=== PATIENT | male | born 1955 ===

== ENCOUNTER 2020-11-04 07:51 | Outpatient (REF) | payer OTHER, SELFPAY ==
--- NOTE | 2020-11-04 | PFT_ITS ---
FLOWS: FEV1 of 86% of predicted at 2.96 L. FVC 74% of predicted at 3.44 L. FEV1 to FVC ratio of 0.86. No bronchodilator response. LUNG VOLUMES: Total lung capacity 64% of predicted at 4.49 L. Residual volume 38% of predicted at 0.90 L. Slow vital capacity 77% of predicted at 3.59 L. Expiratory reserve volume 130% of predicted at 1.75 L. Diffusion capacity is mildly decreased, diffusion capacity adjust to normal after correction for alveolar ventilation. IMPRESSION: Mild restrictive ventilatory defect with no bronchodilator response. Jarret Weir MD AP/MODL / [id number]
== END 2020-11-04 07:52 | disposition home or self-care (01) ==
LOC: HO.RESP 07:51
PROVIDERS: PCP Internal Medicine; Visit Provider Hospitalist
DX: J45.40 Moderate persistent asthma, uncomplicated (principal)
CPT/HCPCS: 94060; 94727; 94729

== ENCOUNTER 2021-05-26 07:34 | Outpatient (REF) | payer OTHER, SELFPAY ==
--- NOTE | ~2021-05-26 | CT_ITS ---
EXAMINATION: CT CHEST WITHOUT CONTRAST CLINICAL INFORMATION: Sarcoidosis, unspecified. COMPARISON: None TECHNIQUE: Multidetector volumetric CT imaging of the chest was done. Axial MIP volume rendering provided. Sagittal and coronal reformatted images were obtained. This CT examination was performed using dose optimization techniques as appropriate, variously including the following: *Automated exposure control *Adjustment of mA and/or kV according to patient size (this includes techniques or standardized protocols for targeted exams where dose is matched to indication/reason for exam; i.e. extremities or head) *Use of iterative reconstruction technique DLP: 169 mGy-cm FINDINGS: LUNGS/PLEURA/AIRWAYS: Mild biapical pleural thickening and scarring is seen. Multiple nodules are seen bilaterally. Organ Tuner nodules are as follows: Right apex: 0.5 cm; image 127, series 7. Left upper lobe: 0.7 cm; image 207, series 7. Left upper lobe: 0.5 cm; image 47, series 7. Left upper lobe, posterior: 0.5 cm; image 252, series 7. Left lower lobe, posterolateral: 0.5 cm; image 525, series 7. Focal groundglass opacities are seen in the lingula (payable representative image 314, series 7), right lower lobe anterior (image 482, series 7) and right lower lobe posterior (image 524, series 7). There are no pleural effusions. The airways are patent. MEDIASTINUM: Surgical clips overlie the anteroinferior neck soft tissues without abnormality. The visualized thyroid gland is unremarkable. The thoracic aorta is unremarkable. Minimal coronary artery calcifications are seen. No pericardial effusion. Multiple mildly enlarged to enlarged mediastinal lymph nodes are seen. A payable representative aorticopulmonary lymph node measures 1.1 cm in short axis (image 23, series 3). A right precarinal lymph node measures 1.4 cm in short axis (image 26, series 3). A right subcarinal lymph node measures 1.4 cm in short axis (image 31, series 3). UPPER ABDOMEN: Status post cholecystectomy. MUSCULOSKELETAL: Mild thoracolumbar dextro scoliosis without suspicious abnormality. SOFT TISSUES: Unremarkable. CT/CT chest wo con IMPRESSION: 1. Mediastinal lymphadenopathy, pulmonary nodules and groundglass opacities bilaterally are nonspecific, but correlate with history of sarcoidosis. Given the pulmonary nodules measuring up to 0.7 cm, following Fleischner Society guidelines, a follow-up CT scan is recommended in 6 months as there is no previous study available for comparison.
== END 2021-05-26 07:35 | disposition home or self-care (01) ==
LOC: HO.CT 07:34
PROVIDERS: PCP Internal Medicine; Visit Provider Hospitalist
DX: D86.9 Sarcoidosis, unspecified (principal); J98.4 Other disorders of lung
CPT/HCPCS: 71250

== ENCOUNTER → 2021-06-09 09:35 | Outpatient (BNVA) | payer OTHER, SELFPAY | PROVIDERS: PCP Internal Medicine; Visit Provider Hospitalist ==

== ENCOUNTER 2022-02-27 14:37 | Outpatient (REF) | payer MEDICARE, SELFPAY ==
[2022-02-27 14:58] LABS: MANUAL DIFF FLAG NO
[2022-02-27 15:19] LABS: Basophils Percent Auto 0.2 % (0-2); Eosinophils Absolute Auto 0.1 X10*3/uL (0.0-0.4); Eosinophils Percent Auto 1.9 % (0-4); Hemoglobin 15.8 g/dl (14.0-18.0); Imm Gran Abs Auto 0.02 X10*3/uL (0.00-0.03); Imm Gran Pct Auto 0.5 % (0.0-0.4); Lymphocytes Percent Auto 23.3 % (20-40); Mean Corpuscular HGB Conc 34.3 g/dl (31.0-36.0); Mean Corpuscular Hemoglobin 30.6 pg (27.0-33.0); Mean Platelet Volume 9.3 fL (9.4-12.4); Monocytes Absolute Auto 0.5 X10*3/uL (0.1-1.2); Monocytes Percent Auto 11.1 % (2-11); Neutrophils Absolute Auto 2.7 x10*3/uL (2.0-8.3); Platelet Count 198 X10*3/uL (160-400); Red Blood Count 5.17 X10*6/uL (4.60-5.80); Red Cell Distribution Width 12.8 % (11.0-16.0); White Blood Count 4.2 X10*3/uL (4.8-10.8)
[2022-02-27 15:43] LABS: Alanine Aminotransferase 38 U/L (0-40); Albumin Level 4.4 g/dL (3.5-5.0); Alkaline Phosphatase 99 U/L (39-117); Anion Gap 12 (12-20); Aspartate Amino Transferase 22 U/L (5-37); Bilirubin Direct 0.2 mg/dL (0.0-0.5); Bilirubin Total 0.8 mg/dL (0.0-1.0); Blood Urea Nitrogen 24 mg/dL (9-16); Calcium 9.4 mg/dL (8.4-10.2); Carbon Dioxide 27 mmol/L (22-29); Chloride 102 mmol/L (96-108); Estimated Glomerular Filt Rate > 60; Glucose Random 224 mg/dL (60-115); Potassium 4.3 mmol/L (3.3-5.1); Sodium 137 mmol/L (135-145); Total Protein 7.4 g/dL (6.5-8.0)
[2022-02-27 15:59] LABS: Erythrocyte Sedimentation Rate 7 MM/HR (0-15)
[2022-03-06 15:21] LABS: Angiotensin Converting Enzyme 41 U/L (9-67)
== END 2022-02-27 14:38 | disposition home or self-care (01) ==
LOC: HO.LAB 14:37
PROVIDERS: PCP Internal Medicine; Visit Provider Hospitalist
DX: D86.9 Sarcoidosis, unspecified (principal)
CPT/HCPCS: 36415; 80048; 80076; 82164; 85025; 85652

== ENCOUNTER → 2022-05-25 08:25 | Outpatient (BNVA) | payer MEDICARE, SELFPAY | PROVIDERS: PCP Internal Medicine; Visit Provider Hospitalist | DX: J84.9 Interstitial pulmonary disease, unspecified (principal); J45.20 Mild intermittent asthma, uncomplicated; R91.8 Other nonspecific abnormal finding of lung field; D86.9 Sarcoidosis, unspecified | CPT/HCPCS: 99212 ==

== ENCOUNTER 2022-08-24 09:58 | Outpatient (REF) | payer MEDICARE, SELFPAY ==
[2022-08-24 10:49] LABS: MANUAL DIFF FLAG NO
[2022-08-24 10:59] LABS: Basophils Percent Auto 0.1 % (0-2); Eosinophils Absolute Auto 0.1 X10*3/uL (0.0-0.4); Eosinophils Percent Auto 1.6 % (0-4); Hematocrit 47.8 % (42.0-52.0); Hemoglobin 16.7 g/dl (14.0-18.0); Imm Gran Abs Auto 0.02 X10*3/uL (0.00-0.03); Imm Gran Pct Auto 0.3 % (0.0-0.4); Lymphocytes Percent Auto 14.1 % (20-40); Mean Corpuscular HGB Conc 34.9 g/dl (31.0-36.0); Mean Corpuscular Hemoglobin 30.7 pg (27.0-33.0); Mean Corpuscular Volume 87.9 fL (80.0-98.0); Mean Platelet Volume 9.2 fL (9.4-12.4); Monocytes Absolute Auto 0.6 X10*3/uL (0.1-1.2); Neutrophils Absolute Auto 5.3 x10*3/uL (2.0-8.3); Neutrophils Percent Auto 75.9 % (45-73); Platelet Count 211 X10*3/uL (160-400); Red Blood Count 5.44 X10*6/uL (4.60-5.80); Red Cell Distribution Width 12.4 % (11.0-16.0)
[2022-08-24 11:42] LABS: Erythrocyte Sedimentation Rate 7 MM/HR (0-15)
[2022-08-24 11:54] LABS: Alanine Aminotransferase 34 U/L (0-40); Alkaline Phosphatase 102 U/L (39-117); Anion Gap 10 (12-20); Aspartate Amino Transferase 23 U/L (5-37); Bilirubin Direct 0.2 mg/dL (0.0-0.5); Bilirubin Total 0.8 mg/dL (0.0-1.0); Blood Urea Nitrogen 21 mg/dL (9-16); Calcium 9.2 mg/dL (8.4-10.2); Carbon Dioxide 27 mmol/L (22-29); Chloride 103 mmol/L (96-108); Estimated Glomerular Filt Rate > 60; Glucose Random 191 mg/dL (60-115); Lipase 36 U/L (8-78); Potassium 4.2 mmol/L (3.3-5.1); Sodium 136 mmol/L (135-145); Total Protein 6.7 g/dL (6.5-8.0)
== END 2022-08-24 09:59 | disposition home or self-care (01) ==
LOC: HO.LAB 09:58
PROVIDERS: PCP Internal Medicine; Visit Provider Hospitalist
DX: R10.9 Unspecified abdominal pain (principal); D86.9 Sarcoidosis, unspecified
CPT/HCPCS: 36415; 80048; 80076; 83690; 85025; 85652; 99212

== ENCOUNTER → 2022-12-22 10:01 | Outpatient (BNVA) | payer MEDICARE, SELFPAY | PROVIDERS: Visit Provider Hospitalist | DX: D86.9 Sarcoidosis, unspecified (principal); R91.8 Other nonspecific abnormal finding of lung field; J18.9 Pneumonia, unspecified organism; J84.9 Interstitial pulmonary disease, unspecified; J45.20 Mild intermittent asthma, uncomplicated; J98.4 Other disorders of lung | CPT/HCPCS: 99212 ==

== ENCOUNTER 2023-05-18 09:16 | Outpatient (AMB) | payer MEDICARE, SELFPAY ==
[2023-05-18 09:27] VITALS: PULSE 78; O2SAT 98; BMI 24.8
--- NOTE | 2023-05-18 09:27 | MHC.OFFVIS ---
Intake Vital Signs 05/18/23 09:27 Height 5 ft 10 in Weight 173 lb BMI 24.8 Pulse 78 Pulse Source Pulse Oximeter Pulse Oximetry (%) 98 Oxygen Delivery Method Room Air Intake Visit Reasons: sarcoidosis Radiology Therapist Required: No Allergies No Known Allergies Allergy (Verified 05/18/23 09:28) HPI HPI Comments History of Present Illness Details The patient is a 66 [id number] gentleman with a known history of sarcoidosis in addition to asthma. Patient may indeed have some endobronchial sarcoid involvement. He had been doing very well intermittently on Breo. More recently in the end of July early August he started developing symptoms consistent with a viral syndrome. He developed worsening respiratory symptoms and was treated by his primary care doctor. Still, he feels like his respiratory symptoms have not recovered 100%. Sometimes he developed episodes of not been able to breathe well. He did try Advair but was not very effective. He was concerned the Breo is more money more expenses. Although he has noticed that works better. He also did have a chest x-ray at [facility] back in September of this year that we personally reviewed demonstrating interval decrease in the hilar lymphadenopathy. Otherwise, no acute disease. His last CT scan of the chest was at [facility] back in 2018. 02/27/2022 the patient is here for a pulmonary follow-up visit. Overall the patient has been doing relatively well. He still has an intermittent cough. Although denies any shortness breath or Any discomfort. He did undergo a CT scan of the chest at [facility]. That was compared to a CT scan he had back in 2018. It appears that he had interval worsening the airspace disease bilaterally in addition to new pulmonary nodules measuring up to 7 mm in size. The ground-glass opacities areas vary between 2 and 4 cm in size. I did compare his CT scan results from [facility] to his last CT scan that he had back in 2020. It appeared that the nodules are relatively stable. Although the areas of airspace disease appeared to be slightly bigger in size. In view of the worsening disease I did talk to the patient about considering treating him with small dose of prednisone to see if we leave the 8 the pulmonary nodules in the airspace disease. And therefore will have a short interval before repeating the CT scan of 3 months to see if the therapy was effective. The patient stands that although this is likely all sarcoid in his lungs we cannot rule out a secondary concomitant medical issues including cancer. 05/25/2022 the patient is here for a pulmonary follow-up visit. Overall he has been feeling better while on the prednisone. Denies any significant shortness of breath or cough. However, the prednisone has resulted on significantly elevated blood sugars and hemoglobin A1c. His diabetes medication for indeed increased. However, still very uncontrolled. He did have a repeat CT scan of the chest done at [facility] demonstrating some improvement some of the parenchymal disease and also some stability. No evidence of any worsening or new nodules which is reassuring. We talked about using immunomodulators to treat his underlying sarcoidosis try to minimize the prednisone adverse effects. The patient is agreeable to this. Talked about different immunomodulators including mycophenolate and methotrexate. Will go ahead and start him on mycophenolate small dose to titrate up in addition to that will have blood work to make sure that he is tolerating the medication. 08/24/2022 the patient is here for a pulmonary follow-up visit. The patient has been responding well to the CellCept. His sugars are now normalized. He has not had any adverse effects from the medication. He is taking 500 mg twice a day. Explained to him that this is a very low dose and is reassuring. From a respiratory status he feels well he denies any significant coughing or shortness of breath. He denies any significant wheezing. Overall he feels like he is responding positively to the medication. His blood work needs to be updated. The patient understands that this medication has potential side effects and he needs to undergo blood work to make sure. The patient has been describing some epigastric discomfort. He is following closely with his GI doctor. Recently had a barium swallow and will follow-up with those results. At this point I doubt that the epigastric discomfort is related to the CellCept but will go ahead and also request additional blood work just to work it up some. His last CT scan was back in May 2022. Will continue to treat him monitor him. As long as he is doing okay will hold off till May [address] scan. If at any point he develops worsening symptoms we may have to consider getting a CT scan sooner. 12/22/2022 the patient is here for pulmonary follow-up visit. He is tolerating the CellCept well. His respiratory symptoms have improved. Denies any wheezing or coughing or shortness of breath. He has been able to work more regularly without being breathless. He feels like is a good medication for him. In the meantime he did follow-up with GI doctor. Is found to have reflux disease and was placed on a PPI. Seems like the GI symptoms are better at this time. Is also good that he is off the prednisone and likely contributing to those discomforts. The patient's sugars also coming down in his hemoglobin A1c is normalizing which is happy about. Based on the fact that he is doing well will continue with current respiratory regimen. Will continue the with current CellCept dose. The patient will need to get blood work over the summer. Will plan to repeat his CT scan at [facility] sometime in May 2023 to follow-up with the interstitial lung changes in the pulmonary nodules. 05/18/2023 the patient is here for a pulmonary follow-up visit. Overall he continues to do well. Continues to tolerate the CellCept. His cough is better and breathlessness as well. No GI side effects at this time. The patient did undergo a CT scan of the chest that was personally by me. Unfortunately he does have some interval increase areas of ground-glass opacities and nodular densities. Therefore I suggested that we increase the CellCept further in a stepwise pattern up to 2 g a day. Once he reaches that therapeutic dose will go ahead and request blood work to make sure that his liver function studies and chemistries and CBC are still within normal limits. [facility] Medical History (Updated 08/24/22 @ 10:40 by Johan Emmanuel MD) Pulmonary nodules ILD (interstitial lung disease) Asthma Chronic restrictive lung disease Sarcoidosis Social History (Updated 06/09/21 @ 10:00 by LAWRENCE Ryan) Patient Tobacco Use Status: Never used Tobacco Review of Systems Const Denies night sweats ENT Denies change in voice, Denies lip swelling, Denies mouth pain, Reports nasal congestion, Reports nasal discharge and Denies tongue swelling Card Denies chest pain Resp Denies cough GI Denies abdominal pain and Denies belching Musc Denies no additional complaints Neuro Denies Neuro-related abnormal movements Psych Denies no additional complaints Tayo/Lymph Denies easy bleeding and Denies lymphadenopathy Aller/Immun Denies lip swelling and Denies tongue swelling Physical Exam Vital Signs: Last Vital Signs Pulse 78 05/18/23 09:27 Pulse Ox 98 10/10/23 09:27 Oxygen Delivery Method Room Air 05/18/23 09:27 BMI result Body Mass Index 24.8 Const General: alert Neck Neck: Yes normal visual inspection, Yes full ROM and Yes no lymphadenopathy Chest Chest palpation & inspection: normal inspection of the chest Resp Effort & Inspection: normal respiratory effort Auscultation: clear to auscultation bilaterally Cardio Rate: regular rate Rhythm: regular rhythm Heart sounds: S1 normal heart sound present and S2 normal heart sound present GI Palpation (GI): Soft to palpation and nontender Auscultation: normal bowel sounds Skin General skin exam: rashes and/or lesions noted Assessment & Plan Assessment & Plan (1) Sarcoidosis: Code(s): D86.9 - Sarcoidosis, unspecified (2) ILD (interstitial lung disease): Code(s): J84.9 - Interstitial pulmonary disease, unspecified (3) Asthma: Code(s): J45.909 - Unspecified asthma, uncomplicated Qualifiers: Asthma severity: mild Asthma persistence: intermittent Asthma complication type: uncomplicated Qualified Code(s): J45.20 - Mild intermittent asthma, uncomplicated (4) Chronic restrictive lung disease: Code(s): J98.4 - Other disorders of lung (5) Pneumonitis: Code(s): J18.9 - Pneumonia, unspecified organism (6) Pulmonary nodules: Code(s): R91.8 - Other nonspecific abnormal finding of lung field Plan increase Mycophenalate 1000mg BID Labs in 2 months F/U 4-6 months Orders: Orders Liver Panel Today D86.9 - Sarcoidosis, unspecified Angiotensin Converting Enzyme Today D86.9 - Sarcoidosis, unspecified Complete Blood Count Auto Diff Today D86.9 - Sarcoidosis, unspecified Basic Metabolic Panel Today D86.9 - Sarcoidosis, unspecified Erythrocyte Sedimentation Rate Today D86.9 - Sarcoidosis, unspecified Medications: Changed From mycophenolate mofetil 500 mg PO BID 60 tabs 6RF To mycophenolate mofetil 1,000 mg (2 x 500 mg) PO BID 30 days 120 tabs 11RF Coding Level of Care Code Est Pt Level 4 (81269) Diagnoses Sarcoidosis D86.9 ILD (interstitial lung disease) J84.9 Mild intermittent asthma without complication J45.20 Asthma severity: mild Asthma persistence: intermittent Asthma complication type: uncomplicated Chronic restrictive lung disease J98.4 Pneumonitis J18.9 Pulmonary nodules R91.8 Time Spent (min) 16
== END 2023-05-18 09:48 | disposition home or self-care (01) ==
PROVIDERS: PCP Nurse Practitioner Primary Care; Visit Provider Hospitalist
DX: D86.9 Sarcoidosis, unspecified (principal); J84.9 Interstitial pulmonary disease, unspecified; J45.20 Mild intermittent asthma, uncomplicated; J98.4 Other disorders of lung; J18.9 Pneumonia, unspecified organism; R91.8 Other nonspecific abnormal finding of lung field
CPT/HCPCS: 99214

== ENCOUNTER → 2023-05-18 09:16 | Outpatient (BNVA) | payer MEDICARE, SELFPAY | PROVIDERS: Visit Provider Hospitalist | DX: D86.9 Sarcoidosis, unspecified (principal); J45.20 Mild intermittent asthma, uncomplicated; R91.8 Other nonspecific abnormal finding of lung field; J84.9 Interstitial pulmonary disease, unspecified; J98.4 Other disorders of lung; J18.9 Pneumonia, unspecified organism | CPT/HCPCS: 99212 ==

== ENCOUNTER 2023-07-27 09:33 | Outpatient (REF) | payer MEDICARE, SELFPAY ==
[2023-07-27 09:54] LABS: MANUAL DIFF FLAG NO
[2023-07-27 10:00] LABS: Basophils Percent Auto 0.2 % (0-2); Eosinophils Absolute Auto 0.1 X10*3/uL (0.0-0.4); Eosinophils Percent Auto 2.2 % (0-4); Hematocrit 46.6 % (42.0-52.0); Imm Gran Abs Auto 0.02 X10*3/uL (0.00-0.03); Imm Gran Pct Auto 0.5 % (0.0-0.4); Lymphocytes Percent Auto 23.4 % (20-40); Mean Corpuscular HGB Conc 34.3 g/dl (31.0-36.0); Mean Corpuscular Hemoglobin 30.5 pg (27.0-33.0); Mean Corpuscular Volume 88.8 fL (80.0-98.0); Mean Platelet Volume 9.4 fL (9.4-12.4); Monocytes Absolute Auto 0.5 X10*3/uL (0.1-1.2); Neutrophils Absolute Auto 2.5 x10*3/uL (2.0-8.3); Neutrophils Percent Auto 60.7 % (45-73); Platelet Count 180 X10*3/uL (160-400); Red Blood Count 5.25 X10*6/uL (4.60-5.80); Red Cell Distribution Width 12.8 % (11.0-16.0); White Blood Count 4.1 X10*3/uL (4.8-10.8)
[2023-07-27 10:38] LABS: Erythrocyte Sedimentation Rate 5 MM/HR (0-15)
[2023-07-27 10:39] LABS: Alanine Aminotransferase 49 U/L (0-40); Albumin Level 4.1 g/dL (3.5-5.0); Alkaline Phosphatase 89 U/L (39-117); Anion Gap 12 (12-20); Aspartate Amino Transferase 25 U/L (5-37); Bilirubin Direct 0.2 mg/dL (0.0-0.5); Bilirubin Total 0.9 mg/dL (0.0-1.0); Blood Urea Nitrogen 25 mg/dL (9-16); Calcium 9.2 mg/dL (8.4-10.2); Carbon Dioxide 27 mmol/L (22-29); Chloride 105 mmol/L (96-108); Estimated Glomerular Filt Rate > 60; Glucose Random 169 mg/dL (60-115); Potassium 4.5 mmol/L (3.3-5.1); Sodium 139 mmol/L (135-145); Total Protein 6.8 g/dL (6.5-8.0)
[2023-08-01 07:52] LABS: Angiotensin Converting Enzyme 44 U/L (9-67)
== END 2023-07-27 09:34 | disposition home or self-care (01) ==
LOC: HO.LAB 09:33
PROVIDERS: PCP Nurse Practitioner Primary Care; Visit Provider Hospitalist
DX: D86.9 Sarcoidosis, unspecified (principal)
CPT/HCPCS: 36415; 80048; 80076; 82164; 85025; 85652

== ENCOUNTER → 2023-12-03 06:54 | Outpatient (BNV) | payer MEDICARE, SELFPAY | PROVIDERS: PCP Nurse Practitioner Primary Care; Visit Provider Internal Medicine | DX: I49.8 Other specified cardiac arrhythmias (principal) | CPT/HCPCS: 93010 ==

== ENCOUNTER 2023-12-03 09:46 | Outpatient (AMB) | payer MEDICARE, SELFPAY ==
--- NOTE | 2023-12-03 09:52 | A.OFFVIS_ITS ---
Vital Signs 12/03/23 09:53 Height 5 ft 10 in Weight 174 lb 2.643 oz BMI 25.0 BP 118/70 Blood Pressure Location Lt brachial Position Sitting Pulse 70 Pulse Source Pulse Oximeter Pulse Oximetry (%) 97 Oxygen Delivery Method Room Air Intake Visit Reasons: sarcoidosis Rn School Required: No Allergies No Known Allergies Allergy (Verified 12/03/23 09:55) HPI Comments Details: The patient is a 67-year-old gentleman with a known history of sarcoidosis in addition to asthma. Patient may indeed have some endobronchial sarcoid involvement. He had been doing very well intermittently on Breo. More recently in the end of July early August he started developing symptoms consistent with a viral syndrome. He developed worsening respiratory symptoms and was treated by his primary care doctor. Still, he feels like his respiratory symptoms have not recovered 100%. Sometimes he developed episodes of not been able to breathe well. He did try Advair but was not very effective. He was concerned the Breo is more money more expenses. Although he has noticed that works better. He also did have a chest x-ray at [facility] back in September of this year that we personally reviewed demonstrating interval decrease in the hilar lymphadenopathy. Otherwise, no acute disease. His last CT scan of the chest was at [facility] back in 2018. 02/27/2022 the patient is here for a pulmonary follow-up visit. Overall the patient has been doing relatively well. He still has an intermittent cough. Although denies any shortness breath or Any discomfort. He did undergo a CT scan of the chest at [facility]. That was compared to a CT scan he had back in 2018. It appears that he had interval worsening the airspace disease bilaterally in addition to new pulmonary nodules measuring up to 7 mm in size. The ground-glass opacities areas vary between 2 and 4 cm in size. I did compare his CT scan results from [facility] to his last CT scan that he had back in 2020. It appeared that the nodules are relatively stable. Although the areas of airspace disease appeared to be slightly bigger in size. In view of the worsening disease I did talk to the patient about considering treating him with small dose of prednisone to see if we leave the 8 the pulmonary nodules in the airspace disease. And therefore will have a short interval before repeating the CT scan of 3 months to see if the therapy was effective. The patient stands that although this is likely all sarcoid in his lungs we cannot rule out a secondary concomitant medical issues including cancer. 05/25/2022 the patient is here for a pulmonary follow-up visit. Overall he has been feeling better while on the prednisone. Denies any significant shortness of breath or cough. However, the prednisone has resulted on significantly elevated blood sugars and hemoglobin A1c. His diabetes medication for indeed increased. However, still very uncontrolled. He did have a repeat CT scan of the chest done at [facility] demonstrating some improvement some of the parenchymal disease and also some stability. No evidence of any worsening or new nodules which is reassuring. We talked about using immunomodulators to treat his underlying sarcoidosis try to minimize the prednisone adverse effects. The patient is agreeable to this. Talked about different immunomodulators including mycophenolate and methotrexate. Will go ahead and start him on mycophenolate small dose to titrate up in addition to th at will have blood work to make sure that he is tolerating the medication. 08/24/2022 the patient is here for a pulmonary follow-up visit. The patient has been responding well to the CellCept. His sugars are now normalized. He has not had any adverse effects from the medication. He is taking 500 mg twice a day. Explained to him that this is a very low dose and is reassuring. From a respiratory status he feels well he denies any significant coughing or shortness of breath. He denies any significant wheezing. Overall he feels like he is responding positively to the medication. His blood work needs to be updated. The patient understands that this medication has potential side effects and he needs to undergo blood work to make sure. The patient has been describing some epigastric discomfort. He is following closely with his GI doctor. Recently had a barium swallow and will follow-up with those results. At this point I doubt that the epigastric discomfort is related to the CellCept but will go ahead and also request additional blood work just to work it up some. His last CT scan was back in May 2022. Will continue to treat him monitor him. As long as he is doing okay will hold off till May [address] scan. If at any point he develops worsening symptoms we may have to consider getting a CT scan sooner. 12/22/2022 the patient is here for pulmonary follow-up visit. He is tolerating the CellCept well. His respiratory symptoms have improved. Denies any wheezing or coughing or shortness of breath. He has been able to work more regularly without being breathless. He feels like is a good medication for him. In the meantime he did follow-up with GI doctor. Is found to have reflux disease and was placed on a PPI. Seems like the GI symptoms are better at this time. Is also good that he is off the prednisone and likely contributing to those discomforts. The patient's sugars also coming down in his hemoglobin A1c is normalizing which is happy about. Based on the fact that he is doing well will continue with current respiratory regimen. Will continue the with current CellCept dose. The patient will need to get blood work over the summer. Will plan to repeat his CT scan at [facility] sometime in May 2023 to follow-up with the interstitial lung changes in the pulmonary nodules. 05/18/2023 the patient is here for a pulmonary follow-up visit. Overall he continues to do well. Continues to tolerate the CellCept. His cough is better and breathlessness as well. No GI side effects at this time. The patient did undergo a CT scan of the chest that was personally by me. Unfortunately he does have some interval increase areas of ground-glass opacities and nodular densities. Therefore I suggested that we increase the CellCept further in a stepwise pattern up to 2 g a day. Once he reaches that therapeutic dose will go ahead and request blood work to make sure that his liver function studies and chemistries and CBC are still within normal limits. 12/03/2023 the patient is here for pulmonary follow-up. The patient states that several months ago he was started developing increasing shortness of katie th. He could not explain the symptoms. Dyspnea on exertion moderate severity. He went to primary care doctor. He did have an EKG demonstrating sinus arrhythmia. In addition to that he was not provided any other therapies that he is aware of. He did undergo an echocardiogram. The patient states that he did have a stress test in the past but many years ago. In addition to that he has been on the higher dose CellCept 2 g a day. He did have blood work number which was reassuring and also had blood work with his primary care doctor. We did look at the last CT scan that he had back in a lining stitcher 2022 demonstrating interval worsening of the interstitial lung disease and does want increase the CellCept to the current dose. Therefore request a chest x-ray. His respiratory exam is fairly stable and does feel better so therefore I do not think moving up the CT scan will be necessary at this time. If the x-ray is abnormal then will get a CT scan earlier time. Will also repeat the EKG. The patient may benefit from a cardiac stress if he continues have symptoms. [facility] Medical History (Updated 08/24/22 @ 10:40 by Johan Emmanuel MD) Pulmonary nodules ILD (interstitial lung disease) Asthma Chronic restrictive lung disease Sarcoidosis Social History (Updated 06/09/21 @ 10:00 by LAWRENCE Ryan) Patient Tobacco Use Status: Never used Tobacco Review of Systems Const Denies night sweats ENT Denies change in voice, Denies lip swelling, Denies mouth pain, Reports nasal congestion, Reports nasal discharge and Denies tongue swelling Card Denies chest pain Resp Denies cough GI Denies abdominal pain and Denies belching Musc Denies no additional complaints Neuro Denies Neuro-related abnormal movements Psych Denies no additional complaints Tayo/Lymph Denies easy bleeding and Denies lymphadenopathy Aller/Immun Denies lip swelling and Denies tongue swelling Physical Exam Vital Signs: Last Vital Signs Pulse 70 12/03/23 09:53 BP 118/70 12/03/23 09:53 Pulse Ox 97 12/03/23 09:53 Oxygen Delivery Method Room Air 12/03/23 09:53 BMI result Body Mass Index 25.0 Const General: alert Neck Neck: Yes normal visual inspection, Yes full ROM and Yes no lymphadenopathy Chest Chest palpation & inspection: normal inspection of the chest Resp Effort & Inspection: normal respiratory effort Auscultation: clear to auscultation bilaterally Cardio Rate: regular rate Rhythm: regular rhythm Heart sounds: S1 normal heart sound present and S2 normal heart sound present GI Palpation (GI): Soft to palpation and nontender Auscultation: normal bowel sounds Skin General skin exam: rashes and/or lesions noted Assessment & Plan Assessment & Plan (1) Sarcoidosis: Code(s): D86.9 - Sarcoidosis, unspecified Category: Medical (2) ILD (interstitial lung disease): Code(s): J84.9 - Interstitial pulmonary disease, unspecified Category: Medical (3) Asthma: Code(s): J45.909 - Unspecified asthma, uncomplicated Category: Medical Qualifiers: Asthma complication type: uncomplicated Asthma persistence: intermittent Asthma severity: mild Qualified Code(s): J45.20 - Mild intermittent asthma, uncomplicated (4) Chronic restrictive lung disease: Code(s): J98.4 - Other disorders of lung Category: Medical (5) Pneumonitis: Code(s): J18.9 - Pneumonia, unspecified organism Category: Medical (6) Pulmonary nodules: Code(s): R91.8 - Other nonspecific abnormal finding of lung field Category: Medical Plan continue Mycophenalate 1000mg BID bloodwork CXR EKG CT chest 6 months PETER as needed F/U 4-6 months Orders: Orders CT chest wo IV con 6 Months J18.9 - Pneumonia, unspecified organism, J84.9 - Interstitial pulmonary disease, unspecified, R91.8 - Other nonspecific abnormal finding of lung field ECG 12 lead EKG 12/03/23 D86.9 - Sarcoidosis, unspecified XR chest 2V 12/03/23 D86.9 - Sarcoidosis, unspecified Medications: New albuterol sulfate 90 mcg/actuation 2 inhalations inhalation Q6H PRN 18 grams 12RF shortness of breath or wheezing 30 days J44.9 - Chronic obstructive pulmonary disease, unspecified, R91.8 - Other nonspecific abnormal finding of lung field Coding Level of Care Code Est Pt Level 4 (13076) Diagnoses Sarcoidosis D86.9 ILD (interstitial lung disease) J84.9 Mild intermittent asthma without complication J45.20 Asthma complication type: uncomplicated Asthma persistence: intermittent Asthma severity: mild Chronic restrictive lung disease J98.4 Pneumonitis J18.9 Pulmonary nodules R91.8 Time Spent (min) 17
[2023-12-03 09:53] VITALS: BP 118/70; PULSE 70; O2SAT 97; BMI 25.0
== END 2023-12-03 10:09 | disposition home or self-care (01) ==
PROVIDERS: PCP Nurse Practitioner Primary Care; Visit Provider Hospitalist
DX: D86.9 Sarcoidosis, unspecified (principal); J84.9 Interstitial pulmonary disease, unspecified; J45.20 Mild intermittent asthma, uncomplicated; J98.4 Other disorders of lung; J18.9 Pneumonia, unspecified organism; R91.8 Other nonspecific abnormal finding of lung field
CPT/HCPCS: 99214

== ENCOUNTER 2023-12-03 09:46 | Outpatient (REF) | payer MEDICARE, SELFPAY ==
--- NOTE | ~2023-12-03 | XR_ITS ---
EXAMINATION: XR CHEST CLINICAL INFORMATION: Sarcoidosis, unspecified COMPARISON: Chest CT 05/26/2021 TECHNIQUE: 2 views of the chest were obtained. FINDINGS: Patchy opacities are again seen in the lingula and right lower lobe are without significant change compared to 05/26/2021. There is fullness of the right paratracheal stripe likely due to lymphadenopathy. No pleural effusion. Mild biapical pleural thickening is noted. No significant abnormality is noted involving the heart, bony thorax or soft tissues. XR/XR chest 2V IMPRESSION: Parenchymal opacities and likely mediastinal lymphadenopathy can be seen with in stage II sarcoidosis.
--- NOTE | 2023-12-03 06:54 | ECG_ITS ---
Test Reason : D86.9 Blood Pressure : / mmHG Vent. Rate : 063 BPM Atrial Rate : 063 BPM P-R Int : 196 ms QRS Dur : 096 ms QT Int : 396 ms P-R-T Axes : 033 017 050 degrees QTc Int : 405 ms Sinus rhythm with marked sinus arrhythmia Otherwise normal ECG No previous ECGs available Referred By: Johan Emmanuel Electronically Signed By:JANETH GA
== END 2023-12-03 09:47 | disposition home or self-care (01) ==
LOC: HO.XRAY 09:46
PROVIDERS: PCP Nurse Practitioner Primary Care; Visit Provider Hospitalist
DX: J84.9 Interstitial pulmonary disease, unspecified (principal); J45.20 Mild intermittent asthma, uncomplicated; J98.4 Other disorders of lung; J44.9 Chronic obstructive pulmonary disease, unspecified; D86.9 Sarcoidosis, unspecified; R91.8 Other nonspecific abnormal finding of lung field
CPT/HCPCS: 71046; 93005; 99212

== ENCOUNTER 2024-06-02 08:48 | Outpatient (AMB) | payer MEDICARE, SELFPAY ==
--- NOTE | 2024-06-02 08:59 | A.OFFVIS_ITS ---
Vital Signs 06/02/24 09:00 Height 5 ft 10 in Weight 176 lb 5.917 oz BMI 25.3 BP 128/70 Blood Pressure Location Lt brachial Position Sitting Pulse 82 Pulse Source Pulse Oximeter Pulse Oximetry (%) 98 Oxygen Delivery Method Room Air Intake Visit Reasons: Sarcoidosis Shower Screen Installer Required: No Allergies No Known Allergies Allergy (Verified 06/02/24 08:59) HPI Comments Details: The patient is a 67-year-old gentleman with a known history of sarcoidosis in addition to asthma. Patient may indeed have some endobronchial sarcoid involvement. He had been doing very well intermittently on Breo. More recently in the end of July early August he started developing symptoms consistent with a viral syndrome. He developed worsening respiratory symptoms and was treated by his primary care doctor. Still, he feels like his respiratory symptoms have not recovered 100%. Sometimes he developed episodes of not been able to breathe well. He did try Advair but was not very effective. He was concerned the Breo is more money more expenses. Although he has noticed that works better. He also did have a chest x-ray at [facility] back in September of this year that we personally reviewed demonstrating interval decrease in the hilar lymphadenopathy. Otherwise, no acute disease. His last CT scan of the chest was at [facility] back in 2018. 02/27/2022 the patient is here for a pulmonary follow-up visit. Overall the patient has been doing relatively well. He still has an intermittent cough. Although denies any shortness breath or Any discomfort. He did undergo a CT scan of the chest at [facility]. That was compared to a CT scan he had back in 2018. It appears that he had interval worsening the airspace disease bilaterally in addition to new pulmonary nodules measuring up to 7 mm in size. The ground-glass opacities areas vary between 2 and 4 cm in size. I did compare his CT scan results from [facility] to his last CT scan that he had back in 2020. It appeared that the nodules are relatively stable. Although the areas of airspace disease appeared to be slightly bigger in size. In view of the worsening disease I did talk to the patient about considering treating him with small dose of prednisone to see if we leave the 8 the pulmonary nodules in the airspace disease. And therefore will have a short interval before repeating the CT scan of 3 months to see if the therapy was effective. The patient stands that although this is likely all sarcoid in his lungs we cannot rule out a secondary concomitant medical issues including cancer. 05/25/2022 the patient is here for a pulmonary follow-up visit. Overall he has been feeling better while on the prednisone. Denies any significant shortness of breath or cough. However, the prednisone has resulted on significantly elevated blood sugars and hemoglobin A1c. His diabetes medication for indeed increased. However, still very uncontrolled. He did have a repeat CT scan of the chest done at [facility] demonstrating some improvement some of the parenchymal disease and also some stability. No evidence of any worsening or new nodules which is reassuring. We talked about using immunomodulators to treat his underlying sarcoidosis try to minimize the prednisone adverse effects. The patient is agreeable to this. Talked about different immunomodulators including mycophenolate and methotrexate. Will go ahead and start him on mycophenolate small dose to titrate up in addition to that will have blood work to make sure that he is tolerating the medication. 08/24/2022 the patient is here for a pulmonary follow-up visit. The patient has been responding well to the CellCept. His sugars are now normalized. He has not had any adverse effects from the medication. He is taking 500 mg twice a day. Explained to him that this is a very low dose and is reassuring. From a r espiratory status he feels well he denies any significant coughing or shortness of breath. He denies any significant wheezing. Overall he feels like he is responding positively to the medication. His blood work needs to be updated. The patient understands that this medication has potential side effects and he needs to undergo blood work to make sure. The patient has been describing some epigastric discomfort. He is following closely with his GI doctor. Recently had a barium swallow and will follow-up with those results. At this point I doubt that the epigastric discomfort is related to the CellCept but will go ahead and also request additional blood work just to work it up some. His last CT scan was back in May 2022. Will continue to treat him monitor him. As long as he is doing okay will hold off till May [address] scan. If at any point he develops worsening symptoms we may have to consider getting a CT scan sooner. 12/22/2022 the patient is here for pulmonary follow-up visit. He is tolerating the CellCept well. His respiratory symptoms have improved. Denies any wheezing or coughing or shortness of breath. He has been able to work more regularly without being breathless. He feels like is a good medication for him. In the meantime he did follow-up with GI doctor. Is found to have reflux disease and was placed on a PPI. Seems like the GI symptoms are better at this time. Is also good that he is off the prednisone and likely contributing to those discomforts. The patient's sugars also coming down in his hemoglobin A1c is normalizing which is happy about. Based on the fact that he is doing well will continue with current respiratory regimen. Will continue the with current CellCept dose. The patient will need to get blood work over the summer. Will plan to repeat his CT scan at [facility] sometime in May 2023 to follow-up with the interstitial lung changes in the pulmonary nodules. 05/18/2023 the patient is here for a pulmonary follow-up visit. Overall he continues to do well. Continues to tolerate the CellCept. His cough is better and breathlessness as well. No GI side effects at this time. The patient did undergo a CT scan of the chest that was personally by me. Unfortunately he does have some interval increase areas of ground-glass opacities and nodular densities. Therefore I suggested that we increase the CellCept further in a stepwise pattern up to 2 g a day. Once he reaches that therapeutic dose will go ahead and request blood work to make sure that his liver function studies and chemistries and CBC are still within normal limits. 12/03/2023 the patient is here for pulmonary follow-up. The patient states that several months ago he was started developing increasing shortness of breath. He could not explain the symptoms. Dyspnea on exertion moderate severity. He went to primary care doctor. He did have an EKG demonstrating sinus arrhythmia. In addition to that he was not provided any other therapies that he is aware of. He did undergo an echocardiogram. The patient states that he did have a stress test in the past but many years ago. In addition to that he has been on the higher dose CellCept 2 g a day. He did have blood work number which was reassuring and also had blood work with his primary care doctor. We did look at the last CT scan that he had back in a hspt tutor 2022 demonstrating interval worsening of the interstitial lung disease and does want increase the CellCept to the current dose. Therefore request a chest x-ray. His respiratory exam is fairly stable and does feel better so therefore I do not think moving up the CT scan will be necessary at this time. If the x-ray is abnormal then will get a CT scan earlier time. Will also repeat the EKG. The patient may benefit from a cardiac stress if he continues have symptoms. 06/02/2024 the patient is here for a pulmonary follow-up visit. The patient overall has been doing well. He continues on the CellCept 2 g a day. The patient is tolerating the medicine well. He did have a recent CT scan of the chest at [facility]. It appears that his interstitial lung disease stable on the current dose. He is asking about when he can come off the medicine. At this point he appears to have progressive disease and therefore will keep him on the current dose. But, in the future should look to try to deescalate therapy. For now having some neck and shoulder issues. He may need surgery. So therefore keep him on the current dose. He has his CT scan showed a slightly large liver. Will have him get blood work today. [facility] Medical History (Updated 08/24/22 @ 10:40 by Johan Emmanuel MD) Pulmonary nodules ILD (interstitial lung disease) Asthma Chronic restrictive lung disease Sarcoidosis Social History (Updated 06/09/21 @ 10:00 by Cass Espinal [facility]) Patient Tobacco Use Status: Never used Tobacco Review of Systems Const Denies night sweats ENT Denies change in voice, Denies lip swelling, Denies mouth pain, Reports nasal congestion, Reports nasal discharge, Denies neck pain and Denies tongue swelling Card Denies chest pain Resp Denies cough GI Denies abdominal pain and Denies belching Musc Reports as per HPI, Reports back pain, Denies neck pain and Reports radiating pain into limb Neuro Denies Neuro-related abnormal movements Psych Denies no additional complaints Tayo/Lymph Denies easy bleeding and Denies lymphadenopathy Aller/Immun Denies lip swelling and Denies tongue swelling Physical Exam Vital Signs: Last Vital Signs Pulse 82 06/02/24 09:00 BP 128/70 06/02/24 09:00 Pulse Ox 98 06/02/24 09:00 Oxygen Delivery Method Room Air 06/02/24 09:00 BMI result Body Mass Index 25.3 Const General: alert Neck Neck: Yes normal visual inspection, Yes full ROM and Yes no lymphadenopathy Chest Chest palpation & inspection: normal inspection of the chest Resp Effort & Inspection: normal respiratory effort Auscultation: clear to auscultation bilaterally Cardio Rate: regular rate Rhythm: regular rhythm Heart sounds: S1 normal heart sound present and S2 normal heart sound present GI Palpation (GI): Soft to palpation and nontender Auscultation: normal bowel sounds Skin General skin exam: rashes and/or lesions noted Assessment & Plan Assessment & Plan (1) Sarcoidosis: Code(s): D86.9 - Sarcoidosis, unspecified Category: Medical (2) ILD (interstitial lung disease): Code(s): J84.9 - Interstitial pulmonary disease, unspecified Category: Medical (3) Asthma: Code(s): J45.909 - Unspecified asthma, uncomplicated Category: Medical Qualifiers: Asthma complication type: uncomplicated Asthma persistence: intermittent Asthma severity: mild Qualified Code(s): J45.20 - Mild intermittent asthma, uncomplicated (4) Chronic restrictive lung disease: Code(s): J98.4 - Other disorders of lung Category: Medical (5) Pneumonitis: Code(s): J18.9 - Pneumonia, unspecified organism Category: Medical (6) Pulmonary nodules: Code(s): R91.8 - Other nonspecific abnormal finding of lung field Category: Medical Plan continue Mycophenalate 1000mg BID, consider decreasing medicine next time bloodwork CXR in 6 months PETER as needed F/U 6 months Orders: Orders Complete Blood Count Auto Diff Today J84.9 - Interstitial pulmonary disease, unspecified Erythrocyte Sedimentation Rate Today J84.9 - Interstitial pulmonary disease, unspecified Basic Metabolic Panel Today J84.9 - Interstitial pulmonary disease, unspecified Liver Panel Today J84.9 - Interstitial pulmonary disease, unspecified Coding Level of Care Code Est Pt Level 4 (81411) Diagnoses Sarcoidosis D86.9 ILD (interstitial lung disease) J84.9 Mild intermittent asthma without complication J45.20 Asthma complication type: uncomplicated Asthma persistence: intermittent Asthma severity: mild Chronic restrictive lung disease J98.4 Pneumonitis J18.9 Pulmonary nodules R91.8 Time Spent (min) 17
[2024-06-02 09:00] VITALS: BP 128/70; PULSE 82; O2SAT 98; BMI 25.3
== END 2024-06-02 09:18 | disposition home or self-care (01) ==
PROVIDERS: PCP Nurse Practitioner Primary Care; Visit Provider Hospitalist
DX: D86.9 Sarcoidosis, unspecified (principal); J84.9 Interstitial pulmonary disease, unspecified; J45.20 Mild intermittent asthma, uncomplicated; J98.4 Other disorders of lung; J18.9 Pneumonia, unspecified organism; R91.8 Other nonspecific abnormal finding of lung field
CPT/HCPCS: 99214

== ENCOUNTER 2024-06-02 08:48 | Outpatient (REF) | payer MEDICARE, SELFPAY ==
[2024-06-02 09:35] LABS: MANUAL DIFF FLAG NO
[2024-06-02 10:17] LABS: Basophils Percent Auto 0.2 % (0-2); Eosinophils Absolute Auto 0.1 X10*3/uL (0.0-0.4); Hematocrit 47.8 % (42.0-52.0); Hemoglobin 16.4 g/dl (14.0-18.0); Imm Gran Abs Auto 0.05 X10*3/uL (0.00-0.03); Imm Gran Pct Auto 1.1 % (0.0-0.4); Lymphocytes Absolute Auto 0.8 X10*3/uL (1.2-4.9); Lymphocytes Percent Auto 16.8 % (20-40); Mean Corpuscular HGB Conc 34.3 g/dl (31.0-36.0); Mean Corpuscular Hemoglobin 30.5 pg (27.0-33.0); Mean Corpuscular Volume 88.8 fL (80.0-98.0); Mean Platelet Volume 9.6 fL (9.4-12.4); Monocytes Absolute Auto 0.4 X10*3/uL (0.1-1.2); Monocytes Percent Auto 9.6 % (2-11); Neutrophils Absolute Auto 3.2 x10*3/uL (2.0-8.3); Neutrophils Percent Auto 70.3 % (45-73); Platelet Count 171 X10*3/uL (160-400); Red Blood Count 5.38 X10*6/uL (4.60-5.80); Red Cell Distribution Width 13.7 % (11.0-16.0); White Blood Count 4.6 X10*3/uL (4.8-10.8)
[2024-06-02 10:46] LABS: Alanine Aminotransferase 57 U/L (0-40); Albumin Level 4.1 g/dL (3.5-5.0); Alkaline Phosphatase 96 U/L (39-117); Anion Gap 14 (12-20); Aspartate Amino Transferase 29 U/L (5-37); Bilirubin Direct 0.2 mg/dL (0.0-0.5); Bilirubin Total 0.6 mg/dL (0.0-1.0); Blood Urea Nitrogen 24 mg/dL (9-16); Calcium 9.7 mg/dL (8.4-10.2); Carbon Dioxide 25 mmol/L (22-29); Chloride 102 mmol/L (96-108); Estimated Glomerular Filt Rate > 60; Glucose Random 236 mg/dL (60-115); Potassium 4.3 mmol/L (3.3-5.1); Sodium 137 mmol/L (135-145)
[2024-06-02 11:13] LABS: Erythrocyte Sedimentation Rate 2 MM/HR (0-15)
== END 2024-06-02 08:49 | disposition home or self-care (01) ==
LOC: HO.LAB 08:48
PROVIDERS: PCP Nurse Practitioner Primary Care; Visit Provider Hospitalist
DX: J18.9 Pneumonia, unspecified organism (principal); J84.9 Interstitial pulmonary disease, unspecified; R91.8 Other nonspecific abnormal finding of lung field; J44.9 Chronic obstructive pulmonary disease, unspecified; D86.9 Sarcoidosis, unspecified; J45.20 Mild intermittent asthma, uncomplicated
CPT/HCPCS: 36415; 80048; 80076; 85025; 85652; 99212

== ENCOUNTER 2024-12-05 08:33 | Outpatient (REF) | payer MEDICARE, SELFPAY ==
--- OUTSIDE RECORDS SUMMARY | 2024-12-05 09:30 | XMS_ITS | Encounter Summary ---
Author Organization [facility] [place] [address] Care Team Providers Care Slide Fastener Chain Assembler Name Role Phone Adrienne Ortega NP Primary Care Provider [phone] Reason for Visit * Reason Onset Date Comments Med Refill 12/04/2024 Encounter Details Date Type Department Care Team (Late st Contact Info) Description 12/04/2024 Telephone Internal Medicine - [place] [address] [place] [address] Adrienne Ortega NP [address] [place] [address] Med Refill Social History Tobacco Use Types [...] PHARMACY: [id number] - [place], [place] - [address] [facility] 12[address] [facility] [address] [place], [place] - [address] [place] [phone] Patient would like script to be: E-PRESCRIBED/FAXED [...] Upcoming Encounters Date Type Department Care Team ([facility] st Contact Info) Description 01/18/2025 9:30 AM EDT Office Visit General Surgery - [place] 175 [facility] [address] [place] [address] Laith Raymond MD [address] [address] 05/08/2025 8:45 AM EDT [facility] [address] [facility] [place] [address] Adrienne Ortega NP [address] [place] [address] documented as of this encounter Visit Diagnoses Not on filedocumented in this encounter Care Teams Slide Fastener Chain Assembler Relationship Specialty Start Date End Date Adrienne Ortega NP 305 [facility] [place] [address] PCP - General Primary Care 06/09/24 documented as of this encounter
--- OUTSIDE RECORDS SUMMARY | 2024-12-05 09:30 | XMS_ITS | Encounter Summary ---
Author Organization [facility] Address [address] [place] [address] Care Team Providers Care Swager Operator Name Role Phone Adrienne Ortega NP Primary Care Provider [phone] Reason for Visit * Reason Onset Date Comments Prior Authorization 12/04/2024 Encounter Details Date Type Department Care Team (Late st Contact Info) Description 12/04/2024 Telephone Internal Medicine - [place] [address] [place] [address] Adrienne Ortega NP [address] [place] [address] Prior Authorization Social History Tobacco Use Types [...] My Meds request: Yes -- Davison Code [id number] Name of Medication blood sugar diagnostic (FreeStyle Lite Strips) test strip Dose of Medication What is the RX # from the faxed refill? How does patient take this med? 4x/day What Pharmacy [facility] the [facility]: [phone] Third [employer] Party Information from fax: What Prescription Plan does the patient have? BIN/PCN if applicable: Cardholder ID: Person Code: Relationship Code: Help desk phone: documented in this encounter Plan of Treatment Upcoming Encounters Date Type Department Care Team (Late st Contact Info) Description 01/18/2025 9:30 AM EDT Office Visit General Surgery - [place] [address] [address] Laith Raymond MD [address] [address] 05/08/2025 8:45 AM EDT [facility] [address] [place] [address] Adrienne Ortega NP [address] [place] [address] documented as of this encounter Visit Diagnoses Not on filedocumented in this encounter Care Teams Swager Operator Relationship Specialty Start Date End Date Adrienne Ortega NP [address] [place] [address] PCP - General Primary Care 06/09/24 documented as of this encounter
--- OUTSIDE RECORDS SUMMARY | 2024-12-05 09:30 | XMS_ITS | Clinical Summary ---
Author Organization 175 [facility] Address [address] [place] [address] Phone Care Team Providers Care Cane Feeder Name Role Phone Adrienne Ortega NP Primary Care Provider [phone] Allergies No known active allergies Medications glipiZIDE [...] and tried PT at outpt PT at [facility] with a little improvement. He [...] He had a C/S MRI 03/01/24 at [facility] that shows C6-7 degenerative disc [...] Cervical spondylosis 03/07/2024 Type 2 diabetes mellitus ([facility] V24, [facility] V 28) 10/26/2022 Type 2 diabetes mellitus ([facility] [place], [facility] V 28) 10/26/2022 Chronic obstructive pulmonar y disease ([facility] V24, [facility] V28) 04/01/2017 Lymphadenopathy 04/01/2017 Pulmonary sarcoidosis ([facility] V24) 04/01/2017 Syncope 04/01/2017 Chronic obstructive pulmonar y disease ([facility] V[facility], [facility] V28) 04/01/2017 Lymphadenopathy 04/01/2017 Pulmonary sarcoidosis ([facility] V24) 04/01/2017 Syncope 04/01/2017 Anxiety 02/10/2017 Gastroesophageal reflux disease 02/10/2017 Anxiety 02/10/2017 Gastroesophageal reflux disease 02/10/2017 Encounters Date Type Department Care Team Description 12/04/2024 Telephone Internal Medicine [address] [address] Adrienne Ortega NP Med Refill 12/04/2024 [place] [facility] [address] [address] Adrienne Ortega NP Prior Authorization 11/17/2024 [facility] [facility] [address] [address] Adrienne Ortega NP Lab Results 11/16/2024 [facility] [address] [address] Adrienne Ortega NP medication question 11/06/2024 9:30 AM EDT Office Visit Internal Medicine [address] [address] Adrienne Ortega NP Adult general medical examination (Primary Dx); Pulmonary emphysema, unspecified emphysema type ([facility] V[facility], [facility] V28); Pulmonary sarcoidosis ([facility] V[facility]); Type 2 diabetes mellitus without complication, without long-term current use of insulin ([facility] V24, [facility] V28); Anxiety; Gastroesophageal reflux disease without esophagitis; Screening for deficiency anemia; Screening for metabolic disorder; Encounter for lipid screening for cardiovascular disease; Screening for prostate cancer 10/18/2024 Telephone General Surgery [facility] 175 [facility] [address] [place] [address] Ally Manuel MA 10/16/2024 3:00 PM EDT Consult General Surgery [facility] 175 [facility] [address] [place] [address] Laith Raymond MD Anal pain; Ulcer of perianal area, limited to breakdown of skin ([facility] V24, [facility] V28) 09/22/2024 2:40 PM EST Office Visit Gastroenterology - [address] [facility] 299 [facility] [address] [place] [phone] Geovanni Craven PA Anal pain (Primary Dx); Ulcer of perianal area, limited to breakdown of skin ([facility] V24, [facility] V28) 09/19/2024 9:00 AM EST Office Visit Orthopedic Surgery [facility] [address] [facility] 160 [place] [address] Karla Samaniego MD Chronic right shoulder pain (Primary Dx) from Last 3 Months Immunizations Name Administration Dates Next Due Influenza Quadravalent, 0.5m l (Fluzone High-dose) 65yo and older 04/26/2024,05/21/2023 Influenza trivalent, 0.5mL (Fluad) 65yo and olde r 04/26/2024,05/21/2023 Influenza, Unspecified 04/10/2022,04/10/2022 [facility] SARS-CoV-2 COVID-19, mRNA, LNP-S, preservative free 04/09/2023,04/09/2023 [...] 02/10/2017 DX:Anxiety Chronic obstructive pulmonar y disease ([facility] V24, [facility] V28) 04/01/2017 DX:Chronic obstructive pulm onary disease (HCC) Gastroesophageal reflux disease 02/10/2017 DX:Gastroesophageal reflux disease Lymphadenopathy 04/01/2017 DX:Lymphadenopat hy Syncope 04/01/2017 DX:Syncope Pulmonary sarcoidosis ([facility] V24) 04/01/2017 DX:Pulmonary sarcoidosis (HCC) DM (diabetes mellitus) ([facility]/ [facility] V24, [facility] V28) DX:DM (diabetes mellitus) (H CC) Anal [...] AM EDT Office Visit General Surgery - [place] [address] [address] Laith Raymond MD [address] [address] 05/08/2025 8:45 AM EDT Office Visit Internal Medicine - [facility] [address] [place], [place] [phone] Adrienne Ortega, LICO [address] [place] [address] Health Maintenance Due Date Last Done Comments [...] complication, without long-term current use of insulin ([facility]/HCC V24, [facility] V28) HEMOGLOBIN A1C Routine 11/06/2024 10:21 AM [...] antigen screen (11/06/2024 10:21 AM EDT) Pathologist [facility] PSA 0.55 0.00 - 4.00 ng/mL LAB CHEMISTRY METHOD 11/06/2024 2:22 PM EDT [facility] Blood Venous blood specimen / Unknown Venipuncture / Unknown 11/06/2024 10:21 AM EDT 11/06/2024 10:21 AM EDT Narrative [facility] - 11/06/2024 2:22 PM EDT The Siemens Advia Lifecrowdaur Chemiluminescent Immunoassay is used. Results obtained with different assay methods or kits cannot be used interchangeably. Results cannot be interpreted as absolute evidence of the presence or absence of malignant disease. Adrienne Ortega NP LAB BLOOD ORDERABLES Final Resu lt [facility] [address] [place] [address], * (ABNORMAL) Lipid panel with reflex to direct LDL (11/06/2024 10:21 AM EDT) Cholesterol 164 0 - 200 mg/dL LAB CHEMISTRY METHOD 11/06/2024 1:39 PM EDT [facility] Triglycerides 341(H) 0 - 150 mg/dL LAB CHEMISTRY METHOD 11/06/2024 1:39 PM EDT [facility] HDL 33(L) >=40 mg/dL LAB CHEMISTRY METHOD 11/06/2024 1:39 PM EDT [facility] LDL Calculated 63 0 - 100 mg/dL LAB CHEMISTRY METHOD 11/06/2024 1:39 PM EDT [facility] VLDL Cholesterol Juan Antonio 68.2 mg/dL LAB CHEMISTRY METHOD 11/06/2024 1:39 PM EDT [facility] Non HDL Chol. (LDL+VLDL) 131 <145 mg/dL LAB CHEMISTRY METHOD 11/06/2024 1:39 PM EDT [facility] Chol/HDL Ratio 5.0(H) 0.0 - 4.4 LAB CHEMISTRY METHOD 11/06/2024 1:39 PM EDT [facility] Blood Venous blood specimen / Unknown Venipuncture / Unknown 11/06/2024 10:21 AM EDT 11/06/2024 10:21 AM EDT Adrienne Ortega NP LAB BLOOD ORDERABLES Final Resu lt Performing Organization Address City/[facility]/ZIP Co de Phone Number [facility] [address] [place] [address], [place] [phone] * Microalbumin creatinine urine ratio (11/06/2024 10:21 AM EDT) Creatinine, Urine 61.0 mg/dL LAB CHEMISTRY METHOD 11/06/2024 3:58 PM EDT [facility] Microalb, Ur 5.2 0.0 - 29.0 mg/L LAB CHEMISTRY METHOD 11/06/2024 3:58 PM EDT [facility] Microalb/Creat Ratio 9 <30 mg/g creat LAB CHEMISTRY METHOD 11/06/2024 3:58 PM EDT [facility] Urine Urine specimen obtained by clean catch procedure / Unknown Non-blood Collection / Unknown 11/06/2024 10:21 AM EDT 11/06/2024 10:21 AM EDT Adrienne Ortega NP LAB URINE ORDERABLES Final Resu lt Performing Organization Address [facility]/ZIP Co de Phone Number [facility] [address] [place] [address], [place] [phone] * (ABNORMAL) Complete blood count (11/06/2024 10:21 AM EDT) [facility] Signature WBC 4.7(L) 4.8 - 10.8 K/mcL LAB HEMETOLOGY METHOD [facility] RBC 5.60(H) 4.50 - 5.50 M/mcL LAB HEMETOLOGY METHOD 11/06/2024 2:27 PM EDT [facility] Hemoglobin 17.0 13.5 - 17.5 g/dL LAB HEMETOLOGY METHOD 11/06[facility]2024 2[facility] Hematocrit 50.6 42.0 - 54.0 % LAB HEMETOLOGY METHOD 11/06/2024 2:[facility] MCV 91.2 79.0 - 98.0 FL LAB HEMETOLOGY METHOD 11/06/2024 2:[facility] MCH 30.6 27.0 - 32.0 pcg LAB HEMETOLOGY METHOD 11/06/2024 2:[facility] MCHC 33.6 32.0 - 37.0 g/dL LAB HEMETOLOGY METHOD 11/06/2024 2:27 PM [facility] RDW 13.5 11.0 - 15.0 % LAB HEMETOLOGY METHOD 11/06/2024 2:27 PM [facility] Platelets 181 130 - 400 K/mcL LAB HEMETOLOGY METHOD 11/06/2024 2:[facility] MPV 10.2 7.0 - 11.0 FL LAB HEMETOLOGY METHOD 11/06/2024 2:[facility] NRBC 0.0 <1.0 % LAB HEMETOLOGY METHOD 11/06/2024 2:[facility] NRBC Absolute 0.00 <0.10 K/mcL LAB HEMETOLOGY METHOD 11/06/2024 2:27 PM EDT [facility] Blood Venous blood specimen / Unknown Venipuncture / Unknown 11/06/2024 10:21 AM EDT 11/06/2024 10:21 AM EDT Adrienne Ashtonti WEIGH BOX TENDER LAB BLOOD ORDERABLES Final Resu lt Performing Organization Address [facility]/ZIP Co de Phone Number [facility] [address] [place] [address], [place] [phone] * (ABNORMAL) Hemoglobin A1c (11/06/2024 10:21 AM EDT) Hemoglobin A1C 6.8(H) <6.5 % LAB CHEMISTRY METHOD 11/06/2024 2:11 PM EDT [facility] Mean Bld Glu Estim. 148 mg/dL LAB CHEMISTRY METHOD 11/06/2024 2:11 PM EDT [facility] Blood Venous blood specimen / Unknown Venipuncture / Unknown 11/06/2024 10:21 AM EDT 11/06/2024 10:21 AM EDT Adrienne Ortega NP LAB BLOOD ORDERABLES Final Resu lt Performing Organization Address [facility]/ZIP Co de Phone Number [facility] [address] [place] [address], [place] [phone] * (ABNORMAL) Comprehensive metabolic panel (11/06/2024 10:21 AM EDT) Sodium 134 133 - 145 mmol/L LAB CHEMISTRY METHOD 11/06/2024 1:39 PM EDT [facility] Potassium 4.0 3.5 - 5.5 mmol/L LAB CHEMISTRY METHOD 11/06/2024 1:39 PM EDT [facility] Chloride 100 96 - 110 mmol/L LAB CHEMISTRY METHOD 11/06/2024 1:39 PM EDT [facility] CO2 23 21 - 32 mmol/L LAB CHEMISTRY METHOD 11/06/2024 1:39 PM [facility] Anion Gap 11 3 - 11 LAB CHEMISTRY METHOD 11/06/2024 1:39 PM [facility] Glucose 128(H) 70 - 100 mg/dL LAB CHEMISTRY METHOD 11/06/2024 1:39 PM [facility] BUN 30(H) 5 - 25 mg/dL LAB CHEMISTRY METHOD 11/06/2024 1:39 PM [facility] Creatinine 0.76 0.70 - 1.30 mg/dL LAB CHEMISTRY METHOD 11/06/2024 1:39 PM [facility] eGFR 98 >=60 mL/min/1. 73m2 LAB CHEMISTRY METHOD 11/06/2024 1:39 PM [facility] Comment:Calculation based on the??Chronic Kidney Disease Epidemiology Collaboration (CKD-EPI) equation refit??without adjustment for race. BUN/Creatinine Ratio 39.5 LAB CHEMISTRY METHOD 11/06/2024 1:39 PM [facility] Calcium 9.1 8.5 - 10.5 mg/dL LAB CHEMISTRY METHOD 11/06/2024 1:39 PM [facility] AST (SGOT) 26 10 - 42 unit/L LAB CHEMISTRY METHOD 11/06/2024 1:39 PM [facility] ALT (SGPT) 52 10 - 60 unit/L LAB CHEMISTRY METHOD 11/06/2024 1:39 PM [facility] Alkaline Phosphatase 120 42 - 121 unit/L LAB CHEMISTRY METHOD 11/06/2024 1:39 PM [facility] Total Protein 7.1 6.0 - 8.0 g/dL LAB CHEMISTRY METHOD 11/06/2024 1:39 PM [facility] Albumin 4.0 3.2 - 5.0 g/dL LAB CHEMISTRY METHOD 11/06/2024 1:39 PM EDT [facility] Total Bilirubin 0.7 0.0 - 1.4 mg/dL LAB CHEMISTRY METHOD 11/06/2024 1:39 PM EDT [facility] Blood Venous blood specimen / Unknown Venipuncture / Unknown 11/06/2024 10:21 AM EDT 11/06/2024 10:21 AM EDT Adrienne Otrega WEIGH BOX TENDER LAB BLOOD ORDERABLES Final Resu lt [facility] [address] [place] [address], * Falls Risk Assessment (10/11/2023) [facility] Falls Risk Assessment Abstracted [facility] Provider HEALTH MAINTENANCE Final Result * Depression Screening (10/11/2023) [facility] Depression Screening Abstracted Historical Provider HEALTH MAINTENANCE Final Result * Diabetes Foot Exam (10/11/2023) [facility] Diabetes: Annual Foot Exam Abstracted Historical Provider HEALTH MAINTENANCE Final Result * Hepatitis C Screening (05/21/2023) [facility] Hepatitis C Screening negative Result [facility] Provider HEALTH MAINTENANCE Final Result * Colonoscopy (09/10/2021) [facility] Colonoscopy No Interpretation , Abstracted Anatomical Region Laterality Modality Other Historical Provider HEALTH MAINTENANCE Final Result from Last 3 Months or Most Recently Relevant to Health Maintenance Insurance [facility] MEDICAID ADVANTAGE [place] MED[place] ADVANTAGE Care Teams Cane Feeder Relationship Specialty Start Date End Date Adrienne Ortega NP [facility] [place] [address] PCP - General Primary Care 06/09/24
== END 2024-12-05 08:34 | disposition home or self-care (01) ==
LOC: HO.LAB 08:33
PROVIDERS: PCP Nurse Practitioner Primary Care; Visit Provider Hospitalist
DX: D86.9 Sarcoidosis, unspecified (principal); J84.9 Interstitial pulmonary disease, unspecified; J45.20 Mild intermittent asthma, uncomplicated; J98.4 Other disorders of lung; J18.9 Pneumonia, unspecified organism; R91.8 Other nonspecific abnormal finding of lung field
CPT/HCPCS: 99212

== ENCOUNTER 2024-12-05 08:33 | Outpatient (AMB) | payer MEDICARE, SELFPAY ==
[2024-12-05 08:36] VITALS: BP 110/68; PULSE 78; O2SAT 97; BMI 25.0
--- NOTE | 2024-12-05 08:36 | A.OFFVIS_ITS ---
Vital Signs 12/05/24 08:36 Height 5 ft 10 in Weight 174 lb 2.643 oz BMI 25.0 BP 110/68 Blood Pressure Location Rt brachial Position Sitting Pulse 78 Pulse Source Pulse Oximeter Pulse Oximetry (%) 97 Oxygen Delivery Method Room Air Intake Visit Reasons: Sarcoidosis Allergies No Known Allergies Allergy (Verified 12/05/24 08:39) HPI Comments Details: The patient is a 68-year-old gentleman with a known history of sarcoidosis in addition to asthma. Patient may indeed have some endobronchial sarcoid involvement. He had been doing very well intermittently on Breo. More recently in the end of July early August he started developing symptoms consistent with a viral syndrome. He developed worsening respiratory symptoms and was treated by his primary care doctor. Still, he feels like his respiratory symptoms have not recovered 100%. Sometimes he developed episodes of not been able to breathe well. He did try Advair but was not very effective. He was concerned the Breo is more money more expenses. Although he has noticed that works better. He also did have a chest x-ray at [facility] back in September of this year that we personally reviewed demonstrating interval decrease in the hilar lymphadenopathy. Otherwise, no acute disease. His last CT scan of the chest was at [facility] back in 2018. 02/27/2022 the patient is here for a pulmonary follow-up visit. Overall the patient has been doing relatively well. He still has an intermittent cough. Although denies any shortness breath or Any discomfort. He did undergo a CT scan of the chest at [facility]. That was compared to a CT scan he had back in 2018. It appears that he had interval worsening the airspace disease bilaterally in addition to new pulmonary nodules measuring up to 7 mm in size. The ground-glass opacities areas vary between 2 and 4 cm in size. I did compare his CT scan results from [facility] to his last CT scan that he had back in 2020. It appeared that the nodules are relatively stable. Although the areas of airspace disease appeared to be slightly bigger in size. In view of the worsening disease I did talk to the patient about considering treating him with small dose of prednisone to see if we leave the 8 the pulmonary nodules in the airspace disease. And therefore will have a short interval before repeating the CT scan of 3 months to see if the therapy was effective. The patient stands that although this is likely all sarcoid in his lungs we cannot rule out a secondary concomitant medical issues including cancer. 05/25/2022 the patient is here for a pulmonary follow-up visit. Overall he has been feeling better while on the prednisone. Denies any significant shortness of breath or cough. However, the prednisone has resulted on significantly elevated blood sugars and hemoglobin A1c. His diabetes medication for indeed increased. However, still very uncontrolled. He did have a repeat CT scan of the chest done at [facility] demonstrating some improvement some of the parenchymal disease and also some stability. No evidence of any worsening or new nodules which is reassuring. We talked about using immunomodulators to treat his underlying sarcoidosis try to minimize the prednisone adverse effects. The patient is agreeable to this. Talked about different immunomodulators including mycophenolate and methotrexate. Will go ahead and start him on mycophenolate small dose to titrate up in addition to that will have blood work to make sure that he is tolerating the medication. 08/24/2022 the patient is here for a pulmonary follow-up visit. The patient has been responding well to the CellCept. His sugars are now normalized. He has not had any adverse effects from the medication. He is taking 500 mg twice a day. Explained to him that this is a very low dose and is reassuring. From a respiratory status he feels well he denies any significant coughing or shortness of breath. He denies any significant wheezing. Overall he feels like he is responding positively to the medication. His blood work needs to be updated. The patient understands that this medication has potential side effects and he needs to undergo blood work to make sure. The patient has been describing some epigastric discomfort. He is following closely with his GI doctor. Recently had a barium swallow and will follow-up with those results. At this point I doubt that the epigastric discomfort is related to the CellCept but will go ahead and also request additional blood work just to work it up some. His last CT scan was back in May 2022. Will continue to treat him monitor him. As long as he is doing okay will hold off till May [address] scan. If at any point he develops worsening symptoms we may have to consider getting a CT scan sooner. 12/22/2022 the patient is here for pulmonary follow-up visit. He is tolerating the CellCept well. His respiratory symptoms have improved. Denies any wheezing or coughing or shortness of breath. He has been able to work more regularly without being breathless. He feels like is a good medication for him. In the meantime he did follow-up with GI doctor. Is found to have reflux disease and was placed on a PPI. Seems like the GI symptoms are better at this time. Is also good that he is off the prednisone and likely contributing to those discomforts. The patient's sugars also coming down in his hemoglobin A1c is normalizing which is happy about. Based on the fact that he is doing well will continue with current respiratory regimen. Will continue the with current CellCept dose. The patient will need to get blood work over the summer. Will plan to repeat his CT scan at [facility] sometime in May 2023 to follow-up with the interstitial lung changes in the pulmonary nodules. 05/18/2023 the patient is here for a pulmonary follow-up visit. Overall he con tinues to do well. Continues to tolerate the CellCept. His cough is better and breathlessness as well. No GI side effects at this time. The patient did undergo a CT scan of the chest that was personally by me. Unfortunately he does have some interval increase areas of ground-glass opacities and nodular densities. Therefore I suggested that we increase the CellCept further in a stepwise pattern up to 2 g a day. Once he reaches that therapeutic dose will go ahead and request blood work to make sure that his liver function studies and chemistries and CBC are still within normal limits. 12/03/2023 the patient is here for pulmonary follow-up. The patient states that several months ago he was started developing increasing shortness of breath. He could not explain the symptoms. Dyspnea on exertion moderate severity. He went to primary care doctor. He did have an EKG demonstrating sinus arrhythmia. In addition to that he was not provided any other therapies that he is aware of. He did undergo an echocardiogram. The patient states that he did have a stress test in the past but many years ago. In addition to that he has been on the higher dose CellCept 2 g a day. He did have blood work number which was reassuring and also had blood work with his primary care doctor. We did look at the last CT scan that he had back in a log roper 2022 demonstrating interval worsening of the interstitial lung disease and does want increase the CellCept to the current dose. Therefore request a chest x-ray. His respiratory exam is fairly stable and does feel better so therefore I do not think moving up the CT scan will be necessary at this time. If the x-ray is abnormal then will get a CT scan earlier time. Will also repeat the EKG. The patient may benefit from a cardiac stress if he continues have symptoms. 06/02/2024 the patient is here for a pulmonary follow-up visit. The patient overall has been doing well. He continues on the CellCept 2 g a day. The patient is tolerating the medicine well. He did have a recent CT scan of the chest at [facility]. It appears that his interstitial lung disease stable on the current dose. He is asking about when he can come off the medicine. At this point he appears to have progressive disease and therefore will keep him on the current dose. But, in the future should look to try to deescalate therapy. For now having some neck and shoulder issues. He may need surgery. So therefore keep him on the current dose. He has his CT scan showed a slightly large liver. Will have him get blood work today. 12/05/2024 the patient is here for pulmonary follow-up visit. Overall he is doing very well. His walking regularly. He denies any respiratory limitations. Denies any coughing or chest pain. He has been taking the mycophenolate 2 g a day. He has been tolerating medicine well without any adverse effects. Although he has not gotten the blood work. He is going to get it today. In the essence of having stability in the CAT scan the last CAT scan back in the fall and the fact that he is doing well from a respiratory status his respiratory exam is also reassuring will go ahead and start decreasing the mycophenolate by 500 mg every 6-8 weeks until his on 1 g a day. The patient will then have a repeat CT scan of the chest and follow-up to see if he is tolerating the medicine. I am hopeful that his CT scan continues to be stable in order for us to continue to decrease the medication effectively. [facility] Medical History (Updated 08/24/22 @ 10:40 by Johan Emmanuel MD) Pulmonary nodules ILD (interstitial lung disease) Asthma Chronic restrictive lung disease Sarcoidosis Social History Patient Tobacco Use Status: Never used Tobacco Review of Systems Const Denies night sweats ENT Denies change in voice, Denies lip swelling, Denies mouth pain, Reports nasal congestion, Reports nasal discharge, Denies neck pain and Denies tongue swelling Card Denies chest pain Resp Denies cough GI Denies abdominal pain and Denies belching Musc Denies neck pain Neuro Denies Neuro-related abnormal movements Psych Denies no additional complaints Tayo/Lymph Denies easy bleeding and Denies lymphadenopathy Aller/Immun Denies lip swelling and Denies tongue swelling Physical Exam Vital Signs: Last Vital Signs Pulse 78 12/05/24 08:36 BP 110/68 12/05/24 08:36 Pulse Ox 97 12/05/24 08:36 Oxygen Delivery Method Room Air 12/05/24 08:36 BMI result Body Mass Index 25.0 Const General: alert Neck Neck: Yes normal visual inspection, Yes full ROM and Yes no lymphadenopathy Chest Chest palpation & inspection: normal inspection of the chest Resp Effort & Inspection: normal respiratory effort Auscultation: diminished lung sounds Cardio Rate: regular rate Rhythm: regular rhythm Heart sounds: S1 normal heart sound present and S2 normal heart sound present GI Palpation (GI): Soft to palpation and nontender Auscultation: normal bowel sounds Skin General skin exam: rashes and/or lesions noted Assessment & Plan Assessment & Plan (1) Sarcoidosis: Code(s): D86.9 - Sarcoidosis, unspecified Category: Medical (2) ILD (interstitial lung disease): Code(s): J84.9 - Interstitial pulmonary disease, unspecified Category: Medical (3) Asthma: Code(s): J45.909 - Unspecified asthma, uncomplicated Category: Medical Qualifiers: Asthma complication type: uncomplicated Asthma persistence: intermittent Asthma severity: mild Qualified Code(s): J45.20 - Mild intermittent asthma, uncomplicated (4) Chronic restrictive lung disease: Code(s): J98.4 - Other disorders of lung Category: Medical (5) Pneumonitis: Code(s): J18.9 - Pneumonia, unspecified organism Category: Medical (6) Pulmonary nodules: Code(s): R91.8 - Other nonspecific abnormal finding of lung field Category: Medical Plan decrease Mycophenalate 1000mg BID-->500mg BID bloodwork CT chest in 4-5 months (pt prefers [facility]) PETER as needed F/U 5-6 months Orders: Orders CT chest wo IV con 5 Months J18.9 - Pneumonia, unspecified organism, J84.9 - Interstitial pulmonary disease, unspecified, J98.4 - Other disorders of lung, R91.8 - Other nonspecific abnormal finding of lung field Coding Level of Care Code Est Pt Level 4 (96020) Complex EM visit Add On G2211 Diagnoses Sarcoidosis D86.9 ILD (interstitial lung disease) J84.9 Mild intermittent asthma without complication J45.20 Asthma complication type: uncomplicated Asthma persistence: intermittent Asthma severity: mild Chronic restrictive lung disease J98.4 Pneumonitis J18.9 Pulmonary nodules R91.8 Time Spent (min) 17
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
--- OUTSIDE RECORDS SUMMARY | 2024-12-05 08:55 | XMS_ITS | Encounter Summary ---
Author Organization [facility] [place] [address] Care Team Providers Care Energy Consultant Name Role Phone Adrienne Ortega NP Primary Care Provider [phone] Reason for Visit * Reason Onset Date Comments Med Refill 12/04/2024 Encounter Details Date Type Department Care Team (Late st Contact Info) Description 12/04/2024 Telephone Internal Medicine - [place] [address] [place] [address] Adrienne Ortega NP [address] [place] [address] Med Refill Social History Tobacco Use Types Packs/Day Years Used Date Smoking Tobacco: Former Cigarettes Q uit: 08/09/1982 Alcohol Use Standard Drinks/Week Comments Not Currently 0 (1 standard drink = 0.6 oz pur e alcohol) Sex and Gender Information Value Date Recorded Sex Assigned at Not on file Legal Sex Male 12:49 PM EST Gender Identity Not on file Sexual Orientation Not on file documented as of this encounter Progress Notes * Ilda Munoz MA - 12/04/2024 4:02 PM EDT Reordered today by Dr Kenyon * Payton Chavez - 12/04/2024 3:58 PM EDT Refills on Current Medication List MED NAME: omeprazole PREFERRED PHARMACY: [id number] - [place], [place] - [address] [facility] [address] [facility] [address] [place], [place] - [address] [place] [phone] Patient would like script to be: E-PRESCRIBED/FAXED TO PHARMACY OK FOR NEXT DAY WHEN WAS THE PATIENT'S LAST APPOINTMENT IN ADULT MEDICINE? 11/06/24 WHEN WAS THE LAST TIME THE PATIENT SAW THEIR PCP? Same as above Does patient have an upcoming appointment? Yes 05/08/25 (THE MEDICATION REQUESTED IS ON THE MED LIST ABOVE) All of the medications requested were on the CURRENT MEDS list Did you check the Pharmacy information above?: yes Patient wants: 30-day supply Is this a mail order prescription request?: no If the refill is from a FAXED refill request what is the RX # listed on the fax? not applicable Patients current insurance carrier is: Payor: [employer] / Plan: [employer]AGE / Product Type: *No Product type* / Insurance ID #: @[id number]@ documented in this encounter Plan of Treatment Upcoming Encounters Date Type Department Care Team ([facility] st Contact Info) Description 01/18/2025 9:30 AM EDT Office Visit General Surgery - [place] 175 [facility] [address] [place] [address] Laith Raymond MD [address] [address] 05/08/2025 8:45 AM EDT [facility] [address] [facility] [place] [address] Adrienne Ortega NP [address] [place] [address] documented as of this encounter Visit Diagnoses Not on filedocumented in this encounter Care Teams Energy Consultant Relationship Specialty Start Date End Date Adrienne Ortega NP [address] [facility] [place] [address] PCP - General Primary Care 06/09/24 documented as of this encounter
--- OUTSIDE RECORDS SUMMARY | 2024-12-05 08:55 | XMS_ITS | Encounter Summary ---
Author Organization [facility] Address [address] [place] [address] Care Team Providers Care Aquaculturist Name Role Phone Adrienne Ortega NP Primary Care Provider [phone] Reason for Visit * Reason Onset Date Comments Prior Authorization 12/04/2024 Encounter Details Date Type Department Care Team (Late st Contact Info) Description 12/04/2024 Telephone Internal Medicine - [place] [address] [place] [address] Adrienne Ortega NP [address] [place] [address] Prior Authorization Social History Tobacco Use Types Packs/Day Years [...] as of this encounter Progress Notes * Raissa Kamara - 12/04/2024 1:44 PM EDT Prior Authorization for Medication-do not complete and send this encounter unless you have the fax from the pharmacy. Is this a Cover My Meds request: Yes -- Davison Code [id number] Name of Medication blood sugar diagnostic (FreeStyle Lite Strips) test strip Dose of Medication What is the RX # from the faxed refill? How does patient take this med? 4x/day What Pharmacy [facility] the [facility]: [phone] Third [employer] Information from fax: What Prescription Plan does the patient have? BIN/PCN if applicable: Cardholder ID: Person Code: Relationship Code: Help desk phone: documented in this encounter Plan of Treatment Upcoming Encounters Date Type Department Care Team (Late st Contact Info) Description 01/18/2025 9:30 AM EDT Office Visit General Surgery - [place] [address] [address] Laith Raymond MD [address] [address] 05/08/2025 8:45 AM EDT [facility] [address] [place] [address] Adrienne Ortega NP [address] [place] [address] documented as of this encounter Visit Diagnoses Not on filedocumented in this encounter Care Teams Aquaculturist Relationship Specialty Start Date End Date Adrienne Ortega NP [address] [place] [address] PCP - General Primary Care 06/09/24 documented as of this encounter
== END 2024-12-05 08:51 | disposition home or self-care (01) ==
PROVIDERS: PCP Nurse Practitioner Primary Care; Visit Provider Hospitalist
DX: D86.9 Sarcoidosis, unspecified (principal); J84.9 Interstitial pulmonary disease, unspecified; J45.20 Mild intermittent asthma, uncomplicated; J98.4 Other disorders of lung
CPT/HCPCS: 99214; G2211

== ENCOUNTER 2025-04-24 08:15 | Outpatient (AMB) | payer MEDICARE, SELFPAY ==
[2025-04-24 08:18] VITALS: BP 128/60; PULSE 85; O2SAT 96; BMI 25.5
--- NOTE | 2025-04-24 08:18 | A.OFFVIS_ITS ---
Vital Signs 04/24/25 08:18 Height 5 ft 10 in Weight 177 lb 7.554 oz BMI 25.5 BP 128/60 Blood Pressure Location Lt brachial Position Sitting Pulse 85 Pulse Source Pulse Oximeter Pulse Oximetry (%) 96 Oxygen Delivery Method Room Air Intake Visit Reasons: Sarcoidosis Head Esthetician Required: No Accompanied by: Self / Same As Patient Allergies No Known Allergies Allergy (Verified 04/24/25 08:20) HPI Comments Details: The patient is a 68-year-old gentleman with a known history of sarcoidosis in addition to asthma. Patient may indeed have some endobronchial sarcoid involvement. He had been doing very well intermittently on Breo. More recently in the end of July early August he started developing symptoms consistent with a viral syndrome. He developed worsening respiratory symptoms and was treated by his primary care doctor. Still, he feels like his respiratory sy mptoms have not recovered 100%. Sometimes he developed episodes of not been able to breathe well. He did try Advair but was not very effective. He was concerned the Breo is more money more expenses. Although he has noticed that works better. He also did have a chest x-ray at [facility] back in September of this year that we personally reviewed demonstrating interval decrease in the hilar lymphadenopathy. Otherwise, no acute disease. His last CT scan of the chest was at [facility] back in 2017. 02/27/2022 the patient is here for a pulmonary follow-up visit. Overall the patient has been doing relatively well. He still has an intermittent cough. Although denies any shortness breath or Any discomfort. He did undergo a CT scan of the chest at [facility]. That was compared to a CT scan he had back in 2017. It appears that he had interval worsening the airspace disease bilaterally in addition to new pulmonary nodules measuring up to 7 mm in size. The ground-glass opacities areas vary between 2 and 4 cm in size. I did compare his CT scan results from [facility] to his last CT scan that he had back in 2020. It appeared that the nodules are relatively stable. Although the areas of airspace disease appeared to be slightly bigger in size. In view of the worsening disease I did talk to the patient about considering treating him with small dose of prednisone to see if we leave the 8 the pulmonary nodules in the airspace disease. And therefore will have a short interval before repeating the CT scan of 3 months to see if the therapy was effective. The patient stands that although this is likely all sarcoid in his lungs we cannot rule out a secondary concomitant medical issues including cancer. 05/25/2022 the patient is here for a pulmonary follow-up visit. Overall he has been feeling better while on the prednisone. Denies any significant shortness of breath or cough. However, the prednisone has resulted on significantly elevated blood sugars and hemoglobin A1c. His diabetes medication for indeed increased. However, still very uncontrolled. He did have a repeat CT scan of the chest done at [facility] demonstrating some improvement some of the parenchymal disease and also some stability. No evidence of any worsening or new nodules which is reassuring. We talked about using immunomodulators to treat his underlying sarcoidosis try to minimize the prednisone adverse effects. The patient is agreeable to this. Talked about different immunomodulators including mycophenolate and methotrexate. Will go ahead and start him on mycophenolate small dose to titrate up in addition to that will have blood work to make sure that he is tolerating the medication. 08/24/2022 the patient is here for a pulmonary follow-up visit. The patient has been responding well to the CellCept. His sugars are now normalized. He has not had any adverse effects from the medication. He is taking 500 mg twice a day. Explained to him that this is a very low dose and is reassuring. From a respiratory status he feels well he denies any significant coughing or shortness of breath. He denies any significant wheezing. Overall he feels like he is responding positively to the medication. His blood work needs to be updated. The patient understands that this medication has potential side effects and he needs to undergo blood work to make sure. The patient has been describing some epigastric discomfort. He is following closely with his GI doctor. Recently had a barium swallow and will follow-up with those results. At this point I doubt that the epigastric discomfort is related to the CellCept but will go ahead and also request additional blood work just to work it up some. His last CT scan was back in May 2022. Will continue to treat him monitor him. As long as he is doing okay will hold off till May [address] scan. If at any point he develops worsening symptoms we may have to consider getting a CT scan sooner. 12/22/2022 the patient is here for pulmonary follow-up visit. He is tolerating the CellCept well. His respiratory symptoms have improved. Denies any wheezing or coughing or shortness of breath. He has been able to work more regularly without being breathless. He feels like is a good medication for him. In the meantime he did follow-up with GI doctor. Is found to have reflux disease and was placed on a PPI. Seems like the GI symptoms are better at this time. Is also good that he is off the prednisone and likely contributing to those discomforts. The patient's sugars also coming down in his hemoglobin A1c is normalizing which is happy about. Based on the fact that he is doing well will continue with current respiratory regimen. Will continue the with current CellCept dose. The patient will need to get blood work over the summer. Will plan to repeat his CT scan at [facility] sometime in May 2023 to follow-up with the interstitial lung changes in the pulmonary nodules. 05/18/2023 the patient is here for a pulmonary follow-up visit. Overall he continues to do well. Continues to tolerate the CellCept. His cough is better and breathlessness as well. No GI side effects at this time. The patient did undergo a CT scan of the chest that was personally by me. Unfortunately he does have some interval increase areas of ground-glass opacities and nodular densities. Therefore I suggested that we increase the CellCept further in a stepwise pattern up to 2 g a day. Once he reaches that therapeutic dose will go ahead and request blood work to make sure that his liver function studies and chemistries and CBC are still within normal limits. 12/03/2023 the patient is here for pulmonary follow-up. The patient states that several months ago he was started developing increasing shortness of breath. He could not explain the symptoms. Dyspnea on exertion moderate severity. He went to primary care doctor. He did have an EKG demonstrating sinus arrhythmia. In addition to that he was not provided any other therapies that he is aware of. He did undergo an echocardiogram. The patient states that he did have a stress test in the past but many years ago. In addition to that he has been on the higher dose CellCept 2 g a day. He did have blood work number which was reassuring and also had blood work with his primary care doctor. 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 Therefore request a chest x-ray. His respiratory exam is fairly stable and does feel better so therefore I do not think moving up the CT scan will be necessary at this time. If the x-ray is abnormal then will get a CT scan earlier time. Will also repeat the EKG. The patient may benefit from a cardiac stress if he continues have symptoms. 06/02/2024 the patient is here for a pulmonary follow-up visit. The patient overall has been doing well. He continues on the CellCept 2 g a day. The patient is tolerating the medicine well. He did have a recent CT scan of the chest at [facility]. It appears that his interstitial lung disease stable on the current dose. He is asking about when he can come off the medicine. At this point he appears to have progressive disease and therefore will keep him on the current dose. But, in the future should look to try to deescalate therapy. For now having some neck and shoulder issues. He may need surgery. So therefore keep him on the current dose. He has his CT scan showed a slightly large liver. Will have him get blood work today. 12/05/2024 the patient is here for pulmonary follow-up visit. Overall he is doing very well. His walking regularly. He denies any respiratory limitations. Denies any coughing or chest pain. He has been taking the mycophenolate 2 g a day. He has been tolerating medicine well without any adverse effects. Although he has not gotten the blood work. He is going to get it today. In the essence of having stability in the CAT scan the last CAT scan back in the fall and the fact that he is doing well from a respiratory status his respiratory exam is also reassuring will go ahead and start decreasing the mycophenolate by 500 mg every 6-8 weeks until his on 1 g a day. The patient will then have a repeat CT scan of the chest and follow-up to see if he is tolerating the medicine. I am hopeful that his CT scan continues to be stable in order for us to continue to decrease the medication effectively. 04/24/2025 the patient is here for pulmonary follow-up visit. Overall he is feeling okay. Does complaint of increasing slight dyspnea on exertion. Is also some heaviness of the chest. The last time we spoke back in November with the patient has been doing well in his imaging studies have been stable altogether. We had decrease the mycophenolate with the plans a repeating the CAT scan. To see if he can tolerate less medicine. However, prior to that the patient had a fall and subsequently had a chest x-ray that was considered abnormal. This was not an urgent care. Then he had the scheduled CAT scan. I did get the copies and I did personally review the CAT scan. There sleep appears to be interval worsening of the airspace disease now more bilateral progressive. Appears to be more consistent with progression of the sarcoidosis. Therefore explained to the patient that he does need the higher dose medication. Will plan to give him some steroids as well increase the mycophenolate to 2 g twice a day. Will plan to repeat a CAT scan in couple months and make sure that there is interval improvement of the airspace disease. If he continues to have abnormal findings will have to re-evaluate and consider further diagnostic interventions. But overall he is doing okay. Will go ahead and add additional medication and follow-up after the CAT scan. If he has any issues prior to this he will call for an earlier assessment. REPLACED BY [facility] Medical History (Updated 08/24/22 @ 10:40 by Johan Emmanuel MD) Pulmonary nodules ILD (interstitial lung disease) Asthma Chronic restrictive lung disease Sarcoidosis Social History Patient Tobacco Use Status: Never used Tobacco Review of Systems Const Denies night sweats Eyes Reports no additional complaints ENT Denies change in voice, Denies lip swelling, Denies mouth pain, Reports nasal congestion, Reports nasal discharge, Denies neck pain and Denies tongue swelling Card Denies chest pain and Reports dyspnea on exertion Resp Denies cough and Reports dyspnea on exertion GI Denies abdominal pain and Denies belching Musc Denies neck pain Neuro Denies Neuro-related abnormal movements Psych Denies no additional complaints Tayo/Lymph Denies easy bleeding and Denies lymphadenopathy Aller/Immun Denies lip swelling and Denies tongue swelling Physical Exam Vital Signs: Last Vital Signs Pulse 85 04/24/25 08:18 BP 128/60 04/24/25 08:18 Pulse Ox 96 04/24/25 08:18 Oxygen Delivery Method Room Air 04/24/25 08:18 BMI result Body Mass Index 25.5 Const General: alert Neck Neck: Yes normal visual inspection, Yes full ROM and Yes no lymphadenopathy Chest Chest palpation & inspection: normal inspection of the chest Resp Effort & Inspection: normal respiratory effort Auscultation: diminished lung sounds Cardio Rate: regular rate Rhythm: regular rhythm Heart sounds: S1 normal heart sound present and S2 normal heart sound present GI Palpation (GI): Soft to palpation and nontender Auscultation: normal bowel sounds Skin General skin exam: rashes and/or lesions noted Assessment & Plan Assessment & Plan (1) Sarcoidosis: Code(s): D86.9 - Sarcoidosis, unspecified Category: Medical (2) ILD (interstitial lung disease): Code(s): J84.9 - Interstitial pulmonary disease, unspecified Category: Medical (3) Asthma: Code(s): J45.909 - Unspecified asthma, uncomplicated Category: Medical Qualifiers: Asthma complication type: uncomplicated Asthma persistence: intermittent Asthma severity: mild Qualified Code(s): J45.20 - Mild intermittent asthma, uncomplicated (4) Chronic restrictive lung disease: Code(s): J98.4 - Other disorders of lung Category: Medical (5) Pneumonitis: Code(s): J18.9 - Pneumonia, unspecified organism Category: Medical (6) Pulmonary nodules: Code(s): R91.8 - Other nonspecific abnormal finding of lung field Category: Medical Plan Increased Mycophenalate 500mg BID->1000mg BID start Prednisone taper CT chest in 2 months (pt prefers [facility]) PFTs Bloodwork PETER as needed F/U 2-3 months, call if worsens Orders: Orders Complete Blood Count Auto Diff Today D86.9 - Sarcoidosis, unspecified, J18.9 - Pneumonia, unspecified organism, J84.9 - Interstitial pulmonary disease, unspecified Liver Panel Today D86.9 - Sarcoidosis, unspecified, J18.9 - Pneumonia, unspecified organism, J84.9 - Interstitial pulmonary disease, unspecified Angiotensin Converting Enzyme Today D86.9 - Sarcoidosis, unspecified, J18.9 - Pneumonia, unspecified organism, J84.9 - Interstitial pulmonary disease, unspecified Erythrocyte Sedimentation Rate Today D86.9 - Sarcoidosis, unspecified, J18.9 - Pneumonia, unspecified organism, J84.9 - Interstitial pulmonary disease, unspecified Immunoglobulins,IgG IgA IgM Today D86.9 - Sarcoidosis, unspecified, J18.9 - Pneumonia, unspecified organism, J84.9 - Interstitial pulmonary disease, unspecified Immunoglobulin E Today D86.9 - Sarcoidosis, unspecified, J18.9 - Pneumonia, unspecified organism, J84.9 - Interstitial pulmonary disease, unspecified CT chest wo IV con 10 Weeks D86.9 - Sarcoidosis, unspecified, J18.9 - Pneumonia, unspecified organism, J84.9 - Interstitial pulmonary disease, unspecified Venous Blood Gas Today D86.9 - Sarcoidosis, unspecified, J18.9 - Pneumonia, unspecified organism, J84.9 - Interstitial pulmonary disease, unspecified Basic Metabolic Panel Today D86.9 - Sarcoidosis, unspecified, J18.9 - Pneu monia, unspecified organism, J84.9 - Interstitial pulmonary disease, unspecified PFT pulmonary function test Today D86.9 - Sarcoidosis, unspecified, J18.9 - Pneumonia, unspecified organism, J84.9 - Interstitial pulmonary disease, unspecified Medications: New prednisone take 2 tablets daily x 10 days, then 1 tab daily x 10 days 30 tabs 0RF 20 days Refilled mycophenolate mofetil 1,000 mg (2 x 500 mg) PO BID 120 tabs 11RF 30 days Coding Level of Care Code Est Pt Level 5 (18383) Complex EM visit Add On G2211 Diagnoses Sarcoidosis D86.9 ILD (interstitial lung disease) J84.9 Mild intermittent asthma without complication J45.20 Asthma complication type: uncomplicated Asthma persistence: intermittent Asthma severity: mild Chronic restrictive lung disease J98.4 Pneumonitis J18.9 Pulmonary nodules R91.8 Time Spent (min) 30
--- OUTSIDE RECORDS SUMMARY | 2025-04-24 09:32 | XMS_ITS ---
Author Name [facility] Organization Unknown Care Team Organization Name Specialty Phone Email Start Date End Da te [facility] Adrienne Ortega Primary Care 01/15/20232023
--- OUTSIDE RECORDS SUMMARY | 2025-04-24 09:32 | XMS_ITS | Clinical Summary ---
Author Organization [facility] Address [address] [place] [address] Phone Care Team Providers Care Head Up Operator Helper Name Role Phone Adrienne Ortega NP Primary Care Provider [phone] Allergies No known active allergies Medications aspirin 81 mg EC tablet Take 1 tablet (81 mg total) by mouth. Active multivit-min/ir on/folic acid/K (ADULTS MULTIVITAMIN ORAL) Take by mouth. Activ e NIFEdipine (bulk) in white petrolatum ointment Apply 1 Application topically 3 (three) times a day. Apply a pea-sized amount of 0.2% nifedipine ointment to perianal region 3 times a day for treatment of anal fissures 90 g 1 10/19/19 25 026 Active empagliflozin (JARDIANCE) 25 mg tablet Take 1 tablet (25 mg total) by mouth 1 (one) time each day in the morning. Take 1 Tablet by mouth daily. 90 tablet 1 11/07/19 25 025 Active mycophenolate (CELLCEPT) 500 mg tabletIndicatio ns:Pulmonary sarcoidosis (CMS/HCC V24) Take 1 tablet (500 mg total) by mouth 2 (two) times a day. Take 1 Tablet by mouth 2 times daily. 60 each 5 11/07/19 25 025 Active fenofibrate (TRICOR) 145 mg tablet Take 1 tablet (145 mg total) by mouth 1 (one) time each day. 30 each 5 11/18/19 25 025 Active glipiZIDE (GLUCOTROL XL) 10 mg 24 hr tablet TAKE ONE TABLET BY MOUTH TWICE A DAY 180 tablet 1 12/06/19 25 Active blood sugar diagnostic (FreeStyle Lite Strips) test strip Use as instructed to monitor blood sugar up to 3 times per day 200 each 1 12/23/19 25 Active ALPRAZolam (XANAX) 0.25 mg tablet Take 1 tablet (0.25 mg total) by mouth 1 (one) time each day if needed for anxiety. Max Daily Amount: 0.25 mg 12 tablet 02/06/20 25 Active losartan (COZAAR) 25 mg tablet TAKE ONE TABLET BY MOUTH EVERY DAY 90 tablet 1 04/23/20 25 Active losartan (COZAAR) 25 mg tablet TAKE ONE TABLET BY MOUTH EVERY DAY 90 tablet 1 10/21/19 25 025 Discontinued Active Problems Problem Noted Date Diagnosed Date Nontraumatic complete tear of right rotator cuff 03/30/2025 Right shoulder pain 06/02/2024 Cervical spondylosis 03/07/2024 [...] and tried PT at outpt PT at [facility] with a little improvement. He does not [...] He had a C/S MRI 03/01/24 at [facility] that shows C6-7 degenerative disc disease and [...] Cervical spondylosis 03/07/2024 Type 2 diabetes mellitus ([facility] V24, [facility] V 28) 10/26/2022 Type 2 diabetes mellitus ([facility] V24, [facility] V 28) 10/26/2022 Chronic obstructive pulmonar y disease ([facility] V24, [facility] V28) 04/01/2017 Lymphadenopathy 04/01/2017 Pulmonary sarcoidosis (CMS/HCC V24) 04/01/2017 Syncope 04/01/2017 Chronic obstructive pulmonar y disease ([facility] V24, [facility] V28) 04/01/2017 Lymphadenopathy 04/01/2017 Pulmonary sarcoidosis ([facility] V24) 04/01/2017 Syncope 04/01/2017 Anxiety 02/10/2017 Gastroesophageal reflux disease 02/10/2017 Anxiety 02/10/2017 Gastroesophageal reflux disease 02/10/2017 Encounters Date Type Department Care Team Description 04/02/[address] [facility] [address] [facility] [address] [place] [phone] Aleisha Johansen MA 03/30/2025 9:30 AM EDT Consult Orthopedic Surgery [facility] 160 [address] [facility] [address] [place] [phone] Reginaldo Escobedo MD Chronic right shoulder pain (Primary Dx); Nontraumatic complete tear of right rotator cuff 03/28/2025 3:18 PM EDT - 03/28/2025 11:59 PM EDT Hospital Encounter [facility] CT Scan [address] [place] [phone] Other nonspecific abnormal finding of lung field; Pneumonia, unspecified organism; Interstitial pulmonary disease, unspecified ([facility] V24, [facility] V28); Other disorders of lung Discharge Disposition: Home or Self Care 03/13/2025 3:47 PM EDT - 03/13/2025 11:59 PM EDT Hospital Encounter [facility] MRI [address] [place] [phone] Chronic right shoulder pain Discharge Disposition: Home or Self Care 03/08/2025 4:00 PM EDT Office Visit Orthopedic Surgery [facility] [address] [facility] [address] [place] [phone] Karla Samaniego MD Chronic right shoulder pain (Primary Dx) 02/19/2025 9:15 AM EDT Office Visit General Surgery [facility] [address] [facility] [address] [place] [phone] Laith Raymond MD Ulcer of perianal area, limited to breakdown of skin ([facility] V24, [facility] V28) (Primary Dx) from Last 3 Months Immunizations Name Administration Dates Next Due Influenza Quadravalent, 0.5m l (Fluzone High-dose) 65yo and older 04/26/2024,05/21/2023 Influenza trivalent, 0.5mL (Fluad) 65yo and olde r 04/26/2024,05/21/2023 Influenza, Unspecified 04/10/2022,04/10/2022 Pfizer SARS-CoV-2 COVID-19, mRNA, LNP-S, preservative free 04/09/2023,04/09/2023 [...] 02/10/2017 DX:Anxiety Chronic obstructive pulmonar y disease ([facility] V24, [facility] V28) 04/01/2017 DX:Chronic obstructive pulm onary disease (HCC) Gastroesophageal reflux disease 02/10/2017 DX:Gastroesophageal reflux disease Lymphadenopathy 04/01/2017 DX:Lymphadenopat hy Syncope 04/01/2017 DX:Syncope Pulmonary sarcoidosis ([facility] V24) 04/01/2017 DX:Pulmonary sarcoidosis (HCC) DM (diabetes mellitus) ([facility] V24, [facility] V28) DX:DM (diabetes mellitus) (H CC) Anal [...] Information Value Date Recorded Sex Assigned at Male 03/06/2025 11:10 AM EDT Legal Sex Male 12:49 PM EST Gender Identity Male 03/06/2025 11:10 AM EDT Sexual Orientation Straight 03/06/2025 11 :10 AM EDT Obstetrics History Last Filed Vital Signs Vital Sign Reading Time Taken Comments Blood Pressure 145/74 02/19/2025 9:01 AM EDT Pulse 65 02/19/2025 9:01 AM EDT Temperature 36.4 C (97.5 F) 02/19/2025 9:01 AM EDT Respiratory Rate - - Oxygen Saturation - - Inhaled Oxygen Concentration - - Weight 78.5 kg (173 lb) 03/30/2025 9:23 AM EDT Height 177.8 cm (5' 10 ) 03/30/2025 9:23 AM EDT Body Mass Index 24.82 03/30/2025 9:23 AM EDT Plan of Treatment Upcoming Encounters Date Type Department Care Team (Late st Contact Info) Description 04/25/2025 10:30 AM EDT Office Visit Internal Medicine - [facility] [address] [place] [phone] Adrienne Ortega NP [address] [place] [address] 05/08/2025 8:45 AM EDT Office Visit Internal Medicine - [facility] [address] [place], [place] [phone] Adrienne Ortega NP [address] [place] [address] 05/28/2025 8:45 AM EDT Office Visit General Surgery - [facility] [address] [facility] [address] [place] [phone] Laith Raymond MD [address] [place] [phone] Health Maintenance Due Date Last Done Comments DTaP,Tdap,and Td Vaccines (1 - Tdap) 06/11/1975 Zoster Vaccines (1 of 2) 06/11/1975 RSV Immunization Adult Patients (1 - Risk 60-74 years 1-dose series) 06/11/2016 Social Influencers of Health Screening 07/07/2022 Depression Screening 08/09/2024 10/11/2023 Falls Risk Assessment 10/10/2024 10/11/2023 Influenza Vaccine (#1) 2025 , 04/26/2024, 05/21/2023, Additional history exists Diabetes: Blood Sugar Control Test (HGBA1C) 05/08/2025 11/06/2024, 04/26/2024, 04/26/2024, Additional history exists Diabetes: Annual Retina Eye Exam 05/09/2025 05/09/2024 Diabetes: Annual Urine Albumin-Creatinine Ratio (uACR) 11/06/2025 11/06/2024, 10/11/2023 Diabetes: Annual Foot Exam 11/06/202511/06, 11/06/2024, 10/11/2023 Diabetes: Annual GFR (Glomerular Filtration Rate) 11/06/2025 11/06/2024, 04/26/2024, 04/26/2024, Additional history exists Cholesterol Screening (Lipid Panel) 11/06/2029 11/06/2024, 08/25/2023, 08/25/2023 Colorectal Cancer Screening: Colonoscopy 09/10/2031 09/10/2021, 07/25/2018 COVID-19 Vaccine Discontinued 04/09/2023, 04/09/2023 Hepatitis C Screening Completed 05/21/2023, 023 Pneumococcal Vaccine: 50+ Years Completed 10/11/2023, 10/11/2023 Abdominal Aortic Aneurysm (AAA) Screen Discontinued HIB [...] Procedure Name Priority Date/Time Associated Diagnosis Comments XR SHOULDER 2+ VIEWS RIGHT Routine 03/30/2025 9:16 AM EDT Chronic right shoulder pain CT CHEST WO CONTRAST Routine 03/28/2025 3:26 PM EDT Other nonspecific abnormal finding of lung field Pneumonia, unspecified organism Interstitial pulmonary disease, unspecified (CMS/HCC V24, CMS/HCC V28) Other disorders of lung MR SHOULDER WO CONTRAST RIGHT Routine 03/13/2025 4:18 PM EDT Chronic right shoulder pain MICROALBUMIN CREATININE URINE RATIO Routine 11/06/2024 10:21 AM EDT Type 2 diabetes mellitus without complication, without long-term current use of insulin (CMS/HCC V24, [facility] V28) COMPREHENSIVE METABOLIC PANEL Routine 11/06/2024 10:21 AM EDT Screening for metabolic disorder HEMOGLOBIN A1C Routine 11/06/2024 10:21 AM EDT Type 2 diabetes mellitus without complication, without long-term current use of insulin (CMS/HCC V24, CMS/HCC V28) LIPID PANEL WITH REFLEX TO DIRECT LDL Routine 11/06/2024 10:21 AM EDT Screening for metabolic disorder Encounter for lipid screening for cardiovascular disease DEPRESSION SCREENING Routine 10/11/2023 FALLS RISK ASSESSMENT Routine 10/11/2023 DIABETES FOOT EXAM Routine 10/11/2023 HEPATITIS C SCREENING Routine 05/21/2023 COLONOSCOPY Routine 09/10/2021 from Last 3 Months or Most Recently Relevant to Health Maintenance Results * XR Shoulder 2+ Views Right (03/30/2025 9:16 AM EDT) Anatomical Region Laterality Modality Upper Extremities, Shoulder Right Comp uted Radiography Narrative 03/30/2025 9:30 AM EDT Right shoulder x-rays March 30, 2025 AP, Grashey, Y lateral, axillary views. No acute osseous abnormalities. No significant DJD noted. Essentially normal x-rays us Reginaldo Escobedo MD IMG XR PROCEDURES Final Result * CT Chest wo Contrast (03/28/2025 3:26 PM EDT) Anatomical Region Laterality Modality Body Computed Tomogra phy 04/03/2025 12:3 2 PM EDT Impressions 04/03/2025 12:45 PM EDT Extensive lung abnormalities bilaterally. There are nodules and confluent opacities in both lungs. Possibilities include organizing pneumonia, infection, autoimmune disease or vasculitis. The appearance is not entirely specific. -------- FINAL REPORT -------- Dictated By: Pablo Kim Dictated Date: 04/03/2025 12:32 ET Assigned Physician: Pablo Kim Reviewed and Electronically Signed By: Pablo Kim Signed Date: 04/03/2025 12:45 ET Workstation ID: [id number] Transcribed By: Self Edit Transcribed Date: 04/03/2025 12:32 ET Narrative 04/03/2025 12:45 PM EDT EXAMINATION: CT CHEST WITHOUT CONTRAST CLINICAL INFORMATION: Interstitial lung disease. Nonspecific finding of lungs. COMPARISON: None TECHNIQUE: Multidetector CT. Examination of the chest. Examination of the chest without IV contrast. Reformatting in the coronal and sagittal planes. Selected prone imaging was performed. DLP: 490 mGy-cm Dose optimization was performed including the use of low-dose iterative reconstruction technique with automatic exposure control based on patient size. Type of contrast: None Volume of IV contrast: None Volume of contrast discarded: 0 mL FINDINGS: LUNG: There is some narrowing of the trachea at the level of the thoracic inlet. The mainstem bronchi appear within normal limits. The lungs are abnormal. There is a 0.7 cm nodule in the central aspect of the right apex (3/53) Multiple additional nodules centered around the bronchovascular structures. There are confluent areas of consolidation in the middle lobe and both lower lobes. There is interlobular septal thickening. There are groundglass opacities. The groundglass opacities improved with prone imaging. There is extensive consolidation in the left upper lobe. There are numerous nodules centered around the bronchovascular structures in the left upper lobe. There is no honeycomb formation. MEDIASTINUM: Surgical clips in the expected region of the thyroid. There are multiple nonspecific mediastinal lymph nodes. There may be a tiny hiatal hernia. CARDIAC: The heart is not enlarged. No pericardial fluid or thickening. There are some nonspecific pericardiophrenic lymph nodes. CORONARY CALCIFICATION: There are mild coronary calcifications. VASCULAR: There is no thoracic aortic aneurysm. The main pulmonary artery is normal caliber PLEURA: There is no pleural fluid or pneumothorax AXILLA/CHEST WALL: There are no enlarged axillary lymph nodes. No chest wall mass demonstrated VISUALIZED UPPER ABDOMEN: No suspicious abnormality on limited assessment of the visualized upper abdomen. Suspect fatty change in the liver. There are some nonspecific upper abdominal lymph nodes including hepatogastric and celiac distribution. The spleen does not appear enlarged. There is a low attenuating lesion in the mid right kidney partially included. This is not fully characterized. MUSCULOSKELETAL: No suspicious focal bony lesion. Procedure Note Pablo Kim MD - 04/03/2025 EXAMINATION: CT CHEST WITHOUT CONTRAST CLINICAL INFORMATION: Interstitial lung disease. Nonspecific finding of lungs. COMPARISON: None TECHNIQUE: Multidetector CT. Examination of the chest. Examination of the chest without IV contrast. Reformatting in the coronal and sagittal planes. Selected prone imagingwas performed. DLP: 490 mGy-cm Dose optimization was performed including the use of low-dose iterativereconstruction technique with automatic exposure control based on patientsize. Type of contrast: None Volume of IV contrast: None Volume of contrast discarded: 0 mL FINDINGS: LUNG: There is some narrowing of the trachea at the level of the thoracicinlet. The mainstem bronchi appear within normal limits. The lungs are abnormal. There is a 0.7 cm nodule in the central aspect of the right apex (3/53) Multiple additional nodules centered around the bronchovascularstructures. There are confluent areas of consolidation in the middle lobeand both lower lobes. There is interlobular septal thickening. There aregroundglass opacities. The groundglass opacities improved with proneimaging. There is extensive consolidation in the left upper lobe. Thereare numerous nodules centered around the bronchovascular structures in theleft upper lobe. There is no honeycomb formation. MEDIASTINUM: Surgical clips in the expected region of the thyroid. Thereare multiple nonspecific mediastinal lymph nodes. There may be a tinyhiatal hernia. CARDIAC: The heart is not enlarged. No pericardial fluid or thickening.There are some nonspecific pericardiophrenic lymph nodes. CORONARY CALCIFICATION: There are mild coronary calcifications. VASCULAR: There is no thoracic aortic aneurysm. The main pulmonary arteryis normal caliber PLEURA: There is no pleural fluid or pneumothorax AXILLA/CHEST WALL: There are no enlarged axillary lymph nodes. No chestwall mass demonstrated VISUALIZED UPPER ABDOMEN: No suspicious abnormality on limited assessmentof the visualized upper abdomen. Suspect fatty change in the liver. Thereare some nonspecific upper abdominal lymph nodes including hepatogastricand celiac distribution. The spleen does not appear enlarged. There is alow attenuating lesion in the mid right kidney partially included. This isnot fully characterized. MUSCULOSKELETAL: No suspicious focal bony lesion. IMPRESSION: Extensive lung abnormalities bilaterally. There are nodules and confluentopacities in both lungs. Possibilities include organizing pneumonia, infection, autoimmune diseaseor vasculitis. The appearance is not entirely specific. -------- FINAL REPORT -------- Dictated By: Pablo Kim Dictated Date: 04/03/2025 12:32 ET Assigned Physician: Pablo Kim Reviewed and Electronically Signed By: Pablo Kim Signed Date: 04/03/2025 12:45 ET Workstation ID: [id number] Transcribed By: Self Edit Transcribed Date: 04/03/2025 12:32 ET us Johan Emmanuel MD IMG CT PROCEDURES Final Re sult * MR Shoulder wo Contrast Right (03/13/2025 4:18 PM EDT) Anatomical Region Laterality Modality Upper Extremities, Shoulder Right Magn etic Resonance 03/14/2025 3:40 AM EDT Impressions 03/14/2025 3:45 AM EDT 1. Partial thickness articular surface tearing of the supraspinatus tendon at the level of the footprint with possible superimposed areas of partial thickness tearing involving the interstitial fibers and at the level of the myotendinous junction with underlying supraspinatus tendinosis 2. Partial thickness tearing of the subscapularis tendon with underlying tendinosis 3. Constellation of findings which can be seen with the clinical setting of adhesive capsulitis 4. Moderate right AC joint arthropathy -------- FINAL REPORT -------- Dictated By: Brianna Westfall Dictated Date: 03/14/2025 03:40 ET Assigned Physician: Brianna Westfall Reviewed and Electronically Signed By: Brianna Westfall Signed Date: 03/14/2025 03:45 ET Workstation ID: [id number] Transcribed By: Self Edit Transcribed Date: 03/14/2025 03:40 ET Narrative 03/14/2025 3:45 AM EDT INDICATION: Shoulder pain, adhesive capsulitis suspected, xray done COMPARISON: None TECHNIQUE: Multiplanar, multisequence MRI examination was performed of the right shoulder without intravenous contrast. FINDINGS: Rotator Cuff: Focal areas of fluid signal involving the footprint of the supraspinatus tendon measuring approximately 8 x 5 mm suspicious for partial thickness articular surface tearing with fluid signal involving the interstitial fibers of the supraspinatus tendon which may represent additional site of partial thickness tearing with underlying severe supraspinatus tendinosis. Small amount of fluid signal involving the interstitial fibers at the myotendinous junction may represent partial thickness tearing versus a small ganglion. Infraspinatus tendinosis. Subscapularis tendinosis with partial thickness tearing of the anterior fibers. No significant muscle volume loss or fatty infiltration. Biceps Tendon: Intra-articular biceps tendinosis Labrum: Degenerative signal Bone/Cartilage: Cystic change along the greater and lesser tuberosities as well as the glenoid. Mild to moderate cartilage thinning of the humeral head and glenoid with associated cystic change. AC Joint: Moderate AC joint arthropathy with a small subacromial spur. Miscellaneous:Subacromial/subdeltoid bursitis. Right shoulder joint fluid. Thickening of the inferior axillary pouch with blurring of the rotator fat interval. Procedure Note Brianna Westfall MD - 03/14/2025 INDICATION: Shoulder pain, adhesive capsulitis suspected, xray done COMPARISON: None TECHNIQUE: Multiplanar, multisequence MRI examination was performed ofthe right shoulder without intravenous contrast. FINDINGS: Rotator Cuff: Focal areas of fluid signal involving the footprint of thesupraspinatus tendon measuring approximately 8 x 5 mm suspicious forpartial thickness articular surface tearing with fluid signal involvingthe interstitial fibers of the supraspinatus tendon which may representadditional site of partial thickness tearing with underlying severesupraspinatus tendinosis. Small amount of fluid signal involving theinterstitial fibers at the myotendinous junction may represent partialthickness tearing versus a small ganglion. Infraspinatus tendinosis. Subscapularis tendinosis with partial thicknesstearing of the anterior fibers. No significant muscle volume loss orfatty infiltration. Biceps Tendon: Intra-articular biceps tendinosis Labrum: Degenerative signal Bone/Cartilage: Cystic change along the greater and lesser tuberositiesas well as the glenoid. Mild to moderate cartilage thinning of thehumeral head and glenoid with associated cystic change. AC Joint: Moderate AC joint arthropathy with a small subacromial spur. Miscellaneous:Subacromial/subdeltoid bursitis. Right shoulder jointfluid. Thickening of the inferior axillary pouch with blurring of therotator fat interval. IMPRESSION: 1. Partial thickness articular surface tearing of the supraspinatustendon at the level of the footprint with possible superimposed areas ofpartial thickness tearing involving the interstitial fibers and at thelevel of the myotendinous junction with underlying supraspinatustendinosis 2. Partial thickness tearing of the subscapularis tendon with underlyingtendinosis 3. Constellation of findings which can be seen with the clinical settingof adhesive capsulitis 4. Moderate right AC joint arthropathy -------- FINAL REPORT -------- Dictated By: Brianna Westfall Dictated Date: 03/14/2025 03:40 ET Assigned Physician: Brianna Westfall Reviewed and Electronically Signed By: Brianna Westfall Signed Date: 03/14/2025 03:45 ET Workstation ID: [id number] Transcribed By: Self Edit Transcribed Date: 03/14/2025 03:40 ET us Karla Samaniego MD IM MRI PROCEDURES Final Resul t * (ABNORMAL) Lipid panel with reflex to direct LDL (11/06/2024 10:21 AM EDT) Cholesterol 164 0 - 200 mg/dL LAB CHEMISTRY METHOD 11/06/2024 1:39 PM EDT [facility] Triglycerides 341(H) 0 - 150 mg/dL LAB CHEMISTRY METHOD 11/06/2024 1:39 PM EDT [facility] HDL 33(L) >=40 mg/dL LAB CHEMISTRY METHOD 11/06/2024 1:39 PM EDT [facility] LDL Calculated 63 0 - 100 mg/dL LAB CHEMISTRY METHOD 11/06/2024 1:39 PM EDT [facility] VLDL Cholesterol Juan Antonio 68.2 mg/dL LAB CHEMISTRY METHOD 11/06/2024 1:39 PM EDT [facility] Non HDL Chol. (LDL+VLDL) 131 <145 mg/dL LAB CHEMISTRY METHOD 11/06/2024 1:39 PM EDT [facility] Chol/HDL Ratio 5.0(H) 0.0 - 4.4 LAB CHEMISTRY METHOD 11/06/2024 1:39 PM EDT [facility] Blood Venous blood specimen / Unknown Venipuncture / Unknown 11/06/2024 10:21 AM EDT 11/06/2024 10:21 AM EDT us Adrienne Ortega NP LAB BLOOD ORDERABLES Final Resu lt [facility] [address] [place] [address], [place] [phone] * Microalbumin creatinine urine ratio (11/06/2024 10:21 AM EDT) Creatinine, Urine 61.0 mg/dL LAB CHEMISTRY METHOD 11/06/2024 3:58 PM EDT [facility] Microalb, Ur 5.2 0.0 - 29.0 mg/L LAB CHEMISTRY METHOD 11/06/2024 3:58 PM EDT [facility] Microalb/Creat Ratio 9 <30 mg/g creat LAB CHEMISTRY METHOD 11/06/2024 3:58 PM EDT [facility] Urine Urine specimen obtained by clean catch procedure / Unknown Non-blood Collection / Unknown 11/06/2024 10:21 AM EDT 11/06/2024 10:21 AM EDT us Adrienne Ortega NP LAB URINE ORDERABLES Final Resu lt Performing Organization Address [facility]/ZIP Co de Phone Number [facility] [address] [place] [address], [place] [phone] * (ABNORMAL) Hemoglobin A1c (11/06/2024 10:21 AM EDT) [facility] Hemoglobin A1C 6.8(H) <6.5 % LAB CHEMISTRY METHOD 11/06/2024 2:11 PM EDT [facility] Mean Bld Glu Estim. 148 mg/dL LAB CHEMISTRY METHOD 11/06/2024 2:11 PM EDT [facility] Blood Venous blood specimen / Unknown Venipuncture / Unknown 11/06/2024 10:21 AM EDT 11/06/2024 10:21 AM EDT Adrienne Ortega LAB BLOOD ORDERABLES Final Resu lt Performing Organization Address [facility]/ZIP Co de Phone Number [facility] [address] [place] [address], [place] [phone] * (ABNORMAL) Comprehensive metabolic panel (11/06/2024 10:21 AM EDT) [facility] Sodium 134 133 - 145 mmol/L LAB CHEMISTRY METHOD 11/06/2024 1:39 PM [facility] Potassium 4.0 3.5 - 5.5 mmol/L LAB CHEMISTRY METHOD 11/06/2024 1:39 PM EDT [facility] Chloride 100 96 - 110 mmol/L LAB CHEMISTR[facility] 23 21 - 32 mmol/L LAB CHEMISTRY METHOD 11/06/2024 1:39 PM T [facility] Anion Gap 11 3 - 11 LAB CHEMISTRY METHOD 11/06/2024 1:39 PM EDT [facility] Glucose 128(H) 70 - 100 mg/dL LAB CHEMISTRY METHOD 11/06/2024 1:39 PM [facility] BUN 30(H) 5 - 25 mg/dL LAB CHEMISTRY METHOD 11/06/2024 1:39 PM [facility] Creatinine 0.76 0.70 - 1.30 mg/dL LAB CHEMISTRY METHOD 11/06/2024 1:39 PM [facility] eGFR 98 >=60 mL/min/1. 73m2 LAB CHEMISTRY METHOD 11/06/2024 1:39 PM [facility] Comment:Calculation based on the Chronic Kidney Disease Epidemiology Collaboration (CKD-EPI) equation refit without adjustment for race. BUN/Creatinine Ratio 39.5 LAB CHEMISTRY METHOD 11/06/2024 1:39 PM [facility] Calcium 9.1 8.5 - 10.5 mg/dL LAB CHEMISTRY METHOD 11/06/2024 1:39 PM [facility] AST (SGOT) 26 10 - 42 unit/L LAB CHEMISTRY METHOD 11/06/2024 1:39 PM [facility] ALT (SGPT) 52 10 - 60 unit/L LAB CHEMISTRY METHOD 11/06/2024 1:39 PM [facility] Alkaline Phosphatase 120 42 - 121 unit/L LAB CHEMISTRY METHOD 11/06/2024 1:39 PM [facility] Total Protein 7.1 6.0 - 8.0 g/dL LAB CHEMISTRY METHOD 11/06/2024 1:39 PM [facility] Albumin 4.0 3.2 - 5.0 g/dL LAB CHEMISTRY METHOD 11/06/2024 1:39 PM [facility] Total Bilirubin 0.7 0.0 - 1.4 mg/dL LAB CHEMISTRY METHOD 11/06/2024 1:39 PM [facility] Blood Venous blood specimen / Unknown Venipuncture / Unknown 11/06/2024 10:21 AM EDT 11/06/2024 10:21 AM EDT Adrienne Ortega [employer] LAB BLOOD ORDERABLES Final [facility]u lt [facility] [address] [place] [address], [place] [phone] * Falls Risk Assessment (10/11/2023) [facility] Falls Risk Assessment Abstracted Historical Provider MD HEALTH MAINTENANCE Final Result * Depression Screening (10/11/2023) [facility] Depression Screening Abstracted [facility] Provider HEALTH MAINTENANCE Final Result * Diabetes Foot Exam (10/11/2023) [facility] Diabetes: Annual Foot Exam Abstracted [facility] Provider HEALTH MAINTENANCE Final Result * Hepatitis C Screening (05/21/2023) [facility] Hepatitis C Screening negative Historical Provider MD HEALTH MAINTENANCE Final Result * Colonoscopy (09/10/2021) [facility] Colonoscopy No Interpretation , Abstracted Anatomical Region Laterality Modality Other Historical Provider MD HEALTH MAINTENANCE Final Result from Last 3 Months or Most Recently Relevant to Health Maintenance Insurance [facility] MEDICAID ADVANTAGE [facility] MEDICAID ADVANTAGE [address] [place] [address] Care Teams 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
== END 2025-04-24 08:39 | disposition home or self-care (01) ==
LOC: HO.HPS 08:15
PROVIDERS: PCP Nurse Practitioner Primary Care; Visit Provider Hospitalist
DX: D86.9 Sarcoidosis, unspecified (principal); J84.9 Interstitial pulmonary disease, unspecified; J45.20 Mild intermittent asthma, uncomplicated; J98.4 Other disorders of lung; J18.9 Pneumonia, unspecified organism; R91.8 Other nonspecific abnormal finding of lung field
CPT/HCPCS: 99214; G2211

== ENCOUNTER → 2025-04-24 08:15 | Outpatient (BNVA) | payer MEDICARE, SELFPAY | PROVIDERS: PCP Nurse Practitioner Primary Care; Visit Provider Hospitalist | DX: J45.20 Mild intermittent asthma, uncomplicated (principal); J84.9 Interstitial pulmonary disease, unspecified; R91.8 Other nonspecific abnormal finding of lung field; J44.9 Chronic obstructive pulmonary disease, unspecified | CPT/HCPCS: 99212 ==

== ENCOUNTER 2025-05-15 09:44 | Outpatient (REF) | payer MEDICARE, SELFPAY ==
--- NOTE | 2025-05-15 10:42 | PFT_ITS ---
Flows: FEV1: 84 % of predicted at 2.72 L FVC: 73 % of predicted at 3.13 L FEV1/FVC: 87 % Bronchodilator response: Present in small to medium airways only Volumes: Total lung capacity: 76 % of predicted at 5.46 L Residual volume: 89 % of predicted at 2.21 L Slow vital capacity: 70 % of predicted at 3.24 L Expiratory reserve volume: 44 % of predicted at 0.55 L Diffusion capacity: Normal Impression: Mild restrictive ventilatory defect with bronchodilator response present in small to medium airways only. MTDD
[2025-05-15 10:44] VITALS: PULSE 74; O2SAT 97
--- OUTSIDE RECORDS SUMMARY | 2025-05-15 11:10 | XMS_ITS | Clinical Summary ---
Author Organization 175 [facility] Address [address] [place] [address] Phone Care Team Providers Care Wildlife Science Professor Name Role Phone Adrienne Ortega NP Primary Care Provider [phone] Allergies No known active allergies Medications aspirin [...] 90 g 1 10/19/19 25 2025 Active fenofibrate (TRICOR) 145 mg tablet Take 1 tablet (145 mg total) by mouth 1 (one) time each day. 30 each 5 11/18/19 25 2024 Active glipiZIDE (GLUCOTROL XL) 10 mg 24 [...] Daily Amount: 0.25 mg 12 tablet 02/06/20 Active omeprazole (PriLOSEC) [address] capsule Take 1 capsule (40 mg total) by mouth 2 (two) times a day. 03/23/20 25 Active losartan (COZAAR) 25 mg tablet Take 1 tablet (25 mg total) by mouth 1 (one) time each day. 90 tablet 1 04/25/20 Active mycophenolate (CELLCEPT) 500 mg tabletIndicatio ns:Pulmonary sarcoidosis (CMS/HCC V24) Take 2 tablets (1,000 mg total) by mouth 2 (two) times a day. Take 1 Tablet by mouth 2 times daily. 120 each 04/25/20 25 2025 Active predniSONE (DELTASONE) 10 mg tablet Take 1 tablet (10 mg total) by mouth 1 (one) time each day. 04/24/20 25 Active losartan (COZAAR) 25 mg tablet TAKE ONE TABLET BY MOUTH EVERY DAY 90 tablet 1 10/21/19 25 2024 Discontinued empagliflozin (JARDIANCE) 25 mg tablet Take 1 tablet (25 mg total) by mouth 1 (one) time each day in the morning. Take 1 Tablet by mouth daily. 90 tablet 1 11/07/19 25 2024 mycophenolate (CELLCEPT) 500 mg tabletIndicatio ns:Pulmonary sarcoidosis (CMS/HCC V24) Take 1 tablet (500 mg total) by mouth 2 (two) times a day. Take 1 Tablet by mouth 2 times daily. 60 each 5 11/07/19 25 2024 Discontinued losartan (COZAAR) 25 mg tablet TAKE ONE TABLET BY MOUTH EVERY DAY 90 tablet 1 04/23/20 25 2024 Discontinued(R eorder) Active Problems Problem Noted Date Diagnosed Date Mixed hyperlipidemia 04/25/2025 Nontraumatic complete tear of right rotator cuff [...] and tried PT at outpt PT at [facility] with a little improvement. He [...] He had a C/S MRI 03/01/24 at [facility] that shows C6-7 degenerative disc [...] Cervical spondylosis 03/07/2024 Type 2 diabetes mellitus ([facility] V24, [facility] V 28) 10/26/2022 Type 2 diabetes mellitus ([facility] V24, [facility] V 28) 10/26/2022 Chronic obstructive pulmonar y disease ([facility] V24, [facility] V28) 04/01/2017 Lymphadenopathy 04/01/2017 Pulmonary sarcoidosis ([facility] V24) 04/01/2017 Syncope 04/01/2017 Chronic obstructive pulmonar y disease ([facility] V24, [facility] V28) 04/01/2017 Lymphadenopathy 04/01/2017 Pulmonary sarcoidosis ([facility] V24) 04/01/2017 Syncope 04/01/2017 Anxiety 02/10/2017 Gastroesophageal reflux disease 02/10/2017 Anxiety 02/10/2017 Gastroesophageal reflux disease 02/10/2017 Encounters Date Type Department Care Team Description 05/09/2025 5:12 PM EDT - 05/09/2025 5:45 PM EDT Emergency [facility] Emergency [address] [place] [address] Johnny Syed MD Encounter for medical screening examination (Primary Dx); Atypical chest pain; Abnormal electrocardiogram; Hyperglycemia; Elevated BUN; Pulmonary sarcoidosis ([facility] V24) Discharge Disposition: Home or Self Care 05/09/2025 10:30 AM EDT Office Visit Internal Medicine - [address] [phone] Adrienne Ortega NP Weakness (Primary Dx); Other fatigue; Polyarthralgia; Tightness in chest; Pulmonary sarcoidosis ([facility] V24); Abnormal EKG; PVC (premature ventricular contraction); ST elevation 05/09/2025 Results Follow-Up Internal Medicine - [address] [phone] Adrienne Ortega NP 04/30/2025 Telephone Orthopedic Surgery [facility] [address] [phone] Aleisha Jhoansen MA 04/30/2025 Telephone Orthopedic Surgery [facility] [address] [phone] Nathalia Young 04/25/2025 10:45 AM EDT Lab Draw Station [address] Mixed hyperlipidemia; Type 2 diabetes mellitus without complication, without long-term current use of insulin ([facility] V24, [facility] V28) 04/25/2025 10:30 AM EDT Office Visit Internal Medicine - [address] [phone] Adrienne Ortega NP Type 2 diabetes mellitus without complication, without long-term current use of insulin ([facility] V24, [facility] V28) (Primary Dx); Pulmonary sarcoidosis ([facility] V24); Gastroesophageal reflux disease without esophagitis; Anxiety; Mixed hyperlipidemia; Immunization due 04/02/2025 Telephone Orthopedic Surgery [facility] 250 175 [facility] [address] [place] [phone] Aleisha Johansen MA 03/30/2025 9:30 AM EDT Consult Orthopedic [facility] [address] [phone] Reginaldo Escobedo MD Chronic right shoulder pain (Primary Dx); Nontraumatic complete tear of right rotator cuff 03/28/2025 3:18 PM EDT - 03/28/2025 11:59 PM EDT Hospital Encounter [facility] CT Scan [address] [place] [phone] Other nonspecific abnormal finding of lung field; Pneumonia, unspecified organism; Interstitial pulmonary disease, unspecified ([facility] V24, [facility] V28); Other disorders of lung Discharge Disposition: Home or Self Care 03/13/2025 3:47 PM EDT - 03/13/2025 11:59 PM EDT Hospital Encounter [facility] MRI [address] [place] [phone] Chronic right shoulder pain Discharge Disposition: Home or Self Care 03/08/2025 4:00 PM EDT Office Visit Orthopedic [facility] [address] [phone] Karla Samaniego MD Chronic right shoulder pain (Primary Dx) 02/19/2025 9:15 AM EDT Office Visit General Surgery [facility] 175 [facility] [address] [place] [phone] Laith Raymond MD Ulcer of perianal area, limited to breakdown of skin ([facility] V24, [facility] V28) (Primary Dx) from Last 3 Months Immunizations Immunization Administration Dates Next Due Influenza Quadravalent, 0.5m l (Fluzone High-dose) 65yo and older 04/26/2024,05/21/2023 Influenza trivalent, 0.5mL ( Fluad) 65yo and older 04/25/2025,04/26/2024,05/21/2023 Influenza, Unspecified 04/10/2022,04/10/2022 Pfizer SARS-CoV-2 COVID-19, mRNA, [...] 02/10/2017 DX:Anxiety Chronic obstructive pulmonar y disease ([facility] V24, [facility] V28) 04/01/2017 DX:Chronic obstructive pulm onary disease (HCC) Gastroesophageal reflux disease 02/10/2017 DX:Gastroesophageal reflux disease Lymphadenopathy 04/01/2017 DX:Lymphadenopat hy Syncope 04/01/2017 DX:Syncope Pulmonary sarcoidosis ([facility] V24) 04/01/2017 DX:Pulmonary sarcoidosis (HCC) DM (diabetes mellitus) ([facility] V24, [facility] V28) DX:DM (diabetes mellitus) (H CC) Anal [...] Sign Reading Time Taken Comments Blood Pressure 137/67 05/09/2025 2:16 PM EDT Pulse 90 05/09/2025 2:16 PM EDT Temperature 36.9 C (98.4 F) 05/09/2025 2:16 PM EDT Respiratory Rate 16 05/09/2025 2:16 PM EDT Oxygen Saturation 98% 05/09/2025 2:16 PM EDT Inhaled Oxygen Concentration - - Weight 78.9 kg (174 lb) 05/09/2025 2:16 PM EDT Height 177.8 cm (5' 10 ) 05/09/2025 2:16 PM EDT Body Mass Index 24.97 05/09/2025 2:16 PM EDT Plan of Treatment Upcoming Encounters Date Type Department Care Team (Late st Contact Info) Description 05/28/2025 8:45 AM EDT Office Visit General Surgery - [place] [address] [facility] [address] [place] [phone] Laith Raymond MD [address] [place] [phone] 07/03/2025 9:15 AM EST Appointment [facility] CT Scan [address] [place] [phone] 11/13/2025 9:00 AM EDT Office Visit Internal Medicine - [place] [address] [place] [phone] Adrienne Ortega NP [address] [place] [address] Health Maintenance Due Date Last Done Comments DTaP,Tdap,and Td Vaccines (1 - Tdap) 06/11/1975 Zoster Vaccines (1 of 2) 06/11/1975 RSV Immunization Adult Patients (1 - Risk 60-74 years 1-dose series) 06/11/2016 Medicare Annual Wellness Visit 07/07/2022 Social Influencers of Health Screening 07/07/2022 Falls Risk Assessment 10/10/2024 10/11/2023 Diabetes: Annual Retina Eye Exam 05/09/2025 05/09/2024 Diabetes: Blood Sugar Control Test (HGBA1C) 10/23/2025 04/25/2025, 11/06/2024, 04/26/2024, Additional history exists Diabetes: Annual Urine Albumin-Creatinine Ratio (uACR) 11/06/2025 11/06/2024, 10/11/2023 Diabetes: Annual Foot Exam 11/06/202511/06, 11/06/2024, 10/11/2023 Diabetes: Annual GFR (Glomerular Filtration Rate) 05/09/2026 05/09/2025, 05/09/2025, 04/25/2025, Additional history exists Cholesterol Screening (Lipid Panel) 04/25/2030 04/25/2025, 11/06/2024, 08/25/2023, Additional history exists Colorectal Cancer Screening: Colonoscopy 09/10/2031 09/10/2021, 07/25/2018 COVID-19 Vaccine Discontinued 05/17/2023, 08/2022, 04/09/2023, Additional history exists Hepatitis C Screening Completed 05/21/2023, 023 Pneumococcal Vaccine: 50+ Years Completed 10/11/2023, 10/11/2023 Depression Screening Completed 04/25/2025, 10/11/19 24 Influenza Vaccine Completed 04/25/2025, , 04/26/2024, Additional history exists Abdominal Aortic Aneurysm (AAA) [...] Procedure Name Priority Date/Time Associated Diagnosis Comments ECG ANNOTATED 05/10/2025 XR CHEST 2 VIEWS STAT 05/09/2025 5:27 PM EDT RHYTHM ECG, REPORT Routine 05/09/2025 5: 06 PM EDT RHYTHM ECG, REPORT Routine 05/09/2025 5: 05 PM EDT ECG 12-LEAD STAT 05/09/2025 4:52 PM EDT TROPONIN I HIGH SENSITIVITY Timed 05/09/2025 4:48 PM EDT CBC WITH AUTO DIFFERENTIAL STAT 05/09/2025 2:32 PM EDT B-TYPE NATRIURETIC PEPTIDE STAT 05/09/2025 2:32 PM EDT MAGNESIUM STAT 05/09/2025 2:32 PM EDT LIPASE STAT 05/09/2025 2:32 PM EDT COMPREHENSIVE METABOLIC PANEL STAT 05/09/2025 2:32 PM EDT CBC AND DIFFERENTIAL STAT 05/09/2025 2:32 PM EDT TROPONIN I HIGH SENSITIVITY Timed 05/09/2025 2:32 PM EDT ECG 12-LEAD STAT 05/09/2025 2:15 PM EDT ECG 12-LEAD Routine 05/09/2025 11:36 AM EDT Weakness Tightness in chest CBC WITH AUTO DIFFERENTIAL Routine 05/09/2025 11:25 AM EDT SOB (shortness of breath) Weakness LOPEZ URINE CULTURE TUBE Routine 05/09/20 11:25 AM EDT Weakness URINALYSIS WITH REFLEX MICROSCOPIC AND CULTURE Routine 05/09/2025 11:25 AM EDT Weakness BASIC METABOLIC PANEL Routine 05/09/2025 11:25 AM EDT SOB (shortness of breath) Weakness CBC AND DIFFERENTIAL Routine 05/09/2025 11:25 AM EDT SOB (shortness of breath) Weakness IRON AND TIBC Routine 05/09/2025 11:25 AM EDT SOB (shortness of breath) Weakness URINALYSIS WITH REFLEX MICROSCOPIC AND CULTURE Routine 05/09/2025 11:25 AM EDT Weakness THYROID STIMULATING HORMONE WITH REFLEX TO FREE T4 AND FREE T3 Routine 05/09/2025 11:25 AM EDT PVC (premature ventricular contraction) MAGNESIUM Routine 05/09/2025 11:25 AM EDT PVC (premature ventricular contraction) ALANINE AMINOTRANSFERASE Routine 04/25/2025 10:39 AM EDT Mixed hyperlipidemia ASPARTATE AMINOTRANSFERASE Routine 04/25/2025 10:39 AM EDT Mixed hyperlipidemia BASIC METABOLIC PANEL Routine 04/25/2025 10:39 AM EDT Type 2 diabetes mellitus without complication, without long-term current use of insulin (CMS/HCC V24, CMS/HCC V28) HEMOGLOBIN A1C Routine 04/25/2025 10:39 AM EDT Type 2 diabetes mellitus without complication, without long-term current use of insulin (CMS/HCC V24, CMS/HCC V28) LIPID PANEL WITH REFLEX TO DIRECT LDL Routine 04/25/2025 10:39 AM EDT Mixed hyperlipidemia XR SHOULDER 2+ VIEWS RIGHT Routine 03/30/2025 [...] long-term current use of insulin (CMS/HCC V24, CMS/[facility] V28) DEPRESSION SCREENING Routine 10/11/2023 FALLS RISK ASSESSMENT Routine 10/11/2023 DIABETES FOOT EXAM Routine 10/11/2023 HEPATITIS C SCREENING Routine 05/21/2023 COLONOSCOPY Routine 09/10/2021 from Last 3 Months or Most Recently Relevant to Health Maintenance Results * ECG-Annotated (05/10/2025) us Provider Onbase MD ECG ORDERABLES Final Result * XR Chest 2 Views (05/09/2025 5:27 PM EDT) Anatomical Region Laterality Modality Body Radiographic Cathy ging 05/10/2025 8:42 AM EDT Impressions 05/10/2025 8:48 AM EDT FINDINGS/IMPRESSION: Patchy opacities in the left upper and bilateral lower lobe are similar compared to the prior CT and may be related to organizing pneumonia or other chronic lung disease. No pleural effusion or pneumothorax. Cardiac silhouette is normal in size. Degenerative changes seen throughout the bones. Surgical clips overlie the upper mediastinum and right upper quadrant of the abdomen.. -------- FINAL REPORT -------- Dictated By: BRUCE ESPARZA Dictated Date: 05/10/2025 08:42 ET Assigned Physician: BRUCE ESPARZA Reviewed and Electronically Signed By: BRUCE ESPARZA Signed Date: 05/10/2025 08:48 ET Workstation ID: [id number] Transcribed By: Self Edit Transcribed Date: 05/10/2025 08:42 ET Narrative 05/10/2025 8:48 AM EDT XR CHEST 2 VIEWS INDICATION: Pain TECHNIQUE: XR CHEST 2 VIEWS COMPARISON: CT 03/28/2025 Procedure Note Bruce Esparza MD - 05/10/2025 XR CHEST 2 VIEWS INDICATION: Pain TECHNIQUE: XR CHEST 2 VIEWS COMPARISON: CT 03/28/2025 IMPRESSION: FINDINGS/IMPRESSION: Patchy opacities in the left upper and bilaterallower lobe are similar compared to the prior CT and may be related toorganizing pneumonia or other chronic lung disease. No pleural effusionor pneumothorax. Cardiac silhouette is normal in size. Degenerativechanges seen throughout the bones. Surgical clips overlie the uppermediastinum and right upper quadrant of the abdomen.. -------- FINAL REPORT -------- Dictated By: BRUCE ESPARZA Dictated Date: 05/10/2025 08:42 ET Assigned Physician: BRUCE ESPARZA Reviewed and Electronically Signed By: BRUCE ESPARZA Signed Date: 05/10/2025 08:48 ET Workstation ID: [id number] Transcribed By: Self Edit Transcribed Date: 05/10/2025 08:42 ET us Johnny Syed MD IMG XR PROCEDURES Final Result * RHYTHM ECG, REPORT (05/09/2025 5:06 PM EDT) Only the most recent of2 resultswithin the time period is included. Narrative Johnny Syed MD - 05/09/2025 5:06 PM EDT Johnny Syed MD 05/09/2025 5:41 PM ECG Rhythm Interpretation and Report Date/Time: 05/09/2025 5:06 PM Performed by: Johnny Syed MD Authorized by: Johnny Syed MD ECG interpreted by ED Physician in the absence of a facilities clerk: yes Previous ECG: Previous ECG: Compared to current Similarity: No change Interpretation: Interpretation: non-specific Quality: Tracing quality: Limited by artifact Rate: ECG rate assessment: normal Rhythm: Rhythm: sinus rhythm Ectopy: Ectopy: PAC QRS: QRS axis: Normal Comments: Repeat EKG shows sinus rhythm at 82 with frequent PACs, no ST changes, no T wave inversions, normal axis, poor R wave progression, not significantly changed compared with EKG for #1, independently reviewed and interpreted contemporaneously by me as an abnormal but nonischemic EKG. us Johnny Syed MD ECG ORDERABLES Final Result * ECG 12 lead (05/09/2025 4:52 PM EDT) Only the most recent of3 resultswithin the time period is included. Pathologist [facility] Ventricular Rate ECG 82 BPM GEMUSE Atrial Rate 82 BPM GEMUSE P-R Interval 192 ms GEMUSE QRS Duration 96 ms GEMUSE Q-T Interval 372 ms GEMUSE QTc 434 ms GEMUSE P Wave [place] 17 degrees GEMUSE R [place] -27 degrees GEMUSE T [place] 34 degrees GEMUSE ECG Interpretation Sinus rhythm with marked sinus arrhythmia Otherwise normal ECG When compared with ECG of 09-MAY-2025 14:15, (unconfirmed) Premature atrial complexes are no longer Present Confirmed by AMANDEEP WELLS ([id number]) on 05/10/2025 5:47:08 PM GEMUSE 05/09/2025 4:52 PM EDT 05/10/2025 5:47 PM EDT us Johnny Syed MD ECG ORDERABLES Final Result GEMUSE * Troponin I high sensitivity (05/09/2025 4:48 PM EDT) Only the most recent of2 resultswithin the time period is included. Pathologist [facility] High Sensitivity Troponin I 3 <=79 ng/L LAB CHEMISTRY METHOD 05/09/2025 5:33 PM EDT [facility] Blood Venous blood specimen / Unknown Venipuncture / Unknown 05/09/2025 4:48 PM EDT 05/09/2025 4:55 PM EDT Narrative [facility] - 05/09/2025 5:33 PM EDT High levels of biotin in samples may falsely decrease hsTroponin values. Use caution when interpreting hsTroponin results in patients taking biotin who exhibit renal impairment (eGFR <60) or in patients taking more than 20 mg/day of biotin. us Johnny Syed MD LAB BLOOD ORDERABLES Final Res ult [facility] [address] [place] [address], [place] [phone] * (ABNORMAL) CBC auto differential (05/09/2025 2:32 PM EDT) Only the most recent of2 resultswithin the time period is included. WBC 5.6 4.8 - 10.8 K/mcL LAB HEMETOLOGY METHOD 05/09/2025 3:02 PM EDT [facility] RBC 5.20 4.50 - 5.50 M/mcL LAB HEMETOLOGY METHOD 05/09/2025 3:02 PM EDT [facility] Hemoglobin 16.1 13.5 - 17.5 g/dL LAB HEMETOLOGY METHOD 05/09/2025 3:02 PM EDT [facility] Hematocrit 46.5 42.0 - 54.0 % LAB HEMETOLOGY METHOD 05/09/2025 3:02 PM EDT [facility] MCV 89.9 79.0 - 98.0 FL LAB HEMETOLOGY METHOD 05/09/2025 3:02 PM EDT [facility] MCH 31.1 27.0 - 32.0 pcg LAB HEMETOLOGY METHOD 05/09/2025 3:02 PM EDT [facility] MCHC 34.6 32.0 - 37.0 g/dL LAB HEMETOLOGY METHOD 05/09/2025 3:02 PM [facility] RDW 13.4 11.0 - 15.0 % LAB HEMETOLOGY METHOD 05/09/2025 3:02 PM [facility] Platelets 172 130 - 400 K/mcL LAB HEMETOLOGY METHOD 05/09/2025 3:02 PM [facility] MPV 9.2 7.0 - 11.0 FL LAB HEMETOLOGY METHOD 05/09/2025 3:02 PM [facility] NRBC 0.0 <1.0 % LAB HEMETOLOGY METHOD 05/09/2025 3:02 PM [facility] NRBC Absolute 0.00 <0.10 K/mcL LAB HEMETOLOGY METHOD 05/09/2025 3:02 PM [facility] Neutrophils Relative 86.1 % LAB HEMETOLOGY METHOD 05/09/2025 3:02 PM [facility] Lymphocytes Relative 7.6 % LAB HEMETOLOGY METHOD 05/09/2025 3:02 PM [facility] Monocytes Relative 4.8 % LAB HEMETOLOGY METHOD 05/09/2025 3:02 PM [facility] Eosinophils Relative 0.4 % LAB HEMETOLOGY METHOD 05/09/2025 3:02 PM [facility] Basophils Relative 0.2 % LAB HEMETOLOGY METHOD 05/09/2025 3:02 PM [facility] Immature Granulocytes Relative 0.9 % LAB HEMETOLOGY METHOD 05/09/2025 3:02 PM [facility] Neutrophils Absolute 4.85 1.50 - 7.00 K/mcL LAB HEMETOLOGY METHOD 05/09/2025 3:02 PM [facility] Lymphocytes Absolute 0.43(L) 1.00 - 5.00 K/mcL LAB HEMETOLOGY METHOD 05/09/2025 3:02 PM EDT [facility] Monocytes Absolute 0.27 0.20 - 1.00 K/mcL LAB HEMETOLOGY METHOD 05/09/2025 3:02 PM EDT [facility] Eosinophils Absolute 0.02 0.00 - 0.50 K/[facility] LAB HEMETOLOGY METHOD 05/09/2025 3:02 PM EDT [facility] Basophils Absolute 0.01 0.00 - 0.20 K/[facility] LAB HEMETOLOGY METHOD 05/09/2025 3:02 PM EDT [facility] Immature Granulocytes Absolute 0.05(H) 0.00 - 0.03 K/mcL LAB HEMETOLOGY METHOD 05/09/2025 3:02 PM EDT [facility] Blood Venous blood specimen / Unknown Venipuncture / Unknown 05/09/2025 2:32 PM EDT 05/09/2025 2:50 PM EDT us Johnny Syed MD LAB BLOOD ORDERABLES Final Res ult [facility] [address] [place] [address], * B-type natriuretic peptide (05/09/2025 2:32 PM EDT) BNP 12 <=100 pcg/mL LAB CHEMISTRY METHOD 05/09/2025 4:00 PM EDT [facility] Blood Venous blood specimen / Unknown Venipuncture / Unknown 05/09/2025 2:32 PM EDT 05/09/2025 2:50 PM EDT us Johnny Syed MD LAB BLOOD ORDERABLES Final Res ult [facility] [address] [place] [address], [place] [phone] * Magnesium (05/09/2025 2:32 PM EDT) Only the most recent of2 resultswithin the time period is included. Pathologist [facility] Magnesium 2.2 1.9 - 2.6 mg/dL LAB CHEMISTRY METHOD 05/09/2025 3:36 PM EDT [facility] Blood Venous blood specimen / Unknown Venipuncture / Unknown 05/09/2025 2:32 PM EDT 05/09/2025 2:50 PM EDT us Johnny Syed MD LAB BLOOD ORDERABLES Final Res ult Performing Organization Address City/[facility]/ZIP Co de Phone Number [facility] [address] [place] [address], * Lipase (05/09/2025 2:32 PM EDT) [facility] Lipase 53 13 - 75 unit/L LAB CHEMISTRY METHOD 05/09/2025 3:36 PM EDT [facility] Blood Venous blood specimen / Unknown Venipuncture / Unknown 05/09/2025 2:32 PM EDT 05/09/2025 2:50 PM EDT us Johnny Syed MD LAB BLOOD ORDERABLES Final Res ult [facility] [address] [place] [address], [place] [phone] * (ABNORMAL) Comprehensive metabolic panel (05/09/2025 2:32 PM EDT) [facility] Sodium 132(L) 133 - 145 mmol/L LAB CHEMISTRY METHOD 05/09/2025 3:50 PM EDT [facility] Potassium 4.7 3.5 - 5.5 mmol/L LAB CHEMISTRY METHOD 05/09/2025 3:50 PM [facility] Chloride 101 96 - 110 mmol/L LAB CHEMISTRY METHOD 05/09/2025 3:50 PM [facility] CO2 23 21 - 32 mmol/L LAB CHEMISTRY METHOD 05/09/2025 3:50 PM [facility] Anion Gap 8 3 - 11 LAB CHEMISTRY METHOD 05/09/2025 3:50 PM [facility] Glucose 334(H) 70 - 100 mg/dL LAB CHEMISTRY METHOD 05/09/2025 3:50 PM [facility] BUN 26(H) 5 - 25 mg/dL LAB CHEMISTRY METHOD 05/09/2025 3:50 PM [facility] Creatinine 0.96 0.70 - 1.30 mg/dL LAB CHEMISTRY METHOD 05/09/2025 3:50 PM [facility] eGFR 86 >=60 mL/min/1. 73m2 LAB CHEMISTRY METHOD 05/09/2025 3:50 PM [facility] Comment:Calculation based on the Chronic Kidney Disease Epidemiology Collaboration (CKD-EPI) equation refit without adjustment for race. BUN/Creatinine Ratio 27.1 LAB CHEMISTRY METHOD 05/09/2025 3:50 PM [facility] Calcium 9.4 8.5 - 10.5 mg/dL LAB CHEMISTRY METHOD 05/09/2025 3:50 PM [facility] AST (SGOT) 22 10 - 42 unit/L LAB CHEMISTRY METHOD 05/09/2025 3:50 PM [facility] ALT (SGPT) 59 10 - 60 unit/L LAB CHEMISTRY METHOD 05/09/2025 3:50 PM [facility] Alkaline Phosphatase 107 42 - 121 unit/L LAB CHEMISTRY METHOD 05/09/2025 3:50 PM [facility] Total Protein 6.6 6.0 - 8.0 g/dL LAB CHEMISTRY METHOD 05/09/2025 3:50 PM EDT [facility] Albumin 3.9 3.2 - 5.0 g/dL LAB CHEMISTRY METHOD 05/09/2025 3:50 PM EDT [facility] Total Bilirubin 0.7 0.0 - 1.4 mg/dL LAB CHEMISTRY METHOD 05/09/2025 3:50 PM EDT [facility] Blood Venous blood specimen / Unknown Venipuncture / Unknown 05/09/2025 2:32 PM EDT 05/09/2025 2:50 PM EDT us Johnny Syed MD LAB BLOOD ORDERABLES Final Res ult [facility] [address] [place] [address], [place] [phone] * (ABNORMAL) Urinalysis with reflex microscopic and culture (05/09/2025 11:25 AM EDT) Specific [place] Urine 1.016 1.003 - 1.030 LAB URINALYSIS - AUTOMATED METHOD 05/09/2025 2:41 PM [facility] pH, Urine 5.5 5.0 - 8.0 pH LAB URINALYSIS - AUTOMATED METHOD 05/09/2025 2:41 PM [facility] Leukocytes, Urine Negative Negative LAB URINALYSIS - AUTOMATED METHOD 05/09/2025 2:41 PM [facility] Nitrite, Urine Negative Negative LAB URINALYSIS - AUTOMATED METHOD 05/09/2025 2:41 PM [facility] Protein, Urine Negative <=Trace mg/dL LAB URINALYSIS - AUTOMATED METHOD 05/09/2025 2:41 PM [facility] Glucose, Urine >=1000(A) Negative mg/dL LAB URINALYSIS - AUTOMATED METHOD 05/09/2025 2:41 PM [facility] Ketones, Urine Negative Negative mg/dL LAB URINALYSIS - AUTOMATED METHOD 05/09/2025 2:41 PM EDT [facility] Urobilinogen , Urine 0.2 0.2 - 1.0 mg/dL LAB URINALYSIS - AUTOMATED METHOD 05/09/2025 2:41 PM EDT [facility] Bilirubin, Urine Negative Negative LAB URINALYSIS - AUTOMATED METHOD 05/09/2025 2:41 PM EDT [facility] Blood, Urine Negative Negative LAB URINALYSIS - AUTOMATED METHOD 05/09/2025 2:41 PM EDT [facility] Urine Urine specimen obtained by clean catch procedure / Unknown Non-blood Collection / Unknown 05/09/2025 11:25 AM EDT 05/09/2025 11:25 AM EDT Adrienne Ortega NP LAB URINE ORDERABLES Final Resu lt Performing Organization Address City/[facility]/ZIP Co de Phone Number [facility] [address] [place] [address], [place] [phone] * Lopez urine culture tube (05/09/2025 11:25 AM EDT) Extra Tube Hold for add-ons. 05/09/2025 3:01 PM EDT [facility] Comment:Auto resulted. Urine Urine specimen obtained by clean catch procedure / Unknown Non-blood Collection / Unknown 05/09/2025 11:25 AM EDT 05/09/2025 11:25 AM EDT Adrienne Ortega NP LAB URINE ORDERABLES Final Resu lt Performing Organization Address City/[facility]/ZIP Co de Phone Number [facility] [address] [place] [address], [place] [phone] * Thyroid stimulating hormone with reflex to free t4 and free t3 (05/09/2025 11:25 AM EDT) TSH 1.59 0.40 - 4.00 mcIU/mL LAB CHEMISTRY METHOD 05/09/2025 4:18 PM EDT [facility] Blood Venous blood specimen / Unknown Venipuncture / Unknown 05/09/2025 11:25 AM EDT 05/09/2025 11:25 AM EDT Adrienne Ortega LAB BLOOD ORDERABLES Final Resu lt [facility] [address] [place] [address], [place] [phone] * Iron and TIBC (05/09/2025 11:25 AM EDT) [facility] Iron 138 50 - 160 mcg/dL LAB CHEMISTRY METHOD 05/09/2025 4:11 PM EDT [facility] TIBC 320 250 - 450 mcg/dL LAB CHEMISTRY METHOD 05/09/2025 4:11 PM EDT [facility] Iron Saturation 43 20 - 50 % LAB CHEMISTRY METHOD 05/09/2025 4:11 PM EDT [facility] Blood Venous blood specimen / Unknown Venipuncture / Unknown 05/09/2025 11:25 AM EDT 05/09/2025 11:25 AM EDT Adrienne Ortega LAB BLOOD ORDERABLES Final Resu lt Performing Organization Address City/[facility]/ZIP Co de Phone Number [facility] [address] [place] [address], [place] [phone] * (ABNORMAL) Basic metabolic panel (05/09/2025 11:25 AM EDT) Only the most recent of2 resultswithin the time period is included. [facility] Sodium 136 133 - 145 mmol/L LAB CHEMISTRY METHOD 05/09/2025 4:11 PM EDT [facility] Potassium 4.3 3.5 - 5.5 mmol/L LAB CHEMISTRY METHOD 05/09/2025 4:11 PM [facility] Chloride 102 96 - 110 mmol/L LAB CHEMISTRY METHOD 05/09/2025 4:11 PM [facility] CO2 24 21 - 32 mmol/L LAB CHEMISTRY METHOD 05/09/2025 4:11 PM [facility] Anion Gap 10 3 - 11 LAB CHEMISTRY METHOD 05/09/2025 4:11 PM [facility] Glucose 180(H) 70 - 100 mg/dL LAB CHEMISTRY METHOD 05/09/2025 4:11 PM [facility] BUN 26(H) 5 - 25 mg/dL LAB CHEMISTRY METHOD 05/09/2025 4:11 PM [facility] Creatinine 0.85 0.70 - 1.30 mg/dL LAB CHEMISTRY METHOD 05/09/2025 4:11 PM [facility] eGFR 95 >=60 mL/min/1. 73m2 LAB CHEMISTRY METHOD 05/09/2025 4:11 PM [facility] Comment:Calculation based on the Chronic Kidney Disease Epidemiology Collaboration (CKD-EPI) equation refit without adjustment for race. BUN/Creatinine Ratio 30.6 LAB CHEMISTRY METHOD 05/09/2025 4:11 PM [facility] Calcium 9.6 8.5 - 10.5 mg/dL LAB CHEMISTRY METHOD 05/09/2025 4:11 PM [facility] Blood Venous blood specimen / Unknown Venipuncture / Unknown 05/09/2025 11:25 AM EDT 05/09/2025 11:25 AM EDT us Adrienne Ortega NP LAB BLOOD ORDERABLES Final Resu lt [facility] [address] [place] [address], * (ABNORMAL) Lipid panel with reflex to direct LDL (04/25/2025 10:39 AM EDT) Cholesterol 169 0 - 200 mg/dL LAB CHEMISTRY METHOD 04/25/2025 5:04 PM EDT [facility] Triglycerides 225(H) 0 - 150 mg/dL LAB CHEMISTRY METHOD 04/25/2025 5:04 PM EDT [facility] HDL 37(L) >=40 mg/dL LAB CHEMISTRY METHOD 04/25/2025 5:04 PM EDT [facility] LDL Calculated 87 0 - 100 mg/dL LAB CHEMISTRY METHOD 04/25/2025 5:04 PM EDT [facility] Comment:Estimated LDL Calcul ated using equation: Total cholesterol - HDL cholesterol - (Triglycerides/5) VLDL Cholesterol Juan Antonio 45 mg/dL LAB CHEMISTRY METHOD 04/25/2025 5:04 PM EDT [facility] Non HDL Chol. (LDL+VLDL) 132 <145 mg/dL LAB CHEMISTRY METHOD 04/25/2025 5:04 PM EDT [facility] Chol/HDL Ratio 4.6(H) 0.0 - 4.4 LAB CHEMISTRY METHOD 04/25/2025 5:04 PM T [facility] Blood Venous blood specimen / Unknown Venipuncture / Unknown 04/25/2025 10:39 AM EDT 04/25/2025 10:39 AM EDT us Adrienne Ortega RN [facility] LAB BLOOD ORDERABLES Final Resu lt [facility] [address] [place] [address], * Alanine aminotransferase (04/25/2025 10:39 AM EDT) ALT (SGPT) 46 10 - 60 unit/L LAB CHEMISTRY METHOD 04/25/2025 5:01 PM EDT [facility] Blood Venous blood specimen / Unknown Venipuncture / Unknown 04/25/2025 10:39 AM EDT 04/25/2025 10:39 AM EDT Adrienne Ashtonti LAB BLOOD ORDERABLES Final Resu lt [facility] [address] [place] [address], [place] [phone] * Aspartate aminotransferase (04/25/2025 10:39 AM EDT) Pathologist [facility] AST (SGOT) 25 10 - 42 unit/L LAB CHEMISTRY METHOD 04/25/2025 5:01 PM EDT [facility] Blood Venous blood specimen / Unknown Venipuncture / Unknown 04/25/2025 10:39 AM EDT 04/25/2025 10:39 AM EDT Adrienne Ortega LAB BLOOD ORDERABLES Final Resu lt Performing Organization Address [facility]/ZIP Co de Phone Number [facility] [address] [place] [address], [place] [phone] * (ABNORMAL) Hemoglobin A1c (04/25/2025 10:39 AM EDT) [facility] Hemoglobin A1C 6.8(H) <6.5 % LAB CHEMISTRY METHOD 04/25/2025 8:21 PM EDT [facility] Mean Bld Glu Estim. 148 mg/dL LAB CHEMISTRY METHOD 04/25/2025 8:21 PM EDT [facility] Blood Venous blood specimen / Unknown Venipuncture / Unknown 04/25/2025 10:39 AM EDT 04/25/2025 10:39 AM EDT Adrienne Ortega LAB BLOOD ORDERABLES Final Resu lt [facility] [address] [place] [address], [place] [phone] * XR Shoulder 2+ Views Right (03/30/2025 [...] Tomogra phy 04/03/2025 12:3 2 PM EDT Addenda Addendum by Pablo Kim MD on 04/25/2025 10:15 AM EDT Addendum: Previous CT 05/01/24 has become available and is compared Digital servicer coin machines radiograph suggests interval worsening aeration when compared to most recent previous. No significant change in nodule in the central right apex. Overall interval worsening aeration when compared to 05/01/24 Track Service Worker area of airspace disease in the lateral aspect of the left upper lobe 03/28/25-6.2 x 3.3 x 3.8 cm 05/01/24-4.5 x 3.3 x 3.4 cm 01/26/22-3.8 x 2.7 x 4.6 m Confluent airspace opacity in the middle lobe 03/28/25-5.1 x 4.0 x 3.9 cm 05/01/24-3.9 x 2.4 x 2.9 cm 02/25/22-not present Confluent opacity in the posterolateral right lower lobe 03/28/25-6.1 x 3.9 x 4.1 cm 05/01/24-5.1 x 2.7 x 4.0 cm 01/26/22-5.5 x 3.7 x 4.7 cm -------- ADDENDUM -------- Dictated By: Pablo Kim Dictated Date: 04/25/2025 10:02 ET Assigned Physician: Pablo Kim Reviewed and Electronically Signed By: Pablo Kim Signed Date: 04/25/2025 10:15 ET Workstation ID: [id number] Transcribed By: Self Edit Transcribed Date: 04/25/2025 10:02 ET Impressions 04/03/2025 12:45 PM EDT Extensive lung [...] Signed Date: 04/03/2025 12:45 ET Workstation ID: [id number] Transcribed By: Self Edit Transcribed Date: 04/03/2025 [...] Signed Date: 04/03/2025 12:45 ET Workstation ID: [id number] Transcribed By: Self Edit Transcribed Date: 04/03/2025 12:32 ET Johan Emmanuel MD IMG CT PROCEDURES Edited R esult - Final * MR Shoulder wo Contrast Right (03/13/2025 [...] Signed Date: 03/14/2025 03:45 ET Workstation ID: [id number] Transcribed By: Self Edit Transcribed Date: 03/14/2025 [...] Signed Date: 03/14/2025 03:45 ET Workstation ID: [id number] Transcribed By: Self Edit Transcribed Date: 03/14/2025 03:40 ET us Karla Samaniego MD [facility] MRI PROCEDURES Final Resul t * Microalbumin creatinine urine ratio (11/06/2024 10:21 AM EDT) Creatinine, Urine 61.0 mg/dL LAB CHEMISTRY METHOD 11/06/2024 3:58 PM EDT [facility] Microalb, Ur 5.2 0.0 - 29.0 mg/L LAB CHEMISTRY METHOD 11/06/2024 3:58 PM EDT [facility] Microalb/Creat Ratio 9 <30 mg/g creat LAB CHEMISTRY METHOD 11/06/2024 3:58 PM EDT [facility] Urine Urine specimen obtained by clean catch procedure / Unknown Non-blood Collection / Unknown 11/06/2024 10:21 AM EDT 11/06/2024 10:21 AM EDT Adrienne Ortega RN [facility] LAB URINE ORDERABLES Final Resu lt [facility] [address] [place] [address], * Falls Risk Assessment (10/11/2023) [facility] Falls Risk Assessment Abstracted Historical Provider HEALTH MAINTENANCE Final Result * Depression Screening (10/11/2023) [facility] Depression Screening Abstracted Historical Provider HEALTH MAINTENANCE Final Result * Diabetes Foot Exam (10/11/2023) [facility] Diabetes: Annual Foot Exam Abstracted Historical Provider HEALTH MAINTENANCE Final Result * Hepatitis C Screening (05/21/2023) [facility] Hepatitis C Screening negative Historical Provider HEALTH MAINTENANCE Final Result * Colonoscopy (09/10/2021) [facility] Colonoscopy No Interpretation , Abstracted Anatomical Region Laterality Modality Other Historical Provider HEALTH MAINTENANCE Final Result from Last 3 Months or Most Recently Relevant to Health Maintenance Insurance [employer] Care Teams Wildlife Science Professor Relationship Specialty Start Date End Date Adrienne Ortega NP [address] [place] [address] PCP - General Primary Care 06/09/24
--- OUTSIDE RECORDS SUMMARY | 2025-05-15 11:10 | XMS_ITS | Encounter Summary ---
Author Organization [facility] Address [address] [place] [address] Care Team Providers Care Primary School Teacher Librarian Name Role Phone Adrienne Ortega NP Primary Care Provider [phone] Encounter Details Date Type Department Care Team (Late st Contact Info) Description 05/09/2025 Results Follow-Up Internal Medicine - [place] [address] [place] [address] Adrienne Ortega NP [address] [place] [address] Social History Tobacco Use Types Packs/Day Years [...] Orientation Straight 03/06/2025 11 :10 AM EDT documented as of this encounter Progress Notes * Adrienne Ortega NP - 05/09/2025 4:25 PM EDT My chart message sent. documented in this encounter Plan of Treatment Upcoming Encounters Date Type Department Care Team (Late st Contact Info) Description 05/28/2025 8:45 AM EDT Office Visit General Surgery - [place] [address] [facility] [address] [place] [id number] Laith Raymond MD [address] [place] [address] 07/03/2025 9:15 AM EST Appointment [facility] CT Scan [address] [place] [id number] 11/13/2025 9:00 AM EDT Office Visit Internal Medicine - [place] [address] [place] [address] Adrienne Ortega NP [address] [place] [address] documented as of this encounter Visit Diagnoses Not on filedocumented in this encounter Additional Health Concerns Assessment Noted Time PHQ-9 Depression Total Score: 0 04/25/20 10:00 AM EDT documented as of this encounter Care Teams Primary School Teacher Librarian Relationship Specialty Start Date End Date Adrienne Ortega NP [address] [place] [address] PCP - General Primary Care 06/09/24 documented as of this encounter
== END 2025-05-15 09:45 | disposition home or self-care (01) ==
LOC: HO.RESP 09:44
PROVIDERS: PCP Nurse Practitioner Primary Care; Visit Provider Hospitalist
DX: J84.9 Interstitial pulmonary disease, unspecified (principal); D86.9 Sarcoidosis, unspecified
CPT/HCPCS: 94010; 94640; 94727; 94729

== ENCOUNTER → 2025-05-15 10:42 | Outpatient (BNV) | payer MEDICARE, SELFPAY | PROVIDERS: PCP Nurse Practitioner Primary Care; Visit Provider Internal Medicine Pulmonary Disease | DX: J18.9 Pneumonia, unspecified organism (principal) | CPT/HCPCS: 94060; 94727; 94729 ==

== ENCOUNTER 2025-07-25 08:17 | Outpatient (AMB) | payer MEDICARE, SELFPAY ==
[2025-07-25 08:20] VITALS: BP 124/66; PULSE 82; O2SAT 97; BMI 24.8
--- NOTE | 2025-07-25 08:20 | MHC.OFFVIS ---
Vital Signs 07/25/25 08:20 Height 5 ft 10 in Weight 173 lb 1.006 oz BMI 24.8 BP 124/66 Blood Pressure Location Lt brachial Position Sitting Pulse 82 Pulse Source Pulse Oximeter Pulse Oximetry (%) 97 Oxygen Delivery Method Room Air Intake Visit Reasons: sarcoidosis Hr Operations Advisor Required: No Deputy Sheriff Custody: Deputy Sheriff Custody offered & declined Accompanied by: Self / Same As Patient Allergies No Known Allergies Allergy (Verified 07/25/25 08:23) HPI Comments Details: The patient is a 69-year-old gentleman with a known history of sarcoidosis in addition to asthma. Patient may indeed have some endobronchial sarcoid involvement. He had been doing very well intermittently on Breo. More recently in the end of July early August he started developing symptoms consistent with a viral syndrome. He developed worsening respiratory symptoms and was treated by his primary care doctor. Still, he feels like his respiratory symptoms have not recovered 100%. Sometimes he developed episodes of not been able to breathe well. He did try Advair but was not very effective. He was concerned the Breo is more money more expenses. Although he has noticed that works better. He also did have a chest x-ray at [facility] back in September of this year that we personally reviewed demonstrating interval decrease in the hilar lymphadenopathy. Otherwise, no acute disease. His last CT scan of the chest was at [facility] back in 2017. 02/27/2022 the patient is here for a pulmonary follow-up visit. Overall the patient has been doing relatively well. He still has an intermittent cough. Although denies any shortness breath or Any discomfort. He did undergo a CT scan of the chest at [facility]. That was compared to a CT scan he had back in 2017. It appears that he had interval worsening the airspace disease bilaterally in addition to new pulmonary nodules measuring up to 7 mm in size. The ground-glass opacities areas vary between 2 and 4 cm in size. I did compare his CT scan results from [facility] to his last CT scan that he had back in 2020. It appeared that the nodules are relatively stable. Although the areas of airspace disease appeared to be slightly bigger in size. In view of the worsening disease I did talk to the patient about considering treating him with small dose of prednisone to see if we leave the 8 the pulmonary nodules in the airspace disease. And therefore will have a short interval before repeating the CT scan of 3 months to see if the therapy was effective. The patient stands that although this is likely all sarcoid in his lungs we cannot rule out a secondary concomitant medical issues including cancer. 05/25/2022 the patient is here for a pulmonary follow-up visit. Overall he has been feeling better while on the prednisone. Denies any significant shortness of breath or cough. However, the prednisone has resulted on significantly elevated blood sugars and hemoglobin A1c. His diabetes medication for indeed increased. However, still very uncontrolled. He did have a repeat CT scan of the chest done at [facility] demonstrating some improvement some of the parenchymal disease and also some stability. No evidence of any worsening or new nodules which is reassuring. We talked about using immunomodulators to treat his underlying sarcoidosis try to minimize the prednisone adverse effects. The patient is agreeable to this. Talked about different immunomodulators including mycophenolate and methotrexate. Will go ahead and start him on mycophenolate small dose to titrate up in addition to that will have blood work to make sure that he is tolerating the medication. 08/24/2022 the patient is here for a pulmonary follow-up visit. The patient has been responding well to the CellCept. His sugars are now normalized. He has not had any adverse effects from the medication. He is taking 500 mg twice a day. Explained to him that this is a very low dose and is reassuring. From a respiratory status he feels well he denies any significant coughing or shortness of breath. He denies any significant wheezing. Overall he feels like he is responding positively to the medication. His blood work needs to be updated. The patient understands that this medication has potential side effects and he needs to undergo blood work to make sure. The patient has been describing some epigastric discomfort. He is following closely with his GI doctor. Recently had a barium swallow and will follow-up with those results. At this point I doubt that the epigastric discomfort is related to the CellCept but will go ahead and also request additional blood work just to work it up some. His last CT scan was back in May 2022. Will continue to treat him monitor him. As long as he is doing okay will hold off till May [address] scan. If at any point he develops worsening symptoms we may have to consider getting a CT scan sooner. 12/22/2022 the patient is here for pulmonary follow-up visit. He is tolerating the CellCept well. His respiratory symptoms have improved. Denies any wheezing or coughing or shortness of breath. He has been able to work more regularly without being breathless. He feels like is a good medication for him. In the meantime he did follow-up with GI doctor. Is found to have reflux disease and was placed on a PPI. Seems like the GI symptoms are better at this time. Is also good that he is off the prednisone and likely contributing to those discomforts. The patient's sugars also coming down in his hemoglobin A1c is normalizing which is happy about. Based on the fact that he is doing well will continue with current respiratory regimen. Will continue the with current CellCept dose. The patient will need to get blood work over the summer. Will plan to repeat his CT scan at [facility] sometime in May 2023 to follow-up with the interstitial lung changes in the pulmonary nodules. 05/18/2023 the patient is here for a pulmonary follow-up visit. Overall he continues to do well. Continues to tolerate the CellCept. His cough is better and breathlessness as well. No GI side effects at this time. The patient did undergo a CT scan of the chest that was personally by me. Unfortunately he does have some interval increase areas of ground-glass opacities and nodular densities. Therefore I suggested that we increase the CellCept further in a stepwise pattern up to 2 g a day. Once he reaches that therapeutic dose will go ahead and request blood work to make sure that his liver function studies and chemistries and CBC are still within normal limits. 12/03/2023 the patient is here for pulmonary follow-up. The patient states that several months ago he was started developing increasing shortness of breath. He could not explain the symptoms. Dyspnea on exertion moderate severity. He went to primary care doctor. He did have an EKG demonstrating sinus arrhythmia. In addition to that he was not provided any other therapies that he is aware of. He did undergo an echocardiogram. The patient states that he did have a stress test in the past but many years ago. In addition to that he has been on the higher dose CellCept 2 g a day. He did have blood work number which was reassuring and also had blood work with his primary care doctor. We did look at the last CT scan that he had back in a jingle writer 2022 demonstrating interval worsening of the interstitial lung disease and does want increase the CellCept to the current dose. Therefore request a chest x-ray. His respiratory exam is fairly stable and does feel better so therefore I do not think moving up the CT scan will be necessary at this time. If the x-ray is abnormal then will get a CT scan earlier time. Will also repeat the EKG. The patient may benefit from a cardiac stress if he continues have symptoms. 06/02/2024 the patient is here for a pulmonary follow-up visit. The patient overall has been doing well. He continues on the CellCept 2 g a day. The patient is tolerating the medicine well. He did have a recent CT scan of the chest at [facility]. It appears that his interstitial lung disease stable on the current dose. He is asking about when he can come off the medicine. At this point he appears to have progressive disease and therefore will keep him on the current dose. But, in the future should look to try to deescalate therapy. For now having some neck and shoulder issues. He may need surgery. So therefore keep him on the current dose. He has his CT scan showed a slightly large liver. Will have him get blood work today. 12/05/2024 the patient is here for pulmonary follow-up visit. Overall he is doing very well. His walking regularly. He denies any respiratory limitations. Denies any coughing or chest pain. He has been taking the mycophenolate 2 g a day. He has been tolerating medicine well without any adverse effects. Although he has not gotten the blood work. He is going to get it today. In the essence of having stability in the CAT scan the last CAT scan back in the fall and the fact that he is doing well from a respiratory status his respiratory exam is also reassuring will go ahead and start decreasing the mycophenolate by 500 mg every 6-8 weeks until his on 1 g a day. The patient will then have a repeat CT scan of the chest and follow-up to see if he is tolerating the medicine. I am hopeful that his CT scan continues to be stable in order for us to continue to decrease the medication effectively. 04/24/2025 the patient is here for pulmonary follow-up visit. Overall he is feeling okay. Does complaint of increasing slight dyspnea on exertion. Is also some heaviness of the chest. The last time we spoke back in November with the patient has been doing well in his imaging studies have been stable altogether. We had decrease the mycophenolate with the plans a repeating the CAT scan. To see if he can tolerate less medicine. However, prior to that the patient had a fall and subsequently had a chest x-ray that was considered abnormal. This was not an urgent care. Then he had the scheduled CAT scan. I did get the copies and I did personally review the CAT scan. There sleep appears to be interval worsening of the airspace disease now more bilateral progressive. Appears to be more consistent with progression of the sarcoidosis. Therefore explained to the patient that he does need the higher dose medication. Will plan to give him some steroids as well increase the mycophenolate to 2 g twice a day. Will plan to repeat a CAT scan in couple months and make sure that there is interval improvement of the airspace disease. If he continues to have abnormal findings will have to re-evaluate and consider further diagnostic interventions. But overall he is doing okay. Will go ahead and add additional medication and follow-up after the CAT scan. If he has any issues prior to this he will call for an earlier assessment. 07/25/2025 the patient is here for pulmonary follow-up visit. Overall the patient is feeling a little bit better. He has completed the prednisone. He continues on the CellCept 2 g a day. Tolerating it well. He had blood work at [place]. I do not have those results right now. He is also followed up with Cardiology. I believe he is scheduled for cardiac PET to assess for cardiac sarcoid. We did review his pulmonary function studies demonstrating actual interval improvement in his lung capacity with a total lung capacity improved from 64% predicted to now 78% predicted and now normalized diffusing capacity. This is when compared to 2020. Therefore the results are reassuring. He did have a CT scan of the chest. I did request the images. For now it appears that his disease state is stable. Indeed he does have some slight progression when compared to previous years, but, stable when compared to a couple months ago. Will go ahead and follow-up with Cardiology. Right now he is in a good regimen will continue. He is off prednisone. He has issues with diabetes. If indeed he has any evidence of cardiac sarcoid the next step will be to start Remicade. [facility] Medical History (Updated 08/24/22 @ 10:40 by Johan Emmanuel MD) Pulmonary nodules ILD (interstitial lung disease) Asthma Chronic restrictive lung disease Sarcoidosis Social History Patient Tobacco Use Status: Never used Tobacco Review of Systems Const Denies night sweats Eyes Reports no additional complaints ENT Denies change in voice, Denies lip swelling, Denies mouth pain, Reports nasal congestion, Reports nasal discharge, Denies neck pain and Denies tongue swelling Card Denies chest pain and Reports dyspnea on exertion Resp Denies cough and Reports dyspnea on exertion GI Denies abdominal pain and Denies belching Musc Denies neck pain Neuro Denies Neuro-related abnormal movements Psych Denies no additional complaints Tayo/Lymph Denies easy bleeding and Denies lymphadenopathy Aller/Immun Denies lip swelling and Denies tongue swelling Physical Exam Vital Signs: Last Vital Signs Pulse 82 07/25/25 08:20 BP 124/66 07/25/25 08:20 Pulse Ox 97 07/25/25 08:20 Oxygen Delivery Method Room Air 07/25/25 08:20 BMI result Body Mass Index 24.8 Const General: alert Neck Neck: Yes normal visual inspection, Yes full ROM and Yes no lymphadenopathy Chest Chest palpation & inspection: normal inspection of the chest Resp Effort & Inspection: normal respiratory effort Auscultation: diminished lung sounds Cardio Rate: regular rate Rhythm: regular rhythm Heart sounds: S1 normal heart sound present and S2 normal heart sound present GI Palpation (GI): Soft to palpation and nontender Auscultation: normal bowel sounds Skin General skin exam: rashes and/or lesions noted Assessment & Plan Assessment & Plan (1) Sarcoidosis: Code(s): D86.9 - Sarcoidosis, unspecified Category: Medical (2) ILD (interstitial lung disease): Code(s): J84.9 - Interstitial pulmonary disease, unspecified Category: Medical (3) Asthma: Code(s): J45.909 - Unspecified asthma, uncomplicated Category: Medical Qualifiers: Asthma complication type: uncomplicated Asthma persistence: intermittent Asthma severity: mild Qualified Code(s): J45.20 - Mild intermittent asthma, uncomplicated (4) Chronic restrictive lung disease: Code(s): J98.4 - Other disorders of lung Category: Medical (5) Pneumonitis: Code(s): J18.9 - Pneumonia, unspecified organism Category: Medical (6) Pulmonary nodules: Code(s): R91.8 - Other nonspecific abnormal finding of lung field Category: Medical Plan Mycophenalate 1000mg BID consider Remicade if any evidence of cardiac sarcoid PETER as needed F/U 3 months, call if worsens Coding Level of Care Code Est Pt Level 4 (45457) Diagnoses Sarcoidosis D86.9 ILD (interstitial lung disease) J84.9 Mild intermittent asthma without complication J45.20 Asthma complication type: uncomplicated Asthma persistence: intermittent Asthma severity: mild Chronic restrictive lung disease J98.4 Pneumonitis J18.9 Pulmonary nodules R91.8 Time Spent (min) 17
--- OUTSIDE RECORDS SUMMARY | 2025-07-25 08:22 | XMS_ITS | Clinical Summary ---
Author Organization [facility] Address [address] [place] [address] Phone Care Team Providers Care Superintendent Communications Name Role Phone Adrienne Ortega NP Primary Care Provider [phone] Allergies No known active allergies Medications aspirin 81 mg EC tablet Take 1 tablet (81 mg total) by mouth. Active multivit-min/iro n/folic acid/K (ADULTS MULTIVITAMIN ORAL) Take by mouth. Activ e NIFEdipine (bulk) in white petrolatum ointment Apply 1 Application topically 3 (three) times a day. Apply a pea-sized amount of 0.2% nifedipine ointment to perianal region 3 times a day for treatment of anal fissures 90 g 1 10/19/19 25 026 Active Additional Information Patient not taking.Reported on 06/12/2025 glipiZIDE (GLUCOTROL XL) 10 mg 24 hr [...] time each day. 90 tablet 1 04/25/20 25 Active mycophenolate (CELLCEPT) 500 mg tabletIndication s:Pulmonary sarcoidosis (CMS/HCC V24) Take 2 tablets (1,000 mg total) by mouth 2 (two) times a day. Take 1 Tablet by mouth 2 times daily. 120 each 5 04/25/20 25 026 Active predniSONE (DELTASONE) 10 mg tablet Take 1 tablet (10 mg total) by mouth 1 (one) time each day. 04/24/20 25 Active fenofibrate (TRICOR) 145 mg tablet TAKE ONE TABLET BY MOUTH EVERY DAY 30 tablet 5 05/15/20 25 Active Jardiance 25 mg tablet TAKE ONE TABLET BY MOUTH IN THE MORNING 90 tablet 1 06/15/20 25 Active omeprazole (PriLOSEC) [address] capsule Take 1 capsule (40 mg total) by mouth 2 (two) times a day. 180 capsule 1 07/12/20 25 Active omeprazole (PriLOSEC) [address] capsule Take 1 capsule (40 mg total) by mouth 2 (two) times a day. 03/23/20 25 025 Discontin ued(Reord er) Active Problems Problem Noted Date Diagnosed Date Premature atrial contractions 06/12/2025 Premature ventricular contractions 06/12/2025 Mixed hyperlipidemia 04/25/2025 Nontraumatic complete tear of [...] and tried PT at outpt PT at [facility] with a little improvement. He [...] He had a C/S MRI 03/01/24 at [facility] that shows C6-7 degenerative disc [...] Cervical spondylosis 03/07/2024 Type 2 diabetes mellitus 10/26/2022 Type 2 diabetes mellitus 10/26/2022 Chronic obstructive pulmonary disease 04/01/2017 Lymphadenopathy 04/01/2017 Pulmonary sarcoidosis 04/01/2017 Syncope 04/01/2017 Chronic obstructive pulmonary disease 04/01/2017 Lymphadenopathy 04/01/2017 Pulmonary sarcoidosis 04/01/2017 Syncope 04/01/2017 Anxiety 02/10/2017 Gastroesophageal reflux disease 02/10/2017 Anxiety 02/10/2017 Gastroesophageal reflux disease 02/10/2017 Encounters Date Type Department Care Team Description 07/09/2025 8:30 AM EST Ancillary Procedure [facility] - [address] [place] [address] Premature atrial contractions; Premature ventricular contractions; Pulmonary sarcoidosis (CMS/HCC V24) 07/03/2025 9:14 AM EST - 07/03/2025 11:59 PM EST Hospital Encounter [facility] CT Scan [address] [place] [phone] Pneumonia due to infectious organism, unspecified laterality, unspecified part of lung Discharge Disposition: Home or Self Care 06/21/2025 Telephone [facility] - [address] [place] [phone] Ted Arzola MD 06/12/2025 9:20 AM EST Office Visit [facility] - [address] [place] [phone] Ted Arzola MD Premature atrial contractions (Primary Dx); Premature ventricular contractions; Pulmonary sarcoidosis (CMS/HCC V24) 05/28/2025 8:45 AM EDT Office Visit General Surgery - [place] [address] [facility] [address] [place] [phone] Laith Raymond MD Ulcer of perianal area, limited to breakdown of skin (CMS/HCC V24, CMS/HCC V28) (Primary Dx); Anal pain 05/15/[address] [place] [phone] Adrienne Ortega NP 05/09/2025 5:12 PM EDT - 05/09/2025 5:45 PM EDT Emergency [facility] Emergency [address] [place] [phone] Johnny Syed MD Encounter for medical screening examination (Primary Dx); Atypical chest pain; Abnormal electrocardiogram; Hyperglycemia; Elevated BUN; Pulmonary sarcoidosis (CMS/HCC V24) Discharge Disposition: Home or Self Care 05/09/2025 10:30 AM EDT [facility] [address] [facility] [place] [phone] Adrienne Ortega NP Weakness (Primary Dx); Other fatigue; Polyarthralgia; Tightness in chest; Pulmonary sarcoidosis ([facility] V24); Abnormal EKG; PVC (premature ventricular contraction); ST elevation 05/09/2025 Results Follow-Up Internal Medicine - [address] [phone] Adrienne Ortega NP 04/30/2025 Telephone Orthopedic Surgery [facility] [address] [phone] Aleisha Johansen [place] 04/30/2025 Telephone Orthopedic Surgery [facility] [address] [phone] Nathalia Young 04/25/2025 10:45 AM EDT Lab Draw Station [address] Mixed hyperlipidemia; Type 2 diabetes mellitus without complication, without long-term current use of insulin ([facility] [place], [facility] V28) 04/25/2025 10:30 AM EDT Office Visit Internal Medicine - [address] [phone] Adrienne Ortega NP Type 2 diabetes mellitus without complication, without long-term current use of insulin ([facility] V24, [facility] V28) (Primary Dx); Pulmonary sarcoidosis ([facility] V24); Gastroesophageal reflux disease without esophagitis; Anxiety; Mixed hyperlipidemia; Immunization due from Last 3 Months Immunizations Immunization Administration [...] 02/10/2017 DX:Anxiety Chronic obstructive pulmonar y disease ([facility] V24, [facility] V28) 04/01/2017 DX:Chronic obstructive pulm onary disease (HCC) Gastroesophageal reflux disease 02/10/2017 DX:Gastroesophageal reflux disease Lymphadenopathy 04/01/2017 DX:Lymphadenopat hy Syncope 04/01/2017 DX:Syncope Pulmonary sarcoidosis ([facility] V24) 04/01/2017 DX:Pulmonary sarcoidosis (HCC) DM (diabetes mellitus) ([facility] V24, [facility] V28) DX:DM (diabetes mellitus) (H CC) Anal fissure Family History Medical History Relation Name Comments Diabetes Mother Breast cancer Sister 1 Colon cancer Sister 2 Relation Name Status Comments Mother Sister 1 Sister 2 Alive Social History Tobacco Use Types Packs/Day Years Used Date Smoking Tobacco: Former Cigarettes 1 Q uit: 08/09/1982 Alcohol Use Standard Drinks/Week Comments Not Currently 0 (1 standard drink = 0.6 oz pur e alcohol) Sex and Gender Information Value Date Recorded Sex Assigned at Male 03/06/2025 11:10 AM EDT Legal Sex Male 12:49 PM EST Gender Identity Male 03/06/2025 11:10 AM EDT Sexual Orientation Straight 03/06/2025 11 :10 AM EDT Last Filed Vital Signs Vital Sign Reading Time Taken Comments Blood Pressure 137/87 07/09/2025 8:59 AM EST Pulse 89 06/12/2025 9:20 AM EST Temperature 36.9 C (98.4 F) 05/09/2025 2:16 PM EDT Respiratory Rate 16 05/09/2025 2:16 PM EDT Oxygen Saturation 97% 06/12/2025 9:20 AM EST Inhaled Oxygen Concentration - - Weight 77.1 kg (170 lb) 07/09/2025 8:59 AM EST Height 177.8 cm (5' 10 ) 07/09/2025 8:59 AM EST Body Mass Index 24.39 07/09/2025 8:59 AM EST Plan of Treatment Upcoming Encounters Date Type Department Care Team (Late st Contact Info) Description 09/10/2025 8:15 AM EST Office Visit General Surgery - [place] [address] [place] [phone] Laith Raymond MD [address] [place] [phone] 11/13/2025 9:00 AM EDT [facility] [address] [place] [address] Adrienne Ortega NP [address] [place] [address] Health Maintenance Due Date Last Done Comments Drug Screen 06/11/1956 Non-Opioid Controlled Substance Agreement 06/11/1956 DTaP,Tdap,and Td Vaccines (1 - Tdap) 06/11/1975 Zoster Vaccines (1 of 2) 06/11/1975 RSV Immunization Adult Patients (1 - Risk 50-74 years 1-dose series) 06/11/2006 Medicare Annual Wellness Visit 07/07/2022 Social Influencers [...] Procedure Name Priority Date/Time Associated Diagnosis Comments TRANSTHORACIC ECHOCARDIOGRAM (TTE) COMPLETE Routine 07/09/2025 8:59 AM EST Premature atrial contractions Premature ventricular contractions Pulmonary sarcoidosis (CMS/HCC V24) CT CHEST WO CONTRAST Routine 07/03/2025 9:41 AM EST Pneumonia due to infectious organism, unspecified laterality, unspecified part of lung ECG ANNOTATED 05/10/2025 XR CHEST 2 VIEWS [...] Routine 04/25/2025 10:39 AM EDT Mixed hyperlipidemia MICROALBUMIN CREATININE URINE RATIO Routine 11/06/2024 10:21 AM EDT Type 2 diabetes mellitus without complication, without long-term current use of insulin (CMS/HCC V24, CMS/HCC V28) DEPRESSION SCREENING Routine 10/11/2023 FALLS RISK ASSESSMENT Routine 10/11/2023 DIABETES FOOT EXAM Routine 10/11/2023 HM HEPATITIS C SCREENING Routine 05/21/2023 HM COLONOSCOPY Routine 09/10/2021 from Last 3 Months or Most Recently Relevant to Health Maintenance Results * TRANSTHORACIC ECHOCARDIOGRAM (TTE) COMPLETE (07/09/2025 8:59 AM EST) Left Atrium Minor [place] 5.3 cm CV PACS Left Atrium Major [place] 5.9 cm CV PACS LA Area Sys (A2C) 20 cm2 CV PACS LA Area Sys (A4C) 18 cm2 CV PACS LA Volume (BP) 57 mL CV PACS RA Area 17.1 cm2 CV PACS RA 2D Volume 45 mL CV PACS AV Mean Gradient 5 mmHg CV PACS Ao VTI 31.7 cm CV PACS AV Peak Drew 1.6 m/s CV PACS AV Peak Gradient 11 mmHg CV PACS AV Area Continuity Equation 2.3 cm2 CV PACS AV Area Peak Velocity 2.4 cm2 CV PACS Aortic Sinus Valsalva 3.8 cm CV PACS Ascending Aorta 3.5 cm CV PACS IVSD 1.0 0.6 - 1.0 cm CV PACS LVIDD 4.7 4.2 - 5.8 cm CV PACS LVIDS 2.9 2.5 - 4.0 cm CV PACS LVOT Diameter 2.1 cm CV PACS LVOT Mean Drew 0.7 m/s CV PACS LVOT Mean Grad 2 mmHg CV PACS LVOT Mean Grad 2 mmHg CV PACS LVOT Mean Grad 2 mmHg CV PACS LVOT Mean Grad 2 mmHg CV PACS LVOT Peak VTI 21.3 cm CV PACS LVOT Peak Drew 1.1 m/s CV PACS LVOT Peak Gradient 5 mmHg CV PACS LVPWD 1.0 0.6 - 1.0 cm CV PACS MV E' Tissue Velocity Lateral 12 cm/s CV PACS MV E' Tissue Velocity Septal 5 cm/s CV PACS LVOT Area 3.5 cm2 CV PACS LVOT Stroke Volume 74 mL CV PACS MV Deceleration [place] 3.1 m/s2 CV PACS E Wave Deceleration Time 211 119 - 242 ms CV PACS MV PHT 62 ms CV PACS MV Peak A Drew 0.64 m/s CV PACS MV Peak E Drew 0.66 m/s CV PACS MV Mean Gradient 2 mmHg CV PACS MV VTI 25.1 cm CV PACS Mitral Valve Max Velocity 0.9 m/s CV PACS MV Peak Gradient 3 mmHg CV PACS MV Area PHT 3.6 cm2 CV PACS MV Area Continuity Equation 2.9 cm2 CV PACS PV Acceleration Time 81 ms CV PACS PV Acceleration Time 95 ms CV PACS PV Acceleration Time 88 ms CV PACS RV Diastolic Basal Dimension 3.2 2.5 - 4.1 cm CV PACS RV S' 15 cm/s CV PACS TAPSE 21 mm CV PACS TR Peak Velocity 2.79 m/s CV PACS TR Peak Gradient 31 mmHg CV PACS E/E' Ratio Septal 13 CV PACS E/E' Ratio Averaged 9 CV PACS Relative Wall Thickness ratio 0.43 CV PACS LVOT:AV VTI Index 0.67 CV PACS FS 38 % CV PACS LV Mass 2D 164 g CV PACS MV VTI:LVOT VTI ratio 1.2 CV PACS LVOT flow 242 mL/s CV PACS AV Velocity Ratio 0.69 CV PACS E/A Ratio 1.0 CV PACS E/E' Ratio Lateral 6 CV PACS BSA 1.95 m2 CV PACS LVOT Stroke Index 38 mL/m2 CV PACS Ascending Aorta Index 1.79 cm/m2 CV PACS RA 2D Volume Index 23 mL/m2 CV PACS XIOMARA Index (VTI) 1.19 cm2/m2 CV PACS XIOMARA Index (Pk Drew) 1.23 cm2/m2 CV PACS LVIDD Index 2.41 cm/m2 CV PACS LVIDS Index 1.49 cm/m2 CV PACS LA Volume Index (BP) 29 mL/m2 CV PACS LV Mass Index 2D 84 g/m2 CV PACS Right Ventricular Peak Systolic Pressure 34 mmHg CV PACS Est. RA Pressure 3 mmHg CV PACS Anatomical Region Laterality Modality Ultrasound Narrative 07/10/2025 2:54 PM EST Normal LV wall thickness and internal chamber dimensions. Normal systolic function with an EF of 55 to 60%. Normal parameters of diastolic function. Normal diastolic function. Normal RV size and function. Normal left and right atrium Mild TR with normal estimated peak PA systolic pressure. No other significant valvular abnormality. No prior echo for comparison. Left Ventricle Left ventricle cavity size is normal. Wall thickness is normal. Systolic function is normal with an ejection fraction of 55-60%. There are no regional LV wall motion abnormalities. There is no diastolic dysfunction. Right Ventricle Right ventricle cavity appears normal. Systolic function is normal. Left Atrium Left atrium cavity size is normal. Right Atrium Right atrium cavity is normal. IVC/SVC Inferior vena cava structure is normal. RA pressures is estimated to be 3 mmHg (IVC diameter <21 mm and decreases >50% during inspiration). Mitral Valve The leaflets are mildly thickened. There is trace regurgitation. There is no evidence of mitral valve stenosis. Tricuspid Valve Tricuspid valve structure is normal. There is mild regurgitation. There is no evidence of tricuspid valve stenosis. The RVSP is estimated at 34 mmHg. Aortic Valve The aortic valve is trileaflet. The leaflets are mildly thickened. There is no regurgitation or stenosis. Pulmonic Valve Visualized portions of the pulmonic valve appear normal. There is trace pulmonic valve regurgitation. There is no evidence of pulmonic valve stenosis. Ascending Aorta The aorta appears normal in size. Pericardium Pericardium appears normal. There is no pericardial effusion. Study Details Overall the study quality was adequate. Wall Scoring Baseline Score Index: 1.00 The left ventricular wall motion is normal. us Ted Arzola MD CV ECHO PROCEDURES Final Result * CT Chest wo Contrast (07/03/2025 9:41 AM EST) Anatomical Region Laterality Modality Body Computed Tomogra phy 07/13/2025 9:23 AM EST Impressions 07/13/2025 9:47 AM EST Extensive fairly diffuse bilateral lung disease with areas of consolidation. Probably no significant change when compared to most recent previous. There may be slight interval worsening when compared to 05/10/23. -------- FINAL REPORT -------- Dictated By: Pablo Kim Dictated Date: 07/13/2025 09:23 ET Assigned Physician: Pablo Kim Reviewed and Electronically Signed By: Pablo Kim Signed Date: 07/13/2025 09:47 ET Workstation ID: [id number] Transcribed By: Self Edit Transcribed Date: 07/13/2025 09:23 ET Narrative 07/13/2025 9:47 AM EST EXAMINATION: CT CHEST WITHOUT CONTRAST CLINICAL INFORMATION: Pulmonary interstitial disease. Sarcoidosis COMPARISON: Portions of a previous CT 03/28/25 TECHNIQUE: Multidetector CT. Examination of the chest. A prone series was also performed. Examination of the chest without IV contrast. Reformatting in the coronal and sagittal planes. DLP: 467 mGy-cm Dose optimization was performed including the use of low-dose iterative reconstruction technique with automatic exposure control based on patient size. Type of contrast: None Volume of IV contrast: None Volume of contrast discarded: 0 mL FINDINGS: LUNG: There is no suspicious abnormality of the trachea or mainstem bronchi. There are several unchanged small nodules. There are extensive areas of consolidation with airspace opacities bilaterally. Loan Review Officer areas of consolidation in the axial plane; Posterior central right upper lobe 07/03/25-1.1 cm (/87) 03/28/25-1.1 cm () 05/10/23-not measurable Consolidation in the middle lobe 07/03/25-5.2 cm (5/139) 03/28/25-5.3 cm (5/141) 05/10/23-4.1 cm (4/146) Consolidation in the posterior right lower lobe 07/03/25-6.4 cm (5/155) 03/28/25-6.3 cm (5/156) 05/10/23-6.8 cm (4/164) Peripheral consolidation lateral left upper lobe 07/03/25-5.5 cm (5/108) 03/28/25-6.0 cm (5/117) 05/10/23-4.3 cm (4/122) Subjectively, no significant change when compared to most recent previous but slight interval worsening when compared to 05/10/23. There are a few peripheral reticular opacities which slightly improved with prone imaging. There is no honeycomb formation. MEDIASTINUM: No convincing change in prominent lymph nodes. Loan Review Officer right paratracheal lymph node 07/03/25-1.3 cm (3/46) 03/28/25-1.2 cm (3/49) 05/10/23-1.3 cm (4/54) There are surgical clips at the base of the neck anteriorly. No change in left internal mammary lymph nodes. CARDIAC: No cardiac mass. No pericardial fluid or significant thickening. CORONARY CALCIFICATION: There are mild coronary calcifications. VASCULAR: There is no thoracic aortic aneurysm. The main pulmonary artery is normal caliber. PLEURA: There is no pleural fluid or pneumothorax. There may be some mild pleural thickening. AXILLA/CHEST WALL: There are no enlarged axillary lymph nodes. No chest wall mass demonstrated. Slightly more numerous than expected level 2 left axillary lymph nodes are unchanged. VISUALIZED UPPER ABDOMEN: No suspicious abnormality on limited assessment of the visualized upper abdomen. There are some nonspecific pericardiophrenic and upper abdominal lymph nodes. MUSCULOSKELETAL: No suspicious focal bony lesion. There is an apparently new superior endplate compression deformity of likely L1. Procedure Note Pablo Kim MD - 07/13/2025 EXAMINATION: CT CHEST WITHOUT CONTRAST CLINICAL INFORMATION: Pulmonary interstitial disease. Sarcoidosis COMPARISON: Portions of a previous CT 03/28/25 TECHNIQUE: Multidetector CT. Examination of the chest. A prone series was alsoperformed. Examination of the chest without IV contrast. Reformatting in the coronal and sagittal planes. DLP: 467 mGy-cm Dose optimization was performed including the use of low-dose iterativereconstruction technique with automatic exposure control based on patientsize. Type of contrast: None Volume of IV contrast: None Volume of contrast discarded: 0 mL FINDINGS: LUNG: There is no suspicious abnormality of the trachea or mainstembronchi. There are several unchanged small nodules. There are extensive areas of consolidation with airspace opacitiesbilaterally. Loan Review Officer areas of consolidation in the axial plane; Posterior central right upper lobe 07/03/25-1.1 cm (87) 03/28/25-1.1 cm (/) 05/10/23-not measurable Consolidation in the middle lobe 07/03/25-5.2 cm (5/139) 03/28/25-5.3 cm (5/141) 05/10/23-4.1 cm (4/146) Consolidation in the posterior right lower lobe 07/03/25-6.4 cm (5/155) 03/28/25-6.3 cm (5/156) 05/10/23-6.8 cm (4/164) Peripheral consolidation lateral left upper lobe 07/03/25-5.5 cm (5/108) 03/28/25-6.0 cm (5/117) 05/10/23-4.3 cm (4/122) Subjectively, no significant change when compared to most recent previousbut slight interval worsening when compared to 05/10/23. There are a few peripheral reticular opacities which slightly improvedwith prone imaging. There is no honeycomb formation. MEDIASTINUM: No convincing change in prominent lymph nodes. Loan Review Officer right paratracheal lymph node 07/03/25-1.3 cm (3/46) 03/28/25-1.2 cm (3/49) 05/10/23-1.3 cm (4/54) There are surgical clips at the base of the neck anteriorly. No change in left internal mammary lymph nodes. CARDIAC: No cardiac mass. No pericardial fluid or significantthickening. CORONARY CALCIFICATION: There are mild coronary calcifications. VASCULAR: There is no thoracic aortic aneurysm. The main pulmonary arteryis normal caliber. PLEURA: There is no pleural fluid or pneumothorax. There may be some mildpleural thickening. AXILLA/CHEST WALL: There are no enlarged axillary lymph nodes. No chestwall mass demonstrated. Slightly more numerous than expected level 2 leftaxillary lymph nodes are unchanged. VISUALIZED UPPER ABDOMEN: No suspicious abnormality on limited assessmentof the visualized upper abdomen. There are some nonspecificpericardiophrenic and upper abdominal lymph nodes. MUSCULOSKELETAL: No suspicious focal bony lesion. There is an apparentlynew superior endplate compression deformity of likely L1. IMPRESSION: Extensive fairly diffuse bilateral lung disease with areas ofconsolidation. Probably no significant change when compared to most recent previous. There may be slight interval worsening when compared to 05/10/23. -------- FINAL REPORT -------- Dictated By: Pablo Kim Dictated Date: 07/13/2025 09:23 ET Assigned Physician: Pablo Kim Reviewed and Electronically Signed By: Pablo Kim Signed Date: 07/13/2025 09:47 ET Workstation ID: [id number] Transcribed By: Self Edit Transcribed Date: 07/13/2025 09:23 ET us Johan Emmanuel MD IMG CT PROCEDURES Final Re sult * ECG-Annotated (05/10/2025) us Provider Onbase ECG ORDERABLES Final Result * XR Chest [...] Signed Date: 05/10/2025 08:48 ET Workstation ID: [id number] Transcribed By: Self Edit Transcribed Date: 05/10/2025 [...] Signed Date: 05/10/2025 08:48 ET Workstation ID: [id number] Transcribed By: Self Edit Transcribed Date: 05/10/2025 08:42 ET Johnny Syed MD IMG XR PROCEDURES Final Result * RHYTHM ECG, REPORT (05/09/2025 5:06 PM EDT) Only the most recent of2 resultswithin the time period is included. Johnny Madsen MD - 05/09/2025 5:06 PM EDT Johnny Syed MD 05/09/2025 5:41 PM ECG Rhythm Interpretation and Report Date/Time: 05/09/2025 5:06 PM Performed by: Johnny Syed MD Authorized by: Johnny Syed MD ECG interpreted by ED Physician in the absence of a prescription benefit specialist: yes Previous ECG: Previous ECG: Compared to [...] of3 resultswithin the time period is included. Ventricular Rate ECG 82 BPM GEMUSE Atrial Rate 82 BPM GEMUSE P-R Interval 192 ms GEMUSE QRS Duration 96 ms GEMUSE Q-T Interval 372 ms GEMUSE QTc 434 ms GEMUSE P Wave [place] 17 degrees GEMUSE R [place] -27 degrees GEMUSE T [place] 34 degrees GEMUSE ECG Interpretation Sinus rhythm [...] of2 resultswithin the time period is included. [facility] High Sensitivity Troponin I 3 <=79 ng/L LAB CHEMISTRY METHOD 05/09/2025 5:33 PM EDT [facility] Blood Venous blood specimen / Unknown Venipuncture / Unknown 05/09/2025 4:48 PM EDT 05/09/2025 4:55 PM EDT Narrative [facility] - 05/09/2025 5:33 PM EDT High levels of biotin in samples may falsely decrease hsTroponin values. Use caution when interpreting hsTroponin results in patients taking biotin who exhibit renal impairment (eGFR <60) or in patients taking more than 20 mg/day of biotin. us Johnny Syed MD LAB BLOOD ORDERABLES Final Res ult Performing Organization Address City/[facility]/ZIP Co de Phone Number [facility] [address] [place] [address], [place] [phone] * (ABNORMAL) CBC auto differential (05/09/2025 2:32 PM EDT) Only the most recent of2 resultswithin the time period is included. Pathologist [facility] WBC 5.6 4.8 - 10.8 K/[facility] LAB HEMETOLOGY METHOD 05/09/2025 3:02 PM EDT [facility] RBC 5.20 4.50 - 5.50 M/[facility] LAB HEMETOLOGY METHOD 05/09/2025 3:02 PM [facility] Hemoglobin 16.1 13.5 - 17.5 g/dL LAB HEMETOLOGY METHOD 05/09/2025 3:02 PM [facility] Hematocrit 46.5 42.0 - 54.0 % LAB HEMETOLOGY METHOD 05/09/2025 3:02 PM [facility] MCV 89.9 79.0 - 98.0 FL LAB HEMETOLOGY METHOD 05/09/2025 3:02 PM [facility] MCH 31.1 27.0 - 32.0 pcg LAB HEMETOLOGY METHOD 05/09/2025 3:02 PM [facility] MCHC 34.6 32.0 - 37.0 g/dL LAB HEMETOLOGY METHOD 05/09/2025 3:02 PM [facility] RDW 13.4 11.0 - 15.0 % LAB HEMETOLOGY METHOD 05/09/2025 3:02 PM [facility] Platelets 172 130 - 400 K/mcL LAB HEMETOLOGY METHOD 05/09/2025 3:02 PM [facility] MPV 9.2 7.0 - 11.0 FL LAB HEMETOLOGY METHOD 05/09/2025 3:02 PM [facility] NRBC 0.0 <1.0 % LAB HEMETOLOGY METHOD 05/09/2025 3:02 PM [facility] NRBC Absolute 0.00 <0.10 K/mcL LAB HEMETOLOGY METHOD 05/09/2025 3:02 PM [facility] Neutrophils Relative 86.1 % LAB HEMETOLOGY METHOD 05/09/2025 3:02 PM [facility] Lymphocytes Relative 7.6 % LAB HEMETOLOGY METHOD 05/09/2025 3:02 PM [facility] Monocytes Relative 4.8 % LAB HEMETOLOGY METHOD 05/09/2025 3:02 PM EDT [facility] Eosinophils Relative 0.4 % LAB HEMETOLOGY METHOD 05/09/2025 3:02 PM EDT [facility] Basophils Relative 0.2 % LAB HEMETOLOGY METHOD 05/09/2025 3:02 PM EDT [facility] Immature Granulocytes Relative 0.9 % LAB HEMETOLOGY METHOD 05/09/2025 3:02 PM EDT [facility] Neutrophils Absolute 4.85 1.50 - 7.00 K/mcL LAB HEMETOLOGY METHOD 05/09/2025 3:02 PM EDT [facility] Lymphocytes Absolute 0.43(L) 1.00 - 5.00 K/mcL LAB HEMETOLOGY METHOD 05/09/2025 3:02 PM EDT [facility] Monocytes Absolute 0.27 0.20 - 1.00 K/mcL LAB HEMETOLOGY METHOD 05/09/2025 3:02 PM EDT [facility] Eosinophils Absolute 0.02 0.00 - 0.50 K/mcL LAB HEMETOLOGY METHOD 05/09/2025 3:02 PM T [facility] Basophils Absolute 0.01 0.00 - 0.20 K/mcL LAB HEMETOLOGY METHOD 05/09/2025 3:02 PM EDT [facility] Immature Granulocytes Absolute 0.05(H) 0.00 - 0.03 K/mcL LAB HEMETOLOGY METHOD 05/09/2025 3:02 PM T [facility] Blood Venous blood specimen / Unknown Venipuncture / Unknown 05/09/2025 2:32 PM EDT 05/09/2025 2:50 PM EDT us Johnny Syed MD LAB BLOOD ORDERABLES Final Res ult [facility] [address] [place] [address], [place] [phone] * B-type natriuretic peptide (05/09/2025 2:32 PM EDT) [facility] BNP 12 <=100 pcg/mL LAB CHEMISTRY METHOD 05/09/2025 4:00 PM EDT [facility] Blood Venous blood specimen / Unknown Venipuncture / Unknown 05/09/2025 2:32 PM EDT 05/09/2025 2:50 PM EDT us Johnny Syed MD LAB BLOOD ORDERABLES Final Res ult Performing Organization Address [facility]/ZIP Co de Phone Number [facility] [address] [place] [address], [place] [phone] * Magnesium (05/09/2025 2:32 PM EDT) Only the most recent of2 resultswithin the time period is included. [facility] Magnesium 2.2 1.9 - 2.6 mg/dL LAB CHEMISTRY METHOD 05/09/2025 3:36 PM EDT [facility] Blood Venous blood specimen / Unknown Venipuncture / Unknown 05/09/2025 2:32 PM EDT 05/09/2025 2:50 PM EDT us Johnny Syed MD LAB BLOOD ORDERABLES Final Res ult [facility] [address] [place] [address], [place] [phone] * Lipase (05/09/2025 2:32 PM EDT) [facility] Lipase 53 13 - 75 unit/L LAB CHEMISTRY METHOD 05/09/2025 3:36 PM EDT [facility] Blood Venous blood specimen / Unknown Venipuncture / Unknown 05/09/2025 2:32 PM EDT 05/09/2025 2:50 PM EDT us Johnny Syed MD LAB BLOOD ORDERABLES Final Res ult [facility] [address] [place] [address], [place] [phone] * (ABNORMAL) Comprehensive metabolic panel (05/09/2025 2:32 PM EDT) Sodium 132(L) 133 - 145 mmol/L LAB CHEMISTRY METHOD 05/09/2025 3:50 PM EDT [facility] Potassium 4.7 3.5 - 5.5 mmol/L LAB CHEMISTRY METHOD 05/09/2025 3:50 PM EDT [facility] Chloride 101 96 - 110 mmol/L LAB CHEMISTRY METHOD 05/09/2025 3:50 PM EDT [facility] CO2 23 21 - 32 mmol/L LAB CHEMISTRY METHOD 05/09/2025 3:50 PM EDT [facility] Anion Gap 8 3 - 11 LAB CHEMISTRY METHOD 05/09/2025 3:50 PM EDT [facility] Glucose 334(H) 70 - 100 mg/dL LAB CHEMISTRY METHOD 05/09/2025 3:50 PM [facility] BUN 26(H) 5 - 25 mg/dL LAB CHEMISTRY METHOD 05/09/2025 3:50 PM EDT [facility] Creatinine 0.96 0.70 - 1.30 mg/dL LAB CHEMISTRY METHOD 05/09/2025 3:50 PM EDT [facility] eGFR 86 >=60 mL/min/1. 73m2 LAB CHEMISTRY METHOD 05/09/2025 3:50 PM EDT [facility] Comment:Calculation based on the Chronic Kidney Disease Epidemiology Collaboration (CKD-EPI) equation refit without adjustment for race. BUN/Creatinine Ratio 27.1 LAB CHEMISTRY METHOD 05/09/2025 3:50 PM EDT [facility] Calcium 9.4 8.5 - 10.5 mg/dL LAB CHEMISTRY METHOD 05/09/2025 3:50 PM EDT [facility] AST (SGOT) 22 10 - 42 unit/L LAB CHEMISTRY METHOD 05/09/2025 3:50 PM EDT [facility] ALT (SGPT) 59 10 - 60 unit/L LAB CHEMISTRY METHOD 05/09/2025 3:50 PM EDT [facility] Alkaline Phosphatase 107 42 - 121 unit/L LAB CHEMISTRY METHOD 05/09/2025 3:50 PM EDT [facility] Total Protein 6.6 6.0 - 8.0 g/dL LAB CHEMISTRY METHOD 05/09/2025 3:50 PM EDT [facility] Albumin 3.9 3.2 - 5.0 g/dL LAB CHEMISTRY METHOD 05/09/2025 3:50 PM EDT [facility] Total Bilirubin 0.7 0.0 - 1.4 mg/dL LAB CHEMISTRY METHOD 05/09/2025 3:50 PM EDT [facility] Blood Venous blood specimen / Unknown Venipuncture / Unknown 05/09/2025 2:32 PM EDT 05/09/2025 2:50 PM EDT us Johnny Syed MD LAB BLOOD ORDERABLES Final Res ult [facility] [address] [place] [address], [place] [phone] * (ABNORMAL) Urinalysis with reflex microscopic and culture (05/09/2025 11:25 AM EDT) Specific [place] Urine 1.016 1.003 - 1.030 LAB URINALYSIS - AUTOMATED METHOD 05/09/2025 2:41 PM EDT [facility] pH, Urine 5.5 5.0 - 8.0 pH LAB URINALYSIS - AUTOMATED METHOD 05/09/2025 2:41 PM [facility] Leukocytes, Urine Negative Negative LAB URINALYSIS - AUTOMATED METHOD 05/09/2025 2:41 PM [facility] Nitrite, Urine Negative Negative LAB URINALYSIS - AUTOMATED METHOD 05/09/2025 2:41 PM [facility] Protein, Urine Negative <=Trace mg/dL LAB URINALYSIS - AUTOMATED METHOD 05/09/2025 2:41 PM [facility] Glucose, Urine >=1000(A) Negative mg/dL LAB URINALYSIS - AUTOMATED METHOD 05/09/2025 2:41 PM [facility] Ketones, Urine Negative Negative mg/dL LAB URINALYSIS - AUTOMATED METHOD 05/09/2025 2:41 PM [facility] Urobilinogen , Urine 0.2 0.2 - 1.0 mg/dL LAB URINALYSIS - AUTOMATED METHOD 05/09/2025 2:41 PM [facility] Bilirubin, Urine Negative Negative LAB URINALYSIS - AUTOMATED METHOD 05/09/2025 2:41 PM [facility] Blood, Urine Negative Negative LAB URINALYSIS - AUTOMATED METHOD 05/09/2025 2:41 PM [facility] Urine Urine specimen obtained by clean catch procedure / Unknown Non-blood Collection / Unknown 05/09/2025 11:25 AM EDT 05/09/2025 11:25 AM EDT us Adrienne Ortega NP LAB URINE ORDERABLES Final Resu lt [facility] [address] [place] [address], * Lopez urine culture tube (05/09/2025 11:25 AM EDT) Extra Tube Hold for add-ons. 05/09/2025 3:01 PM EDT [facility] Comment:Auto resulted. Urine Urine specimen obtained by clean catch procedure / Unknown Non-blood Collection / Unknown 05/09/2025 11:25 AM EDT 05/09/2025 11:25 AM EDT Adrienne Ortega LAB URINE ORDERABLES Final Resu lt Performing Organization Address [facility] Co de Phone Number [facility] [address] [place] [address], [place] [phone] * Thyroid stimulating hormone with reflex to free t4 and free t3 (05/09/2025 11:25 AM EDT) TSH 1.59 0.40 - 4.00 mcIU/mL LAB CHEMISTRY METHOD 05/09/2025 4:18 PM EDT [facility] Blood Venous blood specimen / Unknown Venipuncture / Unknown 05/09/2025 11:25 AM EDT 05/09/2025 11:25 AM EDT Adrienne Ortega [employer] LAB BLOOD ORDERABLES Final Resu lt Performing Organization Address [facility] de Phone Number [facility] [address] [place] [address], [place] [phone] * Iron and TIBC (05/09/2025 11:25 AM EDT) Iron 138 50 - 160 mcg/dL LAB CHEMISTRY METHOD 05/09/2025 4:11 PM EDT [facility] TIBC 320 250 - 450 mcg/dL LAB CHEMISTRY METHOD 05/09/2025 4:11 PM EDT [facility] Iron Saturation 43 20 - 50 % LAB CHEMISTRY METHOD 05/09/2025 4:11 PM EDT [facility] Blood Venous blood specimen / Unknown Venipuncture / Unknown 05/09/2025 11:25 AM EDT 05/09/2025 11:25 AM EDT us Adrienne Ortega NP LAB BLOOD ORDERABLES Final Resu lt [facility] [address] [place] [address], [place] [phone] * (ABNORMAL) Basic metabolic panel (05/09/2025 11:25 AM EDT) Only the most recent of2 resultswithin the time period is included. Sodium 136 133 - 145 mmol/L LAB CHEMISTRY METHOD 05/09/2025 4:11 PM [facility] Potassium 4.3 3.5 - 5.5 mmol/L LAB CHEMISTRY METHOD 05/09/2025 4:11 PM [facility] Chloride 102 96 - 110 mmol/L LAB CHEMISTRY METHOD 05/09/2025 4:11 PM [facility] CO2 24 21 - 32 mmol/L LAB CHEMISTRY METHOD 05/09/2025 4:11 PM [facility] Anion Gap 10 3 - 11 LAB CHEMISTRY METHOD 05/09/2025 4:11 PM [facility] Glucose 180(H) 70 - 100 mg/dL LAB CHEMISTRY METHOD 05/09/2025 4:11 PM [facility] BUN 26(H) 5 - 25 mg/dL LAB CHEMISTRY METHOD 05/09/2025 4:11 PM [facility] Creatinine 0.85 0.70 - 1.30 mg/dL LAB CHEMISTRY METHOD 05/09/2025 4:11 PM [facility] eGFR 95 >=60 mL/min/1. 73m2 LAB CHEMISTRY METHOD 05/09/2025 4:11 PM [facility] Comment:Calculation based on the Chronic Kidney Disease Epidemiology Collaboration (CKD-EPI) equation refit without adjustment for race. BUN/Creatinine Ratio 30.6 LAB CHEMISTRY METHOD 05/09/2025 4:11 PM EDT [facility] Calcium 9.6 8.5 - 10.5 mg/dL LAB CHEMISTRY METHOD 05/09/2025 4:11 PM EDT [facility] Blood Venous blood specimen / Unknown Venipuncture / Unknown 05/09/2025 11:25 AM EDT 05/09/2025 11:25 AM EDT us Adrienne Ortega [employer] LAB BLOOD ORDERABLES Final Resu lt [facility] [address] [place] [address], * (ABNORMAL) Lipid panel with reflex to direct LDL (04/25/2025 10:39 AM EDT) Cholesterol 169 0 - 200 mg/dL LAB CHEMISTRY METHOD 04/25/2025 5:04 PM [facility] Triglycerides 225(H) 0 - 150 mg/dL LAB CHEMISTRY METHOD 04/25/2025 5:04 PM [facility] HDL 37(L) >=40 mg/dL LAB CHEMISTRY METHOD 04/25/2025 5:04 PM [facility] LDL Calculated 87 0 - 100 mg/dL LAB CHEMISTRY METHOD 04/25/2025 5:04 PM [facility] Comment:Estimated LDL Calcul ated using equation: Total cholesterol - HDL cholesterol - (Triglycerides/5) VLDL Cholesterol Juan Antonio 45 mg/dL LAB CHEMISTRY METHOD 04/25/2025 5:04 PM [facility] Non HDL Chol. (LDL+VLDL) 132 <145 mg/dL LAB CHEMISTRY METHOD 04/25/2025 5:04 PM [facility] Chol/HDL Ratio 4.6(H) 0.0 - 4.4 LAB CHEMISTRY METHOD 04/25/2025 5:04 PM [facility] Blood Venous blood specimen / Unknown Venipuncture / Unknown 04/25/2025 10:39 AM EDT 04/25/2025 10:39 AM EDT Adrienne Ashtonti LAB BLOOD ORDERABLES Final Resu lt Performing Organization Address City/[facility]/ZIP Co de Phone Number [facility] [address] [place] [address], [place] [phone] * Alanine aminotransferase (04/25/2025 10:39 AM EDT) ALT (SGPT) 46 10 - 60 unit/L LAB CHEMISTRY METHOD 04/25/2025 5:01 PM EDT [facility] Blood Venous blood specimen / Unknown Venipuncture / Unknown 04/25/2025 10:39 AM EDT 04/25/2025 10:39 AM EDT Adrienne Shannon LAB BLOOD ORDERABLES Final Resu lt Performing Organization Address [facility]/ZIP Co de Phone Number [facility] [address] [place] [address], [place] [phone] * Aspartate aminotransferase (04/25/2025 10:39 AM EDT) AST (SGOT) 25 10 - 42 unit/L LAB CHEMISTRY METHOD 04/25/2025 5:01 PM EDT [facility] Blood Venous blood specimen / Unknown Venipuncture / Unknown 04/25/2025 10:39 AM EDT 04/25/2025 10:39 AM EDT [facility] BLOOD ORDERABLES Final Resu lt Performing Organization Address City/[facility]/ZIP Co de Phone Number [facility] [address] [place] [address], [place] [phone] * (ABNORMAL) Hemoglobin A1c (04/25/2025 10:39 AM EDT) Hemoglobin A1C 6.8(H) <6.5 % LAB CHEMISTRY METHOD 04/25/2025 8:21 PM EDT [facility] Mean Bld Glu Estim. 148 mg/dL LAB CHEMISTRY METHOD 04/25/2025 8:21 PM EDT [facility] Blood Venous blood specimen / Unknown Venipuncture / Unknown 04/25/2025 10:39 AM EDT 04/25/2025 10:39 AM EDT Adrienne Ortega NP LAB BLOOD ORDERABLES Final Resu lt [facility] [address] [place] [address], [place] [phone] * Microalbumin creatinine urine ratio (11/06/2024 10:21 AM EDT) [facility] Creatinine, Urine 61.0 mg/dL LAB CHEMISTRY METHOD 11/06/2024 3:58 PM EDT [facility] Microalb, Ur 5.2 0.0 - 29.0 mg/L LAB CHEMISTRY METHOD 11/06/2024 3:58 PM EDT [facility] Microalb/Creat Ratio 9 <30 mg/g creat LAB CHEMISTRY METHOD 11/06/2024 3:58 PM EDT [facility] Urine Urine specimen obtained by clean catch procedure / Unknown Non-blood Collection / Unknown 11/06/2024 10:21 AM EDT 11/06/2024 10:21 AM EDT Adrienne Ortega NP LAB URINE ORDERABLES Final Resu lt [facility] [address] [place] [address], [place] [phone] * Hm [place] Risk Assessment (10/11/2023) [facility] Falls Risk Assessment Abstracted Historical Provider HEALTH MAINTENANCE Final Result * Depression Screening (10/11/2023) Pathologist [facility] Depression Screening Abstracted Historical Provider HEALTH MAINTENANCE Final Result * Diabetes Foot Exam (10/11/2023) Pathologist [facility] Diabetes: Annual Foot Exam Abstracted Historical Provider HEALTH MAINTENANCE Final Result * Hepatitis C Screening (05/21/2023) Pathologist [facility] Hepatitis C Screening negative Historical Provider HEALTH MAINTENANCE Final Result * Colonoscopy (09/10/2021) Pathologist [facility] Colonoscopy No Interpretation , Abstracted Anatomical Region Laterality Modality Other [facility] Provider HEALTH MAINTENANCE Final Result from Last 3 Months or Most Recently Relevant to Health Maintenance Insurance [employer] [place] [employer] Care Teams Superintendent Communications Relationship Specialty Start Date End Date Adrienne Ortega NP [address] [place] [address] PCP - General Primary Care 06/09/24
== END 2025-07-25 13:27 | disposition home or self-care (01) ==
PROVIDERS: PCP Nurse Practitioner Primary Care; Visit Provider Hospitalist
DX: D86.9 Sarcoidosis, unspecified (principal); J84.9 Interstitial pulmonary disease, unspecified; J45.20 Mild intermittent asthma, uncomplicated; J98.4 Other disorders of lung; J18.9 Pneumonia, unspecified organism; R91.8 Other nonspecific abnormal finding of lung field
CPT/HCPCS: 99214

== ENCOUNTER → 2025-07-25 08:17 | Outpatient (BNVA) | payer MEDICARE, SELFPAY | PROVIDERS: PCP Nurse Practitioner Primary Care; Visit Provider Hospitalist | DX: D86.9 Sarcoidosis, unspecified (principal); J84.9 Interstitial pulmonary disease, unspecified; J45.20 Mild intermittent asthma, uncomplicated; J98.4 Other disorders of lung; R91.8 Other nonspecific abnormal finding of lung field | CPT/HCPCS: 99212 ==